=== PATIENT | female | born 2000 | race Caucasian/White ===

== ENCOUNTER → 2020-08-10 14:39 | Outpatient (BNVA) | payer MEDICAID, SELFPAY | PROVIDERS: Family Provider Nurse Practitioner; PCP Nurse Practitioner; Visit Provider Psychiatry & Neurology Psychiatry | DX: F32.9 Major depressive disorder, single episode, unspecified (principal) | CPT/HCPCS: 90792 ==

== ENCOUNTER → 2020-12-10 08:45 | Outpatient (BNVA) | payer MEDICAID, SELFPAY | PROVIDERS: Family Provider Nurse Practitioner; PCP Nurse Practitioner; Visit Provider Psychiatry & Neurology Psychiatry | DX: F32.9 Major depressive disorder, single episode, unspecified (principal) | CPT/HCPCS: 99214 ==

== ENCOUNTER → 2020-12-14 15:03 | Outpatient (BNVA) | payer MEDICAID, SELFPAY | PROVIDERS: Family Provider Nurse Practitioner; PCP Nurse Practitioner; Visit Provider Counselor Professional | DX: F33.2 Major depressive disorder, recurrent severe without psychotic features (principal); Z65.3 Problems related to other legal circumstances | CPT/HCPCS: 90832 ==

== ENCOUNTER → 2021-05-24 15:14 | Outpatient (BNVA) | payer MEDICAID, SELFPAY | PROVIDERS: Family Provider Nurse Practitioner; PCP Nurse Practitioner; Visit Provider Psychiatry & Neurology Psychiatry | DX: F32.9 Major depressive disorder, single episode, unspecified (principal) | CPT/HCPCS: 99214 ==

== ENCOUNTER → 2021-12-09 08:51 | Outpatient (BNVA) | payer MEDICAID, SELFPAY | PROVIDERS: Family Provider Nurse Practitioner; PCP Nurse Practitioner; Visit Provider Psychiatry & Neurology Psychiatry | DX: F32.9 Major depressive disorder, single episode, unspecified (principal) | CPT/HCPCS: 99214 ==

== ENCOUNTER → 2022-01-13 16:00 | Outpatient (BNVA) | payer MEDICAID, SELFPAY | PROVIDERS: Family Provider Nurse Practitioner; PCP Nurse Practitioner; Visit Provider Nurse Practitioner Psychiatric/Mental Health | DX: F32.9 Major depressive disorder, single episode, unspecified (principal); F41.9 Anxiety disorder, unspecified; G89.29 Other chronic pain; Z03.89 Encounter for observation for other suspected diseases and conditions ruled out | CPT/HCPCS: 99214 ==

== ENCOUNTER → 2022-02-10 15:35 | Outpatient (BNVA) | payer MEDICAID, SELFPAY | PROVIDERS: Family Provider Nurse Practitioner; PCP Nurse Practitioner; Visit Provider Nurse Practitioner Psychiatric/Mental Health | DX: F32.9 Major depressive disorder, single episode, unspecified (principal); F41.9 Anxiety disorder, unspecified; G89.29 Other chronic pain | CPT/HCPCS: 99214 ==

== ENCOUNTER 2022-02-13 17:54 | Emergency (ER) | payer MEDICAID, SELFPAY ==
[2022-02-13 18:03] VITALS: BP 124/87; PULSE 112; RESP 18; TEMP 36.5; O2SAT 98; BMI 32.8
--- NOTE | 2022-02-13 18:21 | W.ED.COVID ---
HPI - COVID General: Chief Complaint: COVID symptoms Stated Complaint: coughing, sore throat Time Seen by Provider: 02/13/22 18:21 Triage information: Has fever, cough or shortness of breath. History of Present Illness: 21-year-old female comes in today for complaints of cough, chest congestion, fever and headache. Patient denies any nausea or vomiting. Patient appears mildly unwell but not toxic. Patient appears in no pain. Patient has a history of depression and anxiety. Patient reports illness for 4 days. Prior covid testing: no COVID 19 common symptoms: positive fever(s), non-productive cough and throat pain; negative nausea, vomiting or diarrhea COVID 19 other sytmptoms: negative chest pain COVID Results: SARS-CoV-2 (PCR) Pending 02/13/22 18:40 02/13/22 Coronavirus Type 229E (PCR) Pending 02/13/22 18:40 02/13/22 Review of Systems General: Reports: 10 or more systems reviewed and unremarkable except in HPI and below Const: Reports: fever(s) and malaise Eyes: Denies: change in vision ENMT: Reports: throat pain and nasal discharge Card: Denies: chest pain Resp: Reports: non-productive cough and chest congestion GI: Denies: abdominal pain, nausea, vomiting, diarrhea or constipation : Denies: difficulty voiding Skin/Breast: Denies: rash PFSH ED PFSH: Medical History (Updated 02/13/22 @ 19:31 by DAVID Rossi) Anxiety MDD (major depressive disorder) Psychiatric care Social History (Updated 02/10/22 @ 15:55 by Theresa Melchor LPN) Smoking and tobacco status: current every day smoker cigarettes Packs smoked per day: 0.5 Years cigarettes smoked: 6 Second hand smoke exposure: Yes Current gender identity: Female Physical Exam Const: COMMON NORMALS: alert HENMT: COMMON NORMALS: normocephalic HEAD & SCALP: normocephalic NOSE: Nasal discharge present MOUTH: Normal oral and palatal mucosa present THROAT: posterior oropharynx normal Eye: COMMON NORMALS: EOMs intact bilaterally Neck/C-Spine: COMMON NORMALS: full ROM Resp: COMMON NORMALS: normal respiratory effort and clear to auscultation bilaterally AUSCULTATION: clear to auscultation bilaterally Cardio: COMMON NORMALS: regular rate and regular rhythm RATE: regular rate RHYTHM: regular rhythm GI: COMMON NORMALS: Soft to palpation and non-tender PALPATION: Yes Soft to palpation Extremity: COMMON NORMALS: normal to inspection Neuro: SENSORIUM/ORIENTATION: Yes alert Psych: COMMON NORMALS: cooperative Skin: COMMON NORMALS: no rashes or lesions noted GENERAL SKIN EXAM: no rashes or lesions noted Course Vital Signs: Vital signs: Vital Signs Temperature 97.7 F 02/13/22 18:03 Pulse Rate 70 02/13/22 18:46 Respiratory Rate 18 02/13/22 18:46 Blood Pressure 113/79 02/13/22 18:46 Pulse Oximetry 96 02/13/22 18:46 [facility] - COVID Medical Decision Making Patient comes in today with complaints of sore throat, cough, and chest congestion. Patient reports illness for 4 days. On exam posterior pharynx is pink and moist, skin is warm and dry. Patient does have some anterior cervical lymphadenopathy, lungs are clear to auscultation. Differential diagnosis includes upper respiratory infection influenza, strep pharyngitis, COVID-19. Chest x-ray was normal. Flu test was negative. Strep a was positive. Believe the patient probably has upper respiratory infection with a secondary strep infection. We will go ahead and treat strep with Augmentin 1 tablet twice a day for 7 days. Patient was also given 1 dose of dexamethasone to help with sore throat. Patient reported understanding of care plan need for follow-up or return to the ER. Lab Data Laboratory Results Influenza Type A Ag Negative (Negative) 02/13/22 18:40 Influenza Type B Ag Negative (Negative) 02/13/22 18:40 Group A Strep Rapid Positive (Negative) H 02/13/22 18:40 SARS-CoV-2 (PCR) Pending 02/13/22 18:40 02/13/22 Coronavirus Type 229E (PCR) Pending 02/13/22 18:40 02/13/22 Discharge Plan Discharge Patient Disposition: Home Clinical Impression: Strep pharyngitis URI (upper respiratory infection) Qualifiers: URI type: unspecified URI Qualified Code(s): J06.9 - Acute upper respiratory infection, unspecified Condition: Stable Prescriptions: New amoxicillin-pot clavulanate 875-125 mg tablet 1 tab PO BID Qty: 14 0RF No Action acetaminophen [Tylenol Extra Strength] 500 mg tablet 500 mg PO QID PRN0RF ibuprofen [Advil] 200 mg tablet 200 mg PO Q6H PRN0RF quetiapine 150 mg tablet extended release 24 hr 150 mg PO .q hs Qty: 30 1RF Rx Instructions: Take one table daily at bedtime venlafaxine 150 mg capsule,extended release 24hr 150 mg PO QAM Qty: 30 1RF Rx Instructions: Take one capsule by mouth every morning Discharge Orders: Discharge ED (Routine); Ordered 02/13/22 Ordered By: Bry Barrett Discharge Diet: Usual diet Discharge Activity: Increase activity as tolerated Patient Instructions: Strep Throat (ED) Activity Restrictions/Additional Instructions: Drink plenty of fluids. Use acetaminophen and ibuprofen for pain. Take antibiotic 1 tablet twice a day for the next 7 days. Follow-up with primary care for further instruction. Return to ER for new concerns. Coding Level of Care Code ED Marketing Sales Supervisor for [facility] Exam Comprehensive
--- NOTE | 2022-02-13 18:22 | XRR_ITS ---
PROCEDURE INFORMATION: Exam: XR Chest Exam date and time: 02/13/2022 6:37 PM Age: 21 years old Clinical indication: Cough TECHNIQUE: Imaging protocol: XR of the chest. Views: 1 view. COMPARISON: No relevant prior studies available. FINDINGS: Lungs: Unremarkable. No consolidation. Pleural spaces: Unremarkable. No pleural effusion. No pneumothorax. Heart/Mediastinum: Unremarkable. No cardiomegaly. Bones/joints: Unremarkable. XR/XR chest 1V portable [id number] IMPRESSION: No acute findings.
[2022-02-13 18:42] VITALS: O2SAT 98
[2022-02-13 18:46] VITALS: BP 113/79; PULSE 70; RESP 18; O2SAT 96
[2022-02-13 19:02] LABS: Rapid Strep A Test Positive (Negative)
[2022-02-13 19:12] LABS: Influenza A by IFA Negative (Negative); Influenza B by IFA Negative (Negative)
[2022-02-13] MEDS: dexamethasone 4 mg Tablet 10 MG PO (19:40)
[2022-02-13] MEDS: amoxicillin-clav 875-125 mg Tablet 1 TAB PO (19:40)
[2022-02-13 19:41] VITALS: BP 155/94; PULSE 107; RESP 20; O2SAT 99
[2022-02-13 20:42] LABS: Adenovirus Not Detected (NOT DETECT); Chlamydia Pneumoniae Not Detected (NOT DETECT); Coronavirus 229E,HKU1,NL63,OC4 Not Detected (NOT DETECT); Human Metapneumovirus Not Detected (NOT DETECT); Human Rhinovirus/Enterovirus Not Detected (NOT DETECT); Influenza A Not Detected (NOT DETECT); Influenza A H1 Not Detected (NOT DETECT); Influenza A H1-2009 Not Detected (NOT DETECT); Influenza A H3 Not Detected (NOT DETECT); Influenza B Not Detected (NOT DETECT); Mycoplasma Pneumoniae Not Detected (NOT DETECT); Parainfluenza Virus Type 1 Not Detected (NOT DETECT); Parainfluenza Virus Type 2 Not Detected (NOT DETECT); Parainfluenza Virus Type 3 Not Detected (NOT DETECT); Parainfluenza Virus Type 4 Not Detected (NOT DETECT); Respiratory Syncytial Virus A Not Detected (NOT DETECT); Respiratory Syncytial Virus B Not Detected (NOT DETECT); SARS-COV-2 Not Detected (NOT DETECT)
== END 2022-02-13 19:43 | disposition home or self-care (01) ==
PROVIDERS: Emergency Provider Nurse Practitioner Family
DX: J02.0 Streptococcal pharyngitis (principal); F17.210 Nicotine dependence, cigarettes, uncomplicated; Z20.822 Contact with and (suspected) exposure to COVID-19
CPT/HCPCS: 71045; 87635; 87804; 87880; 99283; J8540

== ENCOUNTER 2022-03-03 00:23 | Emergency (ER) | payer MEDICAID, SELFPAY ==
[2022-03-03 00:29] VITALS: BMI 31.8
--- NOTE | 2022-03-03 00:35 | W.ED.ALLEREA ---
HPI - Allergic Reaction General: Stated complaint: ALLERGIC REACTION Time Seen by Provider: 03/03/22 00:32 History of Present Illness: HPI narrative: 21-year-old female comes in today with complaints of itchy rash. Patient has [place] staying with her boyfriend [place] a camps[place] and was walking back to the campground and started having the itching rash with hives. Patient called EMS and was given Benadryl in route to the ER. Patient appears well. Patient appears no acute distress. Papular rashes noted generalized. Patient appears to have recently did a whole body shave. Review of Systems Const: Denies: fever(s) Card: Denies: chest pain Resp: Denies: dyspnea Skin/Breast: Reports: rash and pruritus PFS ED PFSH: Medical History (Updated 03/03/22 @ 00:34 by DAVID Rossi) Anxiety MDD (major depressive disorder) Psychiatric care Social History (Updated 02/10/22 @ 15:55 by Theresa Melchor LPN) Smoking and tobacco status: current every day smoker cigarettes Packs smoked per day: 0.5 Years cigarettes smoked: 6 Second hand smoke exposure: Yes Current gender identity: Female Physical Exam Const: COMMON NORMALS: alert HENMT: HEAD & SCALP: normal to inspection MOUTH: Normal oral and palatal mucosa present THROAT: posterior oropharynx normal Eye: COMMON NORMALS: Equal, round and reactive pupils present and EOMs intact bilaterally PUPIL: Yes Equal, round and reactive pupils present Resp: COMMON NORMALS: normal respiratory effort and clear to auscultation bilaterally AUSCULTATION: clear to auscultation bilaterally Cardio: COMMON NORMALS: regular rate and regular rhythm RATE: regular rate RHYTHM: regular rhythm Extremity: COMMON NORMALS: normal to inspection Neuro: SENSORIUM/ORIENTATION: Yes alert Skin: RASHES: rashes noted (Generalized papular rash) MDM - Allergic Reaction Medical Decision Making 21-year-old female comes in with a generalized itchy rash. On exam patient has a generalized papular rash. Patient also appears to have recently did a whole body shave. Patient reports she was [place] the campground when she was walking through the grass and started having itching, scratching, and hives. Vital signs are normal. Differential diagnosis includes contact dermatitis, allergic reaction, pseudobarbae folliculitis. Patient was given 50 mg in route to the ER with Benadryl with improvement in the redness and rash. Patient was given 10 mg of dexamethasone IV and 15 mg of ketorolac for the rash and complaints of a headache. We will continue patient on prednisone 20 mg twice a day for the next 7 days. Patient was also written for some hydroxyzine for the itching. Encourage plenty of fluids and follow-up with primary care. Discharge Plan Discharge Patient Disposition: Home Clinical Impression: Contact dermatitis and eczema due to plant Condition: Stable Prescriptions: New prednisone 20 mg tablet 20 mg PO BID 7 Days Qty: 14 0RF hydroxyzine HCl 25 mg tablet 25 mg PO Q6H PRN (Reason: itching) Qty: 20 0RF No Action acetaminophen [Tylenol Extra Strength] 500 mg tablet 500 mg PO QID PRN0RF ibuprofen [Advil] 200 mg tablet 200 mg PO Q6H PRN0RF quetiapine 150 mg tablet extended release 24 hr 150 mg PO .q hs Qty: 30 1RF Rx Instructions: Take one table daily at bedtime venlafaxine 150 mg capsule,extended release 24hr 150 mg PO QAM Qty: 30 1RF Rx Instructions: Take one capsule by mouth every morning amoxicillin-pot clavulanate 875-125 mg tablet 1 tab PO BID Qty: 14 0RF Discharge Orders: Discharge ED (Routine); Ordered 03/03/22 Ordered By: Bry Barrett Discharge Diet: Usual diet Discharge Activity: Increase activity as tolerated Patient Instructions: Contact Dermatitis (ED) Activity Restrictions/Additional Instructions: Take medications as directed. Drink plenty of water with medication. Follow-up with primary care in 1 week for recheck. Use calamine lotion to rash for discomfort. Return to ER for new concerns. Coding Level of Care Code ED Artistic Associate for Holly Del [facility]
[2022-03-03] MEDS: ketorolac 30 mg/mL INJ 15 MG IVP (00:58)
[2022-03-03] MEDS: dexamethasone 10 mg/mL INJ IVP (00:58)
[2022-03-03 01:14] VITALS: BP 133/94; PULSE 87; RESP 18; O2SAT 97
== END 2022-03-03 01:20 | disposition home or self-care (01) ==
PROVIDERS: Emergency Provider Nurse Practitioner Family
DX: L24.7 Irritant contact dermatitis due to plants, except food (principal); F17.210 Nicotine dependence, cigarettes, uncomplicated
CPT/HCPCS: 96374; 96375; 99283; J1100; J1885

== ENCOUNTER → 2022-03-22 13:16 | Outpatient (BNVA) | payer MEDICAID, SELFPAY | PROVIDERS: Visit Provider Nurse Practitioner Psychiatric/Mental Health | DX: F32.9 Major depressive disorder, single episode, unspecified (principal); F41.9 Anxiety disorder, unspecified; G89.29 Other chronic pain | CPT/HCPCS: 99213 ==

== ENCOUNTER 2022-03-24 16:44 | Emergency (ER) | payer MEDICAID, SELFPAY ==
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
[2022-03-24 16:56] VITALS: BP 142/73; PULSE 121; RESP 26; TEMP 37.1; O2SAT 96; BMI 33.6
[2022-03-24] MEDS: lactated ringers 1,000 ML 999 ML IV (17:43)
--- NOTE | 2022-03-24 17:47 | CTR_ITS ---
PROCEDURE INFORMATION: Exam: CT Head Without Contrast Exam date and time: 03/24/2022 6:09 PM Age: 21 years old Clinical indication: Syncope and collapse; Prior surgery; Surgery date: 6+ months; Surgery type: None to head; Additional info: Sz today with collapse TECHNIQUE: Imaging protocol: Computed tomography of the head without contrast. Axial and coronal reformatted images were created and reviewed. Radiation optimization: All CT scans at this facility use at least one of these dose optimization techniques: automated exposure control; mA and/or kV adjustment per patient size (includes targeted exams where dose is matched to clinical indication); or iterative reconstruction. COMPARISON: No relevant prior studies available. RADIATION DOSE METRICS: Total DLP (mGy-cm): 894.45 FINDINGS: Brain: No CT evidence of acute intracranial hemorrhage or acute territorial infarction. No significant mass effect or midline shift. Basal cisterns patent. Cerebral ventricles: Normal in size and configuration. Paranasal sinuses: Unremarkable. No fluid levels. Mastoid air cells: Grossly unremarkable. Bones/joints: No acute osseous abnormality. Soft tissues: Grossly unremarkable. CT/CT head wo con* [id number] IMPRESSION: 1. No CT evidence of acute intracranial pathology. 2. Additional findings, as above.
[2022-03-24 19:03] VITALS: BP 142/88; PULSE 109; RESP 20; O2SAT 99
[2022-03-24 19:34] LABS: Bilirubin Urine Neg (Negative); Blood Urine 3+ (Negative); Glucose Urine UA Norm (Normal); HCG Qualitative Urine. Negative (Negative); Ketones Urine 1+ (Negative); Nitrate Urine Negative (Negative); Protein Urine 1+ (Negative); Urine Appearance Hazy (CLEAR); Urine Color Red (Yellow); pH Urine 6.5 (5-7)
[2022-03-24 19:35] LABS: Add Urine Microscopic? YES; Leukocyte Esterase Urine Trace (Negative); Urobilinogen Urine 1 mg/dL (Negative)
[2022-03-24 19:44] LABS: Bacteria Urine 2+ /hpf; RBC Urine 50-80 /hpf (0-2); Squamous Epithelial Cell Urine 0-4 /hpf (0-5); WBC Urine 40-55 /hpf (0-5)
[2022-03-24 19:45] LABS: Add Urine Culture? Yes
[2022-03-24 19:46] LABS: Amphetamines Screen Urine Negative (Negative); Barbiturates Screen Urine Negative (Negative); Benzodiazepines Screen Urine Negative (Negative); Cocaine Screen Urine Negative (Negative); Opiate Screen Urine Negative (Negative); PCP Screen Urine Negative (Negative); THC Screen Urine Positive (Negative)
[2022-03-24 19:47] LABS: Basophils % 0.4 %; Eosinophils # 0.2 10^3/uL (0.0-0.8); Hematocrit 34.7 % (37.0-47.0); Hemoglobin 10.3 g/dL (11.5-15.3); Lymphocytes # 3.2 10^3/uL (0.8-4.8); Lymphocytes % 39.5 %; Mean Corpuscular HGB Conc 29.7 g/dL (30.0-36.0); Mean Corpuscular Hemoglobin 24.6 pg (28.0-34.0); Mean Platelet Volume 9.8 fL (7.4-10.4); Monocytes # 0.5 10^3/uL (0.2-0.9); Monocytes % 6.1 %; Neutrophils # 4.22 10^3/uL (1.8-7.7); Neutrophils % 51.8 %; Nucleated Red Blood Cells % 0 %; Platelet Count 380 10^3/cmm (130-400); Red Blood Count 4.18 10^6/uL (4.1-5.3); Red Cell Distribution Width 16.1 % (12.1-15.1); White Blood Count 8.2 10^3/uL (4.0-10.0)
[2022-03-24 20:00] VITALS: BP 131/87; PULSE 95; RESP 25; O2SAT 98
[2022-03-24] MEDS: metoclopramide 5 mg/mL SDV 2 mL 10 MG IVP (20:11)
[2022-03-24] MEDS: diphenhydrAMINE 50 mg/mL SDV 1mL IVP (20:11)
[2022-03-24 20:22] LABS: Alanine Aminotransferase 25 U/L (0-33); Albumin Level 3.5 g/dL (3.5-5.2); Alkaline Phosphatase 109 IU/L (35-105); Aspartate Amino Transferase 24 U/L (0-32); Blood Urea Nitrogen 6 mg/dL (6-20); Calcium 8.4 mg/dL (8.5-10.5); Carbon Dioxide 20 mmol/L (22-29); Chloride 107 mmol/L (98-107); Creatine Phosphokinase 60 U/L (26-192); Creatinine Clr Calc Pharmacy 151.7377; Globulin 3.6 g/dL (1.3-4.6); Glomerular Filtration Rate 123.9 mL/min (90-130); Glucose 62 mg/dL (65-115); Osmolality Calculated 286 mOsm/kg (285-295); Prolactin 11.48 ng/mL (4.8-23.3); Sodium 140 mmol/L (136-145); Thyroid Stimulating Hormone 1.58 uIU/mL (0.27-4.20); Total Bilirubin 0.2 mg/dL (0.15-1.2); Total Protein 7.1 g/dL (6.6-8.7)
[2022-03-24 20:26] LABS: Anion Gap 16.3 (5-19); Potassium 3.3 mmol/L (3.5-5.1)
[2022-03-24 20:38] VITALS: BP 131/87; PULSE 88; RESP 18; O2SAT 98
== END 2022-03-24 20:41 | disposition home or self-care (01) ==
PROVIDERS: Emergency Medicine; Emergency Provider Emergency Medicine
DX: R56.9 Unspecified convulsions (principal); R00.0 Tachycardia, unspecified; R41.0 Disorientation, unspecified
CPT/HCPCS: 70450; 80053; 80306; 81001; 81025; 82550; 84146; 84443; 85025; 87086; 96361; 96374; 96375; 99284; J1200; J2765

== ENCOUNTER 2022-03-29 15:35 | Emergency (ER) | payer MEDICAID, SELFPAY ==
[2022-03-29 16:14] VITALS: BP 127/87; PULSE 85; RESP 18; TEMP 37.2; O2SAT 99; BMI 33.6
--- NOTE | 2022-03-29 17:08 | W.ED.GENADLT ---
HPI - General Adult General: Chief complaint: General Medical Stated complaint: BOIL ON BUTTOCKS Time Seen by Provider: 03/29/22 17:07 History of Present Illness: 21-year-old female comes in today for complaints of pain to the bottom. Patient has difficulty sitting due to the discomfort. Patient reports pain is at the cleft of the buttocks. Patient denies any previous episodes. Patient reports symptoms for the last 3 to 4 days. Patient has a history of major depressive disorder, seizures, and anxiety. Associated symptoms: Deny chest pain, dyspnea, nausea or vomiting Review of Systems General: Reports: 10 or more systems reviewed and unremarkable except in HPI and below Const: Denies: fever(s) Card: Denies: chest pain Resp: Denies: dyspnea GI: Denies: nausea or vomiting Skin/Breast: Reports: erythema and skin tenderness PFSH ED PFSH: Medical History Anxiety MDD (major depressive disorder) Psychiatric care Social History Smoking and tobacco status: current every day smoker cigarettes Packs smoked per day: 0.5 Years cigarettes smoked: 6 Second hand smoke exposure: Yes Current gender identity: Female Female Reproductive History: Date of last menstrual period: 02/24/22 Physical Exam Const: COMMON NORMALS: alert HENMT: HEAD & SCALP: normal to inspection Neck/C-Spine: COMMON NORMALS: full ROM Resp: COMMON NORMALS: normal respiratory effort and clear to auscultation bilaterally AUSCULTATION: clear to auscultation bilaterally Cardio: COMMON NORMALS: regular rate RATE: regular rate Back/Pelvis: SACRUM: erythema and tenderness Extremity: COMMON NORMALS: normal to inspection Neuro: SENSORIUM/ORIENTATION: Yes alert Course Vital Signs: Vital signs: Vital Signs Temperature 98.9 F 03/29/22 16:14 Pulse Rate 84 03/29/22 17:11 Respiratory Rate 14 03/29/22 17:11 Blood Pressure 122/89 03/29/22 17:11 Pulse Oximetry 100 03/29/22 17:11 [facility] - General Adult Medical Decision Making 21-year-old female comes in today with complaints of tenderness to the cleft of the buttocks. On exam there is area of induration and redness at the gluteal cleft. Vital signs are normal without significant fever. Patient denies any nausea or vomiting. Differential diagnosis includes pilonidal cyst, skin abscess, cellulitis, intertrigo. No fluctuance was noted on palpation suspect at this time cellulitis with possible developing abscess. We will go ahead and start patient on clindamycin 300 mg 4 times a day for the next 7 days. Patient was given hydrocodone to assist with pain. Patient was recommended to do good hygiene with frequent warm soaks. Encourage fluids rest and Tylenol and ibuprofen for further comfort. Patient reported understanding. Discharge Plan Discharge Patient Disposition: Home Clinical Impression: Cellulitis of buttock Condition: Stable Prescriptions: New clindamycin HCl 300 mg capsule 300 mg PO QID 7 Days Qty: 28 0RF hydrocodone-acetaminophen 5-325 mg tablet 1 tab PO TID PRN (Reason: pain) Qty: 6 0RF No Action hydroxyzine HCl 25 mg tablet 25 mg PO BID PRN (Reason: anxiety) Qty: 60 2RF Rx Instructions: Take one tablet twice a day, if needed for anxiety venlafaxine 150 mg capsule,extended release 24hr 150 mg PO QAM Qty: 30 2RF Rx Instructions: Take one capsule by mouth every morning quetiapine 150 mg tablet extended release 24 hr 150 mg PO BEDTIME 0RF Rx Instructions: Take one table daily at bedtime Discharge Orders: Discharge ED (Routine); Ordered 03/29/22 Ordered By: Bry Barrett Discharge Diet: Usual diet Discharge Activity: Increase activity as tolerated Patient Instructions: Cellulitis (ED), Opioid Safety Activity Restrictions/Additional Instructions: Warm water soaks. Soaks are for comfort and to help bring blood flow into the area for the infection. Drink plenty of water with medication. Use acetaminophen and ibuprofen for pain. Use hydrocodone for severe pain. Follow-up with primary care in 3 days for recheck. Return to ER for new concerns. Coding Level of Care Code ED Environmental Services Tech for Holly Fwd Exam Detailed
[2022-03-29 17:11] VITALS: BP 122/89; PULSE 84; RESP 14; O2SAT 100
--- NOTE | 2022-03-29 17:12 | PC.NURSE ---
Patient states that for about a week she has a boil on her upper buttocks. Patient states it is hard, it looks red.
== END 2022-03-29 17:55 | disposition home or self-care (01) ==
PROVIDERS: Emergency Provider Nurse Practitioner Family
DX: L03.317 Cellulitis of buttock (principal)
CPT/HCPCS: 99283

== ENCOUNTER → 2022-04-28 10:22 | Outpatient (BNVA) | payer MEDICAID, SELFPAY | PROVIDERS: Visit Provider Nurse Practitioner Psychiatric/Mental Health | DX: F41.9 Anxiety disorder, unspecified (principal); F32.9 Major depressive disorder, single episode, unspecified | CPT/HCPCS: 99214 ==

== ENCOUNTER → 2022-10-03 14:53 | Outpatient (BNVA) | payer MEDICAID, SELFPAY | PROVIDERS: PCP Family Medicine; Visit Provider Family Medicine | DX: M25.562 Pain in left knee (principal) | CPT/HCPCS: 73562 ==

== ENCOUNTER → 2022-10-17 17:36 | Outpatient (BNVA) | payer MEDICAID, SELFPAY | PROVIDERS: PCP Family Medicine; Visit Provider Family Medicine | DX: Z01.419 Encounter for gynecological examination (general) (routine) without abnormal findings (principal) | CPT/HCPCS: 88175 ==

== ENCOUNTER 2022-10-18 20:13 | Emergency (ER) | payer MEDICAID, SELFPAY ==
[2022-10-18 20:45] VITALS: BP 111/58; PULSE 76; RESP 17; O2SAT 100; BMI 35.4
[2022-10-18 21:08] LABS: Basophils # 0.1 10^3/uL (0.0-0.1); Basophils % 0.5 %; Eosinophils # 0.3 10^3/uL (0.0-0.8); Eosinophils % 3.1 %; Hematocrit 41.7 % (37.0-47.0); Hemoglobin 13.2 g/dL (11.5-15.3); Lymphocytes # 4.5 10^3/uL (0.8-4.8); Lymphocytes % 40.5 %; Mean Corpuscular HGB Conc 31.7 g/dL (30.0-36.0); Mean Corpuscular Hemoglobin 26.2 pg (28.0-34.0); Mean Corpuscular Volume 82.9 fl (81-99); Mean Platelet Volume 9.4 fL (7.4-10.4); Monocytes # 0.7 10^3/uL (0.2-0.9); Monocytes % 5.9 %; Neutrophils # 5.51 10^3/uL (1.8-7.7); Neutrophils % 49.8 %; Nucleated Red Blood Cells % 0 %; Platelet Count 444 10^3/cmm (130-400); Red Blood Count 5.03 10^6/uL (4.1-5.3)
[2022-10-18 21:37] LABS: Alanine Aminotransferase 30 U/L (0-33); Albumin Level 4.5 g/dL (3.5-5.2); Alkaline Phosphatase 133 U/L (35-105); Anion Gap 18.9 (5-19); Aspartate Amino Transferase 23 U/L (0-32); Blood Urea Nitrogen 10 mg/dL (6-20); Calcium 10.1 mg/dL (8.5-10.5); Carbon Dioxide 23 mmol/L (22-29); Chloride 99 mmol/L (98-107); Globulin 4.7 g/dL (1.3-4.6); Glomerular Filtration Rate 88.1 mL/min (90-130); Glucose 84 mg/dL (65-115); Lipase 32 U/L (13-60); Osmolality Calculated 282 mOsm/kg (285-295); Potassium 3.9 mmol/L (3.5-5.1); Sodium 137 mmol/L (136-145); Total Bilirubin 0.3 mg/dL (0.15-1.2); Total Protein 9.2 g/dL (6.6-8.7)
[2022-10-18 22:38] LABS: HCG, Serum Qual Negative (Negative)
== END 2022-10-18 23:40 | disposition left against medical advice (07) ==
PROVIDERS: Emergency Medicine; Emergency Provider Family Medicine; PCP Family Medicine
DX: Z53.21 Procedure and treatment not carried out due to patient leaving prior to being seen by health care provider (principal)
CPT/HCPCS: 80053; 83690; 84703; 85025

== ENCOUNTER 2023-03-29 21:07 | Emergency (ER) | payer MEDICAID, SELFPAY ==
[2023-03-29 21:11] VITALS: BP 126/82; PULSE 77; RESP 17; TEMP 36.6; O2SAT 99; BMI 31.8
[2023-03-29 21:46] LABS: Basophils % 0.3 %; Eosinophils # 0.1 10^3/uL (0.0-0.8); Hematocrit 37.9 % (37.0-47.0); Lymphocytes # 3.3 10^3/uL (0.8-4.8); Lymphocytes % 36.7 %; Mean Corpuscular HGB Conc 31.7 g/dL (30.0-36.0); Mean Corpuscular Volume 88.3 fl (81-99); Mean Platelet Volume 9.6 fL (7.4-10.4); Monocytes # 0.6 10^3/uL (0.2-0.9); Monocytes % 6.3 %; Neutrophils # 4.92 10^3/uL (1.8-7.7); Neutrophils % 55.5 %; Nucleated Red Blood Cells % 0 %; Platelet Count 381 10^3/cmm (130-400); Red Blood Count 4.29 10^6/uL (4.1-5.3); Red Cell Distribution Width 15.2 % (12.1-15.1); White Blood Count 8.9 10^3/uL (4.0-10.0)
[2023-03-29 22:05] LABS: HCG, Serum Qual Negative (Negative)
[2023-03-29 22:17] LABS: Alanine Aminotransferase 19 U/L (0-33); Albumin Level 3.9 g/dL (3.5-5.2); Alkaline Phosphatase 104 U/L (35-105); Anion Gap 15.1 (5-19); Aspartate Amino Transferase 19 U/L (0-32); Blood Urea Nitrogen 8 mg/dL (6-20); Calcium 9.1 mg/dL (8.5-10.5); Carbon Dioxide 23 mmol/L (22-29); Chloride 102 mmol/L (98-107); Globulin 3.7 g/dL (1.3-4.6); Glomerular Filtration Rate 102.8 mL/min (90-130); Glucose 80 mg/dL (65-115); Osmolality Calculated 279 mOsm/kg (285-295); Potassium 4.1 mmol/L (3.5-5.1); Sodium 136 mmol/L (136-145); Total Bilirubin 0.2 mg/dL (0.15-1.2); Total Protein 7.6 g/dL (6.6-8.7)
--- NOTE | 2023-03-29 22:51 | ED_ITS ---
HPI - Abdominal Pain General: Chief Complaint: Abdominal Pain Stated Complaint: Upper ABD Pain Time Seen by Provider: 03/29/23 22:49 History of Present Illness: 22-year-old female comes in today for complaints of abdominal pain radiating to the right lower quadrant. Patient appears nontoxic. Patient reports no episodes of emesis today. Patient reports some loose stools. Patient reports chills but no fever. Patient has had 1 and her gallbladder out. Patient takes medications for mental health disorder. Patient denies any falls or injuries. Associated Symptoms: Reports chills and nausea; Denies constipation, diarrhea, fever(s) and vomiting Review of Systems Const: Reports: chills; Denies: fever(s) Card: Denies: chest pain Resp: Denies: dyspnea GI: Reports: abdominal pain and nausea; Denies: vomiting, diarrhea or constipation : Denies: difficulty voiding, vaginal bleeding or vaginal discharge Musc: Denies: neck pain or back pain Skin/Breast: Denies: rash Neuro: Denies: headache(s) PFSH ED PFSH: Medical History Anxiety MDD (major depressive disorder) Psychiatric care Family History Mother Cancer Reportedly Ovarian cancer in her late 20's resulting in a hysterectomy Unknown Cancer unknown family member, breast cancer Social History Smoking and tobacco status: current every day smoker cigarettes Packs smoked per day: 0.5 Years cigarettes smoked: 6 Second hand smoke exposure: Yes Current gender identity: Female Female Reproductive History: Para: 1 Spontaneous abortions: Yes Physical Exam Const: COMMON NORMALS: alert HENMT: COMMON NORMALS: normocephalic HEAD & SCALP: normocephalic Neck/C-Spine: COMMON NORMALS: full ROM Resp: COMMON NORMALS: normal respiratory effort and clear to auscultation bilaterally AUSCULTATION: clear to auscultation bilaterally Cardio: COMMON NORMALS: regular rate and regular rhythm RATE: regular rate RHYTHM: regular rhythm GI: COMMON NORMALS: Soft to palpation AUSCULTATION: Yes normoactive bowel sounds PALPATION: Yes Soft to palpation and Yes Tenderness to palpation present (GI) Extremity: COMMON NORMALS: normal to inspection Neuro: SENSORIUM/ORIENTATION: Yes alert Skin: COMMON NORMALS: turgor normal GENERAL SKIN EXAM: turgor normal Course Vital Signs: Vital signs: Vital Signs Temperature 97.8 F 03/29/23 21:11 Pulse Rate 77 03/29/23 21:11 Respiratory Rate 17 03/29/23 21:11 Blood Pressure 126/82 03/29/23 21:11 Pulse Oximetry 99 03/29/23 21:11 Oxygen Delivery Me thod Room Air 03/29/23 21:11 MDM - Abdominal Pain Medical Decision Making 22-year-old female comes in today for complaints of lower abdominal pain start ing yesterday. Patient reports worsening pain today. Patient reports nausea with only vomiting yesterday. Patient states it reminds her when she had ovarian cyst. Patient denies any abnormal bleeding or vaginal discharge. Vital signs are normal. Abdomen is soft with tenderness in the right lower quadrant. Differential diagnosis includes appendicitis, ovarian cyst, muscle strain, gastroenteritis, renal colic. Laboratory values were unremarkable. Urinalysis was clean. CT of the abdomen pelvis noted prominent fluid in the small bowel suggesting enteritis. Reviewed exam with patient suspect gastroenteritis. Will treat with Zofran for nausea and hydrocodone for pain and discomfort. Recommend follow-up with primary care. Return to ED for worsening symptoms or new concerns. Patient reported understanding agreed to plan. Lab Data 03/29/23 21:22 03/29/23 21:22 Labs/Radiology: Radiology Impressions Abdomen/Pelvis CT 03/29/23 22:57 IMPRESSION: 1. Prominent fluid in the small bowel without dilation suggestive of an enteritis. 2. Hepatic steatosis. 3. Cholecystectomy. Laboratory Results WBC 8.9 10^3/uL (4.0-10.0) 03/29/23 21: RBC 4.29 10^6/uL (4.1-5.3) 03/29/23: Hgb 12.0 g/dL (11.5-15.3) 03/29/23: Hct 37.9 % (37.0-47.0) 03/29/23 21: MCV 88.3 fl (81-99) 03/29/23 21: MCH 28.0 pg (28.0-34.0) 03/29/23: MCHC 31.7 g/dL (30.0-36.0) 03/29/23 21: RDW 15.2 % (12.1-15.1) H 03/29/23 21: Plt Count 381 10^3/cmm (130-400) 03/29/23 21: MPV 9.6 fL (7.4-10.4) 03/29/23 21: Neut % (Auto) 55.5 % 03/29/23 21: Lymph % (Auto) 36.7 % 03/29/23 21:22 [place] % (Auto) 6.3 % 03/29/23 21:22 Eos % (Auto) 1.0 % 03/29/23 21: Baso % (Auto) 0.3 % 03/29/23 21: Neut # (Auto) 4.92 10^3/uL (1.8-7.7) 03/29/23 21: Lymph # (Auto) 3.3 10^3/uL (0.8-4.8) 03/29/23 21: [place] # (Auto) 0.6 10^3/uL (0.2-0.9) 03/29/23 21:22 Eos # (Auto) 0.1 10^3/uL (0.0-0.8) 03/29/23 21: Baso # (Auto) 0.0 10^3/uL (0.0-0.1) 03/29/23 21: Nucleated RBC % (auto) 0 % 03/29/23 21: Nucleated RBCs # 0.0 /100WBC 03/29/23 21: Sodium 136 mmol/L (136-145) 03/29/23 21: Potassium 4.1 mmol/L (3.5-5.1) 03/29/23 21: Chloride 102 mmol/L (98-107) 03/29/23 21: Carbon Dioxide 23 mmol/L (22-29) 03/29/23 21:22 Anion Gap 15.1 (5-19) 03/29/23 21:22 BUN 8 mg/dL (6-20) 03/29/23 21: Creatinine 0.7 mg/dL (0.5-0.9) 03/29/23 21: GFR Calculation 102.8 mL/min (90-130) 03/29/23 21:22 Glucose 80 mg/dL (65-115) 03/29/23 21:22 Calculated Osmolality 279 mOsm/kg (285-295) L 03/29/23 21:22 Calcium 9.1 mg/dL (8.5-10.5) 03/29/23 21:22 Total Bilirubin 0.2 mg/dL (0.15-1.2) 03/29/23 21:22 AST 19 U/L (0-32) 03/29/23 21: ALT 19 U/L (0-33) 03/29/23 21:22 Alkaline Phosphatase 104 U/L (35-105) 03/29/23 21:22 Total Protein 7.6 g/dL (6.6-8.7) 03/29/23 21: Albumin 3.9 g/dL (3.5-5.2) 03/29/23 21: Globulin 3.7 g/dL (1.3-4.6) 03/29/23 21: Lipase 30 U/L (13-60) 03/29/23 21:22 HCG, Qual Negative (Negative) 03/29/23 21:22 Urine Color Yellow (Yellow) 03/29/23 23:50 Urine Appearance Clear (CLEAR) 03/29/23 23:50 Urine pH 5 (5-7) 03/29/23 23:50 Ur Specific [place] 1.015 (1.005-1.030) 03/29/23 23:50 Urine Protein Neg (Negative) 03/29/23 23:50 Urine Glucose (UA) Norm (Normal) 03/29/23 23:50 Urine Ketones Negative (Negative) 03/29/23 23:50 Urine Blood Neg (Negative) 03/29/23 23:50 Urine Nitrate Negative (Negative) 03/29/23 23:50 Urine Bilirubin Neg (Negative) 03/29/23 23:50 Urine Urobilinogen Norm mg/dL (Negative) 03/29/23 23:50 Ur Leukocyte Esterase Negative (Negative) 03/29/23 23:50 Discharge Plan Discharge Patient Disposition: Home Clinical Impression: Gastroenteritis Condition: Stable Prescriptions: New ondansetron HCl 4 mg tablet 4 mg PO Q8H PRN (Reason: nausea and vomiting) Qty: 7 0RF hydrocodone-acetaminophen 5-325 mg tablet 1 tab PO Q8H PRN (Reason: pain (scale score 7-10)) Qty: 6 0RF No Action bupropion HCl 75 mg tablet 75 mg PO BID Qty: 60 1RF Rx Instructions: After stopping venlfaxine:Take 1 tablet twice a day, at 8 AM and 2 PM hydroxyzine HCl 25 mg tablet 25 mg PO BID PRN (Reason: anxiety) Qty: 60 2RF Rx Instructions: Take one tablet twice a day, if needed for anxiety quetiapine 150 mg tablet extended release 24 hr 150 mg PO BEDTIME Qty: 30 2RF Rx Instructions: Take one table daily at bedtime Discharge Orders: Discharge ED (Routine); Ordered 03/30/23 Ordered By: Bry Barrett Referrals: Jailene Bradshaw MD [Primary Care Provider] - Discharge Diet: Usual diet Discharge Activity: Increase activity as tolerated Patient Instructions: Gastroenteritis (ED) Activity Restrictions/Additional Instructions: Drink plenty of water and fluids. Use ondansetron 4 mg every 8 hours as needed for nausea or vomiting. Use hydrocodone for severe abdominal pain. Activity as tolerated. Follow-up with primary care for further instructions. Return to ED for new concerns. Coding Level of Care Code ED Traditional Chinese Herbalist for Holly Del Cid
--- NOTE | 2023-03-29 22:57 | CTR_ITS ---
PROCEDURE INFORMATION: Exam: CT Abdomen And Pelvis With Contrast Exam date and time: 03/29/2023 11:19 PM Age: 22 years old Clinical indication: Abdominal pain; Prior surgery; Surgery date: 6+ months; Surgery type: Gb; Patient HX: C/O periumbilical pain; Additional info: Diffuse abd pain TECHNIQUE: Imaging protocol: Computed tomography of the abdomen and pelvis with contrast. Radiation optimization: All CT scans at this facility use at least one of these dose optimization techniques: automated exposure control; mA and/or kV adjustment per patient size (includes targeted exams where dose is matched to clinical indication); or iterative reconstruction. Contrast material: OMNI 350; Contrast volume: 100 ml; Contrast route: INTRAVENOUS (IV); REPORTING DATA: Count of CT and Cardiac NM exams in prior 12 months: This patient has received 0 known CTs and 0 known cardiac nuclear medicine studies in the 12 months prior to the current study. COMPARISON: CR XR chest 1V portable [id number] 02/13/2022 6:37 PM RADIATION DOSE METRICS: Total DLP (mGy-cm): 828.53 FINDINGS: Liver: Hepatic steatosis. Gallbladder and bile ducts: Cholecystectomy. Pancreas: Normal. No ductal dilation. Spleen: Normal. No splenomegaly. Adrenal glands: Normal. No mass. Kidneys and ureters: Normal. No hydronephrosis. Stomach and bowel: Prominent fluid in the small bowel without dilation suggestive of an enteritis. Appendix: No evidence of appendicitis. Intraperitoneal space: Unremarkable. No free air. No significant fluid collection. Vasculature: Unremarkable. No abdominal aortic aneurysm. Lymph nodes: Unremarkable. No enlarged lymph nodes. Urinary bladder: Unremarkable as visualized. Reproductive: Unremarkable as visualized. Bones/joints: Unremarkable. No acute fracture. Soft tissues: Unremarkable. CT/CT abdomen pelvis w con* [id number] IMPRESSION: 1. Prominent fluid in the small bowel without dilation suggestive of an enteritis. 2. Hepatic steatosis. 3. Cholecystectomy.
[2023-03-29] MEDS: iohexol 350 mg/mL 500 mL Btl (per mL) IV (23:22)
[2023-03-29] MEDS: sodium chloride 0.9% 1,000 ML 999 ML IV (23:31)
[2023-03-29] MEDS: diphenhydrAMINE 50 mg/mL SDV 1mL 12.5 MG IVP (23:32)
[2023-03-29] MEDS: ketorolac 30 mg/mL INJ 15 MG IVP (23:33)
[2023-03-29] MEDS: metoclopramide 5 mg/mL SDV 2 mL 10 MG IVP (23:34)
[2023-03-29 23:58] LABS: Add Urine Microscopic? NO; Bilirubin Urine Neg (Negative); Blood Urine Neg (Negative); Charge for UA Resulting for Rev; Glucose Urine UA Norm (Normal); Ketones Urine Negative (Negative); Leukocyte Esterase Urine Negative (Negative); Nitrate Urine Negative (Negative); Protein Urine Neg (Negative); Specific Gravity, Urine 1.015 (1.005-1.030); Urine Appearance Clear (CLEAR); Urine Color Yellow (Yellow); Urobilinogen Urine Norm (Negative); pH Urine 5 (5-7)
[2023-03-30 00:16] LABS: Lipase 30 U/L (13-60)
[2023-03-30] MEDS: HYDROcodone-acetaminophen 5-325 mg Tablet 1 TAB PO (00:32)
[2023-03-30] MEDS: ondansetron 4 MG Tablet PO (00:33)
[2023-03-30 00:53] VITALS: BP 151/82; PULSE 82; O2SAT 100
== END 2023-03-30 00:55 | disposition home or self-care (01) ==
PROVIDERS: Emergency Medicine; Emergency Provider Nurse Practitioner Family; PCP Family Medicine
DX: K52.9 Noninfective gastroenteritis and colitis, unspecified (principal); F17.210 Nicotine dependence, cigarettes, uncomplicated
CPT/HCPCS: 36415; 74177; 80053; 81003; 83690; 84703; 85025; 96361; 96374; 96375; 99284; J1200; J1885; J2765; J7030; Q0162; Q9967

== ENCOUNTER → 2023-05-15 13:00 | Outpatient (BNVA) | payer MEDICAID, SELFPAY | PROVIDERS: PCP Family Medicine; Visit Provider Obstetrics & Gynecology | DX: Z01.818 Encounter for other preprocedural examination (principal); R87.611 Atypical squamous cells cannot exclude high grade squamous intraepithelial lesion on cytologic smear of cervix (ASC-H) | CPT/HCPCS: 81025; 88305 ==

== ENCOUNTER 2023-09-27 15:15 | Emergency (ER) | payer MEDICAID, SELFPAY ==
[2023-09-27 15:16] VITALS: BP 135/84; PULSE 61; RESP 18; TEMP 36.8; O2SAT 100; BMI 28.3
[2023-09-27 15:20] VITALS: BP 135/84; O2SAT 100
--- NOTE | 2023-09-27 15:34 | ED_ITS ---
HPI - Abdominal Pain General: Chief Complaint: Abdominal Pain Stated Complaint: abd pain Time Seen by Provider: 09/27/23 15:23 History of Present Illness: 23-year-old female comes in today with complaints of of upper abdominal pain for 5 days. Patient appears nontoxic. Patient appears anxious. Patient appears in mild to no pain. Patient has a history of gastritis, gallbladder disease with cholecystectomy, asthma, anxiety disorder, depression disorder, bipolar disorder, and seizure. Patient has been using ibuprofen and Aleve for pain with minimal to no relief. Patient does admit that she has been without her routine medications for the last 2 months. Patient states that she has had cholecystectomy and a in the past. Associated Symptoms: Reports chills, nausea and vomiting; Denies constipation and diarrhea Review of Systems General: Reports: 10 or more systems reviewed and unremarkable except in HPI and below Const: Reports: chills ENMT: Denies: throat pain Card: Denies: chest pain Resp: Reports: dyspnea GI: Reports: nausea and vomiting; Denies: diarrhea or constipation : Reports: vaginal discharge; Denies: flank pain, difficulty voiding or vaginal bleeding Musc: Denies: back pain Skin/Breast: Denies: rash Neuro: Denies: headache(s) Psych: Reports: anxiety PFSH ED PFSH: Medical History Anxiety MDD (major depressive disorder) Psychiatric care Family History Mother Cancer Reportedly Ovarian cancer in her late 20's resulting in a hysterectomy Unknown Cancer unknown family member, breast cancer Social History Smoking and tobacco/nicotine status: current every day tobacco/nicotine user cigarettes Packs smoked per day: 0.5 Years cigarettes smoked: 6 Second hand smoke exposure: Yes Current gender identity: Female Female Reproductive History: Para: 1 Spontaneous abortions: Yes Physical Exam Const: COMMON NORMALS: alert HENMT: COMMON NORMALS: normocephalic HEAD & SCALP: normocephalic MOUTH: Normal oral and palatal mucosa present Eye: GENERAL EYE: appearance normal, both eyes and all related structures Neck/C-Spine: COMMON NORMALS: full ROM Resp: COMMON NORMALS: normal respiratory effort and clear to auscultation bilaterally AUSCULTATION: clear to auscultation bilaterally Cardio: COMMON NORMALS: regular rate and regular rhythm RATE: regular rate RHYTHM: regular rhythm GI: COMMON NORMALS: Soft to palpation INSPECTION: Yes normal to inspection AUSCULTATION: Yes normoactive bowel sounds PALPATION: Yes Soft to p alpation, Yes Tenderness to palpation present (GI) (Generalized), No Guarding due to palpation present (GI) and No Rebound tenderness present : BLADDER/KIDNEY EXAM: Yes CVA tenderness (Mild) on the right Back/Pelvis: GENERAL BACK: Yes CVA tenderness (Mild) Extremity: COMMON NORMALS: normal to inspection and no pedal edema Neuro: SENSORIUM/ORIENTATION: Yes alert Skin: COMMON NORMALS: turgor normal GENERAL SKIN EXAM: turgor normal Course Vital Signs: Vital signs: Vital Signs Temperature 98.2 F 09/27/23 15:16 Pulse Rate 61 09/27/23 16:29 Respiratory Rate 18 09/27/23 16:29 Blood Pressure 135/84 09/27/23 15:16 Pulse Oximetry 100 09/27/23 16:29 Oxygen Delivery Me thod Room Air 09/27/23 16:29 MDM - Abdominal Pain Medical Decision Making 23-year-old female comes in today for complaints of epigastric abdominal pain for 5 days with no relief from Tylenol or ibuprofen. Patient appears nontoxic. Abdomen soft without guarding or rebound tenderness. Bowel sounds are present. Patient moves all extremities well. Patient endorses right CVA tenderness with percussion. Vital signs are normal. Differential diagnosis includes but not limited to gastritis, pancreatitis, bowel obstruction, peptic ulcer disease, renal calculi, urinary tract infection, constipation, malingering, anxiety disorder, choledocholithiasis, gastroenteritis. Acute abdomen series was unremarkable. CBC CMP were normal. Urinalysis was normal. Patient was treated with albuterol 2 puffs and lorazepam and famotidine. Patient significant reduction in pain and shortness of breath. We will continue patient on medication for gastritis, anxiety, and asthma. Patient needs to follow-up with primary care for further evaluation and refills of other medications that she has been without. Patient was stable and improved and discharged home. Lab Data 09/27/23 15:33 09/27/23 15:33 Labs/Radiology: Laboratory Results WBC 8.58 10^3/uL (3.29-11.43) 09/27/23 15: RBC 4.27 10^6/uL (3.85-5.65) 09/27/23 15: Hgb 11.40 g/dL (11.27-16.99) 09/27/23 15: Hct 36.4 % (36-47) 09/27/23 15: MCV 85.2 fl (85-98) 09/27/23 15: MCH 26.7 pg (27-33) L 09/27/23 15: MCHC 31.3 g/dL (30-55) 09/27/23 15: RDW 16.4 % (12.1-15.1) H 09/27/23 15: Plt Count 299 10^3/cmm (157-399) 09/27/23 15: MPV 9.8 fL (7.4-10.4) 09/27/23 15: Neut % (Auto) 58.8 % 09/27/23: Lymph % (Auto) 34.8 % 09/27/23 15: [place] % (Auto) 5.1 % 09/27/23 15: Eos % (Auto) 0.9 % 09/27/23: Baso % (Auto) 0.3 % 09/27/23: Neut # (Auto) 5.03 10^3/uL (1.8-7.7) 09/27/23: Lymph # (Auto) 3.0 10^3/uL (0.8-4.8) 09/27/23: [place] # (Auto) 0.4 10^3/uL (0.2-0.9) 09/27/23 15: Eos # (Auto) 0.1 10^3/uL (0.0-0.8) 09/27/23: Baso # (Auto) 0.0 10^3/uL (0.0-0.1) 09/27/23 15: Nucleated RBC % (auto) 0 % 09/27/23 15: Nucleated RBCs # 0.0 /100WBC 09/27/23 15: Sodium 137 mmol/L (136-145) 09/27/23 15: Potassium 3.4 mmol/L (3.5-5.1) L 09/27/23 15:33 Chloride 104 mmol/L (98-107) 09/27/23 15:33 Carbon Dioxide 19 mmol/L (22-29) L 09/27/23 15:33 Anion Gap 17.4 (5-19) 09/27/23 15:33 BUN 6 mg/dL (6-20) 09/27/23 15:33 Creatinine 0.7 mg/dL (0.5-0.9) 09/27/23 15:33 GFR Calculation 102.0 mL/min (90-130) 09/27/23 15:33 Glucose 86 mg/dL (65-115) 09/27/23 15:33 Calculated Osmolality 281 mOsm/kg (285-295) L 09/27/23 15:33 Calcium 9.5 mg/dL (8.5-10.5) 09/27/23 15:33 Total Bilirubin 0.2 mg/dL (0.15-1.2) 09/27/23 15:33 AST 15 U/L (0-32) 09/27/23 15:33 ALT 19 U/L (0-33) 09/27/23 15:33 Alkaline Phosphatase 97 U/L (35-105) 09/27/23 15:33 Total Protein 7.4 g/dL (6.6-8.7) 09/27/23 15:33 Albumin 3.8 g/dL (3.5-5.2) 09/27/23 15:33 Globulin 3.6 g/dL (1.3-4.6) 09/27/23 15: Lipase 48 U/L (13-60) 09/27/23 15:33 HCG, Qual Negative (Negative) 09/27/23 15:33 Urine Color Yellow (Yellow) 09/27/23 16:17 Urine Appearance Clear (CLEAR) 09/27/23 16:17 Urine pH 7 (5-7) 09/27/23 16:17 Ur Specific Surveyor 1.010 (1.005-1.030) 09/27/23 16:17 Urine Protein Neg (Negative) 09/27/23 16:17 Urine Glucose (UA) Norm (Normal) 09/27/23 16:17 Urine Ketones Negative (Negative) 09/27/23 16:17 Urine Blood Neg (Negative) 09/27/23 16:17 Urine Nitrate Negative (Negative) 09/27/23 16:17 Urine Bilirubin Neg (Negative) 09/27/23 16:17 Urine Urobilinogen Norm mg/dL (Negative) 09/27/23 16:17 Ur Leukocyte Esterase Negative (Negative) 09/27/23 16:17 XR interpretation done by ED provider, pending radiology final review Discharge Plan Discharge Patient Disposition: Home Clinical Impression: Anxiety Gastritis Qualifiers: Gastritis type: unspecified gastritis Chronicity: unspecified Gastritis bleeding: without bleeding Qualified Code(s): K29.70 - Gastritis, unspecified, without bleeding Abdominal pain Qualifiers: Abdominal location: right upper quadrant Qualified Code(s): R10.11 - Right upper quadrant pain Condition: Stable Prescriptions: New pantoprazole 20 mg tablet,delayed release (DR/EC) 20 mg PO DAILY Qty: 30 0RF dicyclomine 10 mg capsule 10 mg PO QID PRN (Reason: abdominal pain) Qty: 20 0RF hydroxyzine HCl 50 mg tablet 50 mg PO TID PRN (Reason: anxiety) Qty: 15 0RF Discharge Orders: Discharge ED (Routine); Ordered 09/27/23 Ordered By: Bry Barrett Referrals: Jailene Bradshaw MD [Primary Care Provider] - Discharge Diet: Usual diet Discharge Activity: Increase activity as tolerated Patient Instructions: Abdominal Pain (ED) Activity Restrictions/Additional Instructions: Home and rest. Drink plenty water and fluids. Take medications as directed. Case management will contact you regarding follow-up appointment with primary care. Return to ED for new concerns or worsening symptoms. Worsening symptoms include but not limited to high fever greater than 100.4, blood in vomit or stool, or severe pain. Coding Level of Care Code ED Transmission Operator for Holly Del Cid
--- NOTE | 2023-09-27 15:36 | XRR_ITS ---
PROCEDURE INFORMATION: Exam: XR Abdomen Exam date and time: 09/27/2023 4:08 PM Age: 23 years old Clinical indication: Abdominal pain; Epigastric; Additional info: Epigastric discomfort TECHNIQUE: Imaging protocol: Radiologic exam of the abdomen. Views: 2 Views. Upright and supine views. COMPARISON: CT abdomen pelvis w con* [id number] 03/29/2023 11:19 PM FINDINGS: Lungs are clear. Nonobstructive bowel gas pattern. No free air. No calcifications in the expected region of the kidneys. XR/XR acute abdomen series [id number] IMPRESSION: No acute findings.
[2023-09-27 15:40] LABS: Basophils % 0.3 %; Eosinophils # 0.1 10^3/uL (0.0-0.8); Eosinophils % 0.9 %; Hematocrit 36.4 % (36-47); Lymphocytes % 34.8 %; Mean Corpuscular HGB Conc 31.3 g/dL (30-55); Mean Corpuscular Hemoglobin 26.7 pg (27-33); Mean Corpuscular Volume 85.2 fl (85-98); Mean Platelet Volume 9.8 fL (7.4-10.4); Monocytes # 0.4 10^3/uL (0.2-0.9); Monocytes % 5.1 %; Neutrophils # 5.03 10^3/uL (1.8-7.7); Neutrophils % 58.8 %; Nucleated Red Blood Cells % 0 %; Platelet Count 299 10^3/cmm (157-399); Red Blood Count 4.27 10^6/uL (3.85-5.65); Red Cell Distribution Width 16.4 % (12.1-15.1); White Blood Count 8.58 10^3/uL (3.29-11.43)
[2023-09-27 15:50] LABS: HCG, Serum Qual Negative (Negative)
[2023-09-27 15:57] LABS: Alanine Aminotransferase 19 U/L (0-33); Albumin Level 3.8 g/dL (3.5-5.2); Alkaline Phosphatase 97 U/L (35-105); Anion Gap 17.4 (5-19); Aspartate Amino Transferase 15 U/L (0-32); Blood Urea Nitrogen 6 mg/dL (6-20); Calcium 9.5 mg/dL (8.5-10.5); Carbon Dioxide 19 mmol/L (22-29); Chloride 104 mmol/L (98-107); Globulin 3.6 g/dL (1.3-4.6); Glucose 86 mg/dL (65-115); Lipase 48 U/L (13-60); Osmolality Calculated 281 mOsm/kg (285-295); Potassium 3.4 mmol/L (3.5-5.1); Sodium 137 mmol/L (136-145); Total Bilirubin 0.2 mg/dL (0.15-1.2); Total Protein 7.4 g/dL (6.6-8.7)
[2023-09-27] MEDS: sodium chloride 0.9% 1,000 ML 999 ML IV (16:19)
[2023-09-27 16:21] LABS: Add Urine Microscopic? NO; Charge for UA Resulting for Rev
[2023-09-27] MEDS: albuterol 8 gm MDI 2 PUFF INHALATION (16:22)
[2023-09-27] MEDS: ondansetron 2 mg/ML SDV 2 mL 4 MG IVP (16:22)
[2023-09-27] MEDS: famotidine 20 mg/2 mL INJ 40 MG IVP (16:24)
[2023-09-27] MEDS: LORazepam 2 mg/mL INJ 1 mL IVP (16:26)
[2023-09-27 16:29] VITALS: PULSE 61; RESP 18; O2SAT 100
[2023-09-27 16:36] LABS: Bilirubin Urine Neg (Negative); Blood Urine Neg (Negative); Glucose Urine UA Norm (Normal); Ketones Urine Negative (Negative); Leukocyte Esterase Urine Negative (Negative); Nitrate Urine Negative (Negative); Protein Urine Neg (Negative); Urine Appearance Clear (CLEAR); Urine Color Yellow (Yellow); Urobilinogen Urine Norm (Negative); pH Urine 7 (5-7)
[2023-09-27 18:06] VITALS: BP 139/86; O2SAT 100
[2023-09-28 20:49] LABS: Chlamydia Trachomatis RNA TMA NOT DETECTED (NOT DETECTED); Neisseria Gonorrhoeae RNA, TMA NOT DETECTED (NOT DETECTED); Trichomonas Vaginalis RNA NOT DETECTED (NOT DETECTED)
--- NOTE | 2023-10-02 09:22 | DCPLANNER ---
Sent message to PCP for follow up 1 week out-
== END 2023-09-27 17:58 | disposition home or self-care (01) ==
PROVIDERS: Emergency Provider Nurse Practitioner Family; PCP Family Medicine
DX: K29.70 Gastritis, unspecified, without bleeding (principal); R10.11 Right upper quadrant pain; F41.9 Anxiety disorder, unspecified; F17.210 Nicotine dependence, cigarettes, uncomplicated
CPT/HCPCS: 36415; 74022; 80053; 81003; 83690; 84703; 85025; 87491; 87591; 94640; 96374; 96375; 99284; J2060; J2405; J3490; J3535; J7030

== ENCOUNTER → 2023-10-09 14:30 | Outpatient (BNVA) | payer OTHER, SELFPAY | PROVIDERS: PCP Family Medicine; Visit Provider Nurse Practitioner Psychiatric/Mental Health | DX: Z79.899 Other long term (current) drug therapy (principal) | CPT/HCPCS: 80053; 80061; 83036 ==

== ENCOUNTER → 2024-03-20 11:25 | Outpatient (BNVA) | payer SELFPAY | PROVIDERS: PCP Nurse Practitioner Family; Visit Provider Nurse Practitioner Family | DX: Z72.51 High risk heterosexual behavior (principal); B02.9 Zoster without complications; L81.8 Other specified disorders of pigmentation | CPT/HCPCS: 80074; 86592; 87491; 87591; 87806 ==

== ENCOUNTER 2024-04-23 01:38 | Emergency (ER) | payer MEDICAID, SELFPAY ==
[2024-04-18 11:58] VITALS: BP 122/80; BMI 34.6
[2024-04-23 01:38] VITALS: BP 122/96; PULSE 78; RESP 19; TEMP 36.7; O2SAT 96; BMI 31.8
--- NOTE | 2024-04-23 01:41 | XRR_ITS ---
PROCEDURE INFORMATION: Exam: XR Chest Exam date and time: 04/23/2024 1:54 AM Age: 23 years old Clinical indication: Other: Seizure TECHNIQUE: Imaging protocol: Radiologic exam of the chest. Views: 1 view. COMPARISON: CR XR chest 1V portable [id number] 02/13/2022 6:37 PM FINDINGS: Lungs: Unremarkable. No consolidation. Pleural spaces: Unremarkable. No pleural effusion. No pneumothorax. Heart/Mediastinum: Unremarkable. No cardiomegaly. Bones/joints: Unremarkable. XR/XR chest 1V portable [id number] IMPRESSION: No acute findings.
--- NOTE | 2024-04-23 01:41 | ECG_ITS ---
[facility] Test Date: 2024-04-23 Pat Name: Penelope Henson Department: Room: Gender: Female Curtain Mender: : 2000 Requested By: Bishop Pelayo Order Number: [id number] Lee MD: Bennie Stephens M.D. Measurements Intervals [place] Rate: 81 P: 60 CA: 136 QRS: 63 QRSD: 90 T: 62 QT: 374 QTc: 435 Interpretive Statements SINUS RHYTHM No previous ECG available for comparison Electronically Signed On 04-23-2024 17:21:09 CDT by Bennie Stephens M.D. [id number]
[2024-04-23 01:52] LABS: Basophils # 0.1 10^3/uL (0.0-0.1); Basophils % 0.5 %; Eosinophils # 0.2 10^3/uL (0.0-0.8); Eosinophils % 2.2 %; Hematocrit 37.4 % (36-47); Lymphocytes # 4.1 10^3/uL (0.8-4.8); Lymphocytes % 39.7 %; Mean Corpuscular HGB Conc 32.9 g/dL (30-55); Mean Platelet Volume 9.3 fL (7.4-10.4); Monocytes # 0.7 10^3/uL (0.2-0.9); Monocytes % 6.9 %; Neutrophils # 5.23 10^3/uL (1.8-7.7); Neutrophils % 50.5 %; Nucleated Red Blood Cells % 0 %; Platelet Count 292 10^3/cmm (157-399); Red Blood Count 4.56 10^6/uL (3.85-5.65); Red Cell Distribution Width 17.6 % (12.1-15.1); White Blood Count 10.37 10^3/uL (3.29-11.43)
[2024-04-23] MEDS: sodium chloride 0.9% 1,000 ML 999 ML IV (01:53)
[2024-04-23 01:58] LABS: Add Urine Microscopic? NO; Charge for UA Resulting for Rev
[2024-04-23 02:01] LABS: Bilirubin Urine Neg (Negative); Blood Urine Neg (Negative); Glucose Urine UA Norm (Normal); Ketones Urine Negative (Negative); Leukocyte Esterase Urine Negative (Negative); Nitrate Urine Negative (Negative); Protein Urine Neg (Negative); Urine Appearance Clear (CLEAR); Urine Color Yellow (Yellow); Urobilinogen Urine Neg (Negative); pH Urine 6 (5-7)
[2024-04-23 02:09] LABS: Amphetamines Screen Urine Negative (Negative); Barbiturates Screen Urine Negative (Negative); Benzodiazepines Screen Urine Negative (Negative); Cocaine Screen Urine Negative (Negative); Opiate Screen Urine Negative (Negative); PCP Screen Urine Negative (Negative); THC Screen Urine Positive (Negative)
--- NOTE | 2024-04-23 02:09 | ED_ITS ---
HPI - Seizure 2 General: Chief Complaint: Seizure Stated Complaint: SEIZURE Time Seen by Provider: 04/23/24 01:41 History of Present Illness: HPI Narrative: Patient is brought in by EMS with reports of a seizure. 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 Patient says she takes all of her medicine. Per medicines list she is on Lexapro, hydroxyzine, Seroquel. Patient does admit to drinking alcohol tonight and using marijuana. Patient is alert oriented and coherent at this time patient does not appear to be postictal. Patient said this was her normal stress-induced seizure and has no complaints at this time. Seizure History: Yes Place: Home Review of Systems 2 General: Reports: 10 or more systems reviewed and unremarkable except in HPI and below PFSH ED 2 PFSH: Medical History Normal pelvic exam Nicotine dependence, cigarettes, uncomplicated Cellulitis Marijuana use, episodic Generalized anxiety disorder Chronic post-traumatic stress disorder Cyclothymic disorder with anxious distress Psychiatric care Surgical History History of cholecystectomy Previous section Family History Mother Cancer Reportedly Ovarian cancer in her late 20's resulting in a hysterectomy Unknown Cancer unknown family member, breast cancer Social History Smoking and tobacco/nicotine status: current every day tobacco/nicotine user cigarettes Packs smoked per day: 0.5 Years cigarettes smoked: 8 Quit status (tobacco/nicotine): not considering quitting Second hand smoke exposure: Yes Alcohol intake: current Alcohol intake frequency: holidays/special occasions only Alcohol type: beer Substance/Drug Use: current Substance/Drug use frequency: daily Adopted: No Caregiver/support person: No Lives independently: Yes Household members: other Details: Grandparents Housing: House Marital status: Life Partner Number of children: 1 Number of grandchildren: 0 Highest education level completed: High School Graduate service: No Current occupational status: unemployed Pets and animals: Yes Pets & animals: cat(s), dog(s) and farm animals Farm Animals: chicken/turkey/other poultry Leisure activites: art, music, hunting, fishing and reading Sexually active: Yes How many partners: 1 Do you think of yourself as: pansexual Current gender identity: Female Shirley/Church: None Special shirley needs: No Agree to transfusion: Yes Female Reproductive History: Para: 1 Spontaneous abortions: Yes Physical Exam 2 Const: COMMON NORMALS: no acute distress, average body habitus, patient oriented x3, no limitations, healthy appearing, alert and well nourished HENMT: COMMON NORMALS: normocephalic, atraumatic, hearing grossly normal bilaterally, external ears normal, Normal external nose present and moist oral mucous membranes HEAD & SCALP: normocephalic and atraumatic NOSE: Normal external nose present EXTERNAL EAR: Yes external ears normal Eye: COMMON NORMALS: Equal, round and reactive pupils present, EOMs intact bilaterally, conjunctivae normal and no scleral icterus CONJUNCTIVA: Yes conjunctivae normal PUPIL: Yes Equal, round and reactive pupils present Neck/C-Spine: COMMON NORMALS: no JVD Chest: COMMONS NORMALS: normal inspection of the chest and normal palpation of entire chest wall Resp: COMMON NORMALS: normal respiratory effort, No retractions, No use of accessory muscles and clear to auscultation bilaterally AUSCULTATION: clear to auscultation bilaterally Cardio: COMMON NORMALS: no JVD, regular rate, regular rhythm, S1 normal heart sound present, S2 normal heart sound present, No gallops present (Cardio), No clicks present (Cardio), No murmurs present (Cardio) and No rub (Cardio) R ATE: regular rate RHYTHM: regular rhythm HEART SOUNDS: S1 normal heart sound present and S2 normal heart sound present GI: COMMON NORMALS: Normal to inspection, nondistended, normoactive bowel sounds present, Soft to palpation, non-tender, No hepatosplenomegaly present and no masses PALPATION: Yes Soft to palpation and Yes No hepatosplenomegaly present Neuro: COMMON NORMALS: patient oriented x3 SENSORIUM/ORIENTATION: Yes alert Course 2 Vital Signs: Vital signs: Vital Signs Temperature 98.1 F 04/23/24 01:38 Pulse Rate 86 04/23/24 02:41 Respiratory Rate 18 04/23/24 02:41 Blood Pressure 147/86 04/23/24 02:41 Pulse Oximetry 99 04/23/24 02:41 Oxygen Delivery Me thod Room Air 04/23/24 02:41 MDM - Seizure MDM Narrative Medical decision making narrative: Patient had lab work that included CBC CMP prolactin CPK urine urine drug screen, all of which was essentially benign, prolactin was very slightly elevated 23.41, urine drug screen showed positive for marijuana. Chest x-ray was preliminary read by myself is negative. Patient will be discharged home. Patient is to follow-up with her PCP and/or neurologist within the next 7 days for further evaluation and treatment. Differential Diagnosis Seizure Differential Diagnosis: Likely generalized seizure; Unlikely intractable seizure disorder, febrile convulsion, focal seizure, new onset seizure, epileptic seizure or status epilepticus Medical Records Attestation: I reviewed the patient's medical records. Lab Data Attestation: I reviewed the patient's lab results. 04/23/24 01:45 04/23/24 01:45 Labs: Laboratory Results WBC 10.37 10^3/uL (3.29-11.43) 04/23/24 01:45 RBC 4.56 10^6/uL (3.85-5.65) 04/23/24 01:45 Hgb 12.30 g/dL (11.27-16.99) 04/23/24 01:45 Hct 37.4 % (36-47) 04/23/24 01:45 MCV 82.0 fl (85-98) L 04/23/24 01:45 MCH 27.0 pg (27-33) 04/23/24 01:45 MCHC 32.9 g/dL (30-55) 04/23/24 01:45 RDW 17.6 % (12.1-15.1) H 04/23/24 01:45 Plt Count 292 10^3/cmm (157-399) 04/23/24 01:45 MPV 9.3 fL (7.4-10.4) 04/23/24 01:45 Neut % (Auto) 50.5 % 04/23/24 01:45 Lymph % (Auto) 39.7 % 04/23/24 01:45 [place] % (Auto) 6.9 % 04/23/24 01:45 Eos % (Auto) 2.2 % 04/23/24 01:45 Baso % (Auto) 0.5 % 04/23/24 01:45 Neut # (Auto) 5.23 10^3/uL (1.8-7.7) 04/23/24 01:45 Lymph # (Auto) 4.1 10^3/uL (0.8-4.8) 04/23/24 01:45 [place] # (Auto) 0.7 10^3/uL (0.2-0.9) 04/23/24 01:45 Eos # (Auto) 0.2 10^3/uL (0.0-0.8) 04/23/24 01:45 Baso # (Auto) 0.1 10^3/uL (0.0-0.1) 04/23/24 01:45 Nucleated RBC % (auto) 0 % 04/23/24 01:45 Nucleated RBCs # 0.0 /100WBC 04/23/24 01:45 Sodium 142 mmol/L (136-145) 04/23/24 01:45 Potassium 3.6 mmol/L (3.5-5.1) 04/23/24 01:45 Chloride 105 mmol/L (98-107) 04/23/24 01:45 Carbon Dioxide 21 mmol/L (22-29) L 04/23/24 01:45 Anion Gap 19.6 (5-19) H 04/23/24 01:45 BUN 10 mg/dL (6-20) 04/23/24 01:45 Creatinine 0.8 mg/dL (0.5-0.9) 04/23/24 01:45 GFR Calculation 87.4 mL/min (90-130) L 04/23/24 01:45 Glucose 92 mg/dL (65-115) 04/23/24 01:45 Calculated Osmolality 293 mOsm/kg (285-295) 04/23/24 01:45 Calcium 9.2 mg/dL (8.5-10.5) 04/23/24 01:45 Magnesium 1.9 mg/dL (1.7-2.3) 04/23/24 01:45 Total Bilirubin 0.2 mg/dL (0.15-1.2) 04/23/24 01:45 AST 22 U/L (0-32) 04/23/24 01:45 ALT 26 U/L (0-33) 04/23/24 01:45 Alkaline Phosphatase 111 U/L (35-105) H 04/23/24 01:45 Creatine Kinase 106 U/L (26-192) 04/23/24 01:45 Total Protein 7.4 g/dL (6.6-8.7) 04/23/24 01:45 Albumin 4.0 g/dL (3.5-5.2) 04/23/24 01:45 Globulin 3.4 g/dL (1.3-4.6) 04/23/24 01:45 Prolactin 23.41 ng/mL (4.8-23.3) H 04/23/24 01:45 Urine Color Yellow (Yellow) 04/23/24 01:47 Urine Appearance Clear (CLEAR) 04/23/24 01:47 Urine pH 6 (5-7) 04/23/24 01:47 Ur Specific [place] 1.020 (1.005-1.030) 04/23/24 01:47 Urine Protein Neg (Negative) 04/23/24 01:47 Urine Glucose (UA) Norm (Normal) 04/23/24 01:47 Urine Ketones Negative (Negative) 04/23/24 01:47 Urine Blood Neg (Negative) 04/23/24 01:47 Urine Nitrate Negative (Negative) 04/23/24 01:47 Urine Bilirubin Neg (Negative) 04/23/24 01:47 Urine Urobilinogen Neg mg/dL (Negative) 04/23/24 01:47 Ur Leukocyte Esterase Negative (Negative) 04/23/24 01:47 Urine Opiates Screen Negative ng/mL (Negative) 04/23/24 01:47 Ur Barbiturates Screen Negative ng/mL (Negative) 04/23/24 01:47 Ur Phencyclidine Scrn Negative ng/mL (Negative) 04/23/24 01:47 Ur Amphetamines Screen Negative ng/mL (Negative) 04/23/24 01:47 U Benzodiazepines Scrn Negative ng/mL (Negative) 04/23/24 01:47 Urine Cocaine Screen Negative ng/mL (Negative) 04/23/24 01:47 U Marijuana (THC) Screen Positive ng/mL (Negative) H 04/23/24 01:47 All radiology interpretation(s) finalized by discharge EKG Data EKG 1: Attestation: I personally reviewed and interpreted this EKG as follows: EKG interpretation date: 04/23/24 EKG interpretation time: 01:45 Interpretation: Ventricular rate 81 bpm, NV interval 136, QRS duration 90, QTc of 411, sinus rhythm, Discharge Plan Discharge Patient Disposition: Home Clinical Impression: Generalized seizure Condition: Stable Prescriptions: No Action escitalopram oxalate 10 mg tablet 10 mg PO .morning Qty: 30 6RF Rx Instructions: Take one tablet every morning hydroxyzine HCl 50 mg tablet 50 mg PO TID PRN (Reason: anxiety) Qty: 90 3RF Rx Instructions: May take one tablet three times per day as needed for anxiety quetiapine 50 mg tablet 50 mg PO .qhs 30 Days Qty: 30 6RF Rx Instructions: Take one tablet at bedtime albuterol sulfate 90 mcg/actuation HFA aerosol inhaler 2 puff inhalation Q6H PRN mupirocin 2 % ointment 1 applic topical TID 10 Days Qty: 22 1RF Discharge Orders: Discharge ED (Routine); Ordered 04/23/24 Ordered By: Bishop Pelayo Referrals: CATHY Worrell, SQL DATABASE DEVELOPER [Primary Care Provider] - 1 week Patient Instructions: Seizures Activity Restrictions/Additional Instructions: Your evaluation in the ER that included physical exam and lab work was essentially benign. You did have THC in your urine, please follow-up with your family practice physician and/or neurologist. If your symptoms worsen please return to the ER. Coding Level of Care Code ED Cemetery Warden for Holly Del Cid
[2024-04-23 02:13] LABS: Alanine Aminotransferase 26 U/L (0-33); Alkaline Phosphatase 111 U/L (35-105); Anion Gap 19.6 (5-19); Aspartate Amino Transferase 22 U/L (0-32); Blood Urea Nitrogen 10 mg/dL (6-20); Calcium 9.2 mg/dL (8.5-10.5); Carbon Dioxide 21 mmol/L (22-29); Chloride 105 mmol/L (98-107); Creatine Phosphokinase 106 U/L (26-192); Creatinine Clr Calc Pharmacy 108.7788; Globulin 3.4 g/dL (1.3-4.6); Glomerular Filtration Rate 87.4 mL/min (90-130); Glucose 92 mg/dL (65-115); Magnesium 1.9 mg/dL (1.7-2.3); Osmolality Calculated 293 mOsm/kg (285-295); Potassium 3.6 mmol/L (3.5-5.1); Sodium 142 mmol/L (136-145); Total Bilirubin 0.2 mg/dL (0.15-1.2); Total Protein 7.4 g/dL (6.6-8.7)
[2024-04-23 02:38] LABS: Prolactin 23.41 ng/mL (4.8-23.3)
[2024-04-23 02:41] VITALS: BP 147/86; PULSE 86; RESP 18; O2SAT 99
[2024-04-23 03:07] VITALS: BP 147/70; PULSE 87; RESP 18; O2SAT 99
== END 2024-04-23 03:08 | disposition home or self-care (01) ==
PROVIDERS: Emergency Provider Emergency Medicine; PCP Nurse Practitioner Family
DX: G40.409 Other generalized epilepsy and epileptic syndromes, not intractable, without status epilepticus (principal); Z79.899 Other long term (current) drug therapy; F17.210 Nicotine dependence, cigarettes, uncomplicated
CPT/HCPCS: 71045; 80053; 80306; 81003; 82550; 83735; 84146; 85025; 93005; 99285; J7030

== ENCOUNTER 2024-05-16 11:11 | Emergency (ER) | payer MEDICAID, SELFPAY ==
[2024-04-18 11:58] VITALS: BP 122/80; BMI 34.6
[2024-05-16 11:19] VITALS: BP 136/79; PULSE 102; TEMP 37; O2SAT 99; BMI 32.8
--- NOTE | 2024-05-16 11:40 | XRR_ITS ---
PROCEDURE INFORMATION: Exam: XR Right Femur Exam date and time: 05/16/2024 12:04 PM Age: 24 years old Clinical indication: Injury or trauma; Puncture; Thigh or upper leg; Right; Foreign body involvement not specified; Patient HX: RT upper posterior thigh pain after dog bite; Possible foreign body TECHNIQUE: Imaging protocol: Radiologic exam of the right femur. Views: 2 views. COMPARISON: CT abdomen pelvis w con* [id number] 03/29/2023 11:19 PM FINDINGS: Bones/joints: Bones are unremarkable. Soft tissues: No radiodense foreign body is visible in the thigh. Vasculature: There is a small venous phlebolith medial to the knee. XR/XR femur RT min 2V* [id number] IMPRESSION: No radiodense foreign body.
--- NOTE | 2024-05-16 11:41 | W.ED.ANIMALB ---
HPI - Animal Bite General: Chief Complaint: Animal Bite Stated Complaint: left leg dog bite, bleeding Time Seen by Provider: 05/16/24 11:21 History of Present Illness: Patient comes in with a dog bite. States that they were out on a job when a dog came up behind her and bit her on the back of the right thigh. States they do not know the dental hygienist mobile coordinator or the dog. States she is not current on her tetanus. Review of Systems General: Reports: 10 or more systems reviewed and unremarkable except in HPI and below PFSH ED PFSH: Medical History Normal pelvic exam Nicotine dependence, cigarettes, uncomplicated Cellulitis Marijuana use, episodic Generalized anxiety disorder Chronic post-traumatic stress disorder Cyclothymic disorder with anxious distress Psychiatric care Surgical History History of cholecystectomy Previous section Family History Mother Cancer Reportedly Ovarian cancer in her late 20's resulting in a hysterectomy Unknown Cancer unknown family member, breast cancer Social History Smoking and tobacco/nicotine status: current every day tobacco/nicotine user cigarettes Packs smoked per day: 0.5 Years cigarettes smoked: 8 Quit status (tobacco/nicotine): not considering quitting Second hand smoke exposure: Yes Alcohol intake: current Alcohol intake frequency: holidays/special occasions only Alcohol type: beer Substance/Drug Use: current Substance/Drug use frequency: daily Adopted: No Caregiver/support person: No Lives independently: Yes Household members: other Details: Grandparents Housing: House Marital status: Life Partner Number of children: 1 Number of grandchildren: 0 Highest education level completed: High School Graduate service: No Current occupational status: unemployed Pets and animals: Yes Pets & animals: cat(s), dog(s) and farm animals Farm Animals: chicken/turkey/other poultry Leisure activites: art, music, hunting, fishing and reading Sexually active: Yes How many partners: 1 Do you think of yourself as: pansexual Current gender identity: Female Shirley/Tenriism: None Special shirley needs: No Agree to transfusion: Yes Female Reproductive History: Para: 1 Spontaneous abortions: Yes Physical Exam Const: COMMON NORMALS: no acute distress, patient oriented x3, healthy appearing and alert HENMT: COMMON NORMALS: normocephalic and atraumatic HEAD & SCALP: normocephalic and atraumatic Eye: COMMON NORMALS: Equal, round and reactive pupils present PUPIL: Yes Equal, round and reactive pupils present Neck/C-Spine: COMMON NORMALS: full ROM and supple Resp: COMMON NORMALS: normal respiratory effort Extremity: COMMON NORMALS: full ROM NARRATIVE EXTREMITY EXAM: Bruising to the posterior proximal right thigh with 1 puncture wound Neuro: COMMON NORMALS: patient oriented x3 SENSORIUM/ORIENTATION: Yes alert Psych: COMMON NORMALS: mental status grossly normal and cooperative Course Vital Signs: Vital signs: Vital Signs Temperature 98.6 F 05/16/24 11:19 Pulse Rate 102 H 05/16/24 11:19 Blood Pressure 136/79 05/16/24 11:19 Pulse Oximetry 99 05/16/24 11:19 Oxygen Delivery Me thod Room Air 05/16/24 11:19 MDM - Animal Bite Medical Decision Making Differential diagnosis: Dog bite, foreign body wound, rabies exposure Patient comes in with a dog bite. States that they were out on a job when a dog came up behind her and bit her on the back of the right thigh. States they do not know the dental hygienist mobile coordinator or the dog. States she is not current on her tetanus. On physical exam she has bruising to her proximal posterior right thigh with 1 puncture wound. Will check x-ray to rule out foreign body as she states the dog is old and missing teeth. Will give her a tetanus shot, clean and dress the wound, and reassess. On reassessment talk to the patient about the x-ray results. Her x-ray shows no visible foreign body. Will start her on antibiotics. We discussed symptoms that should prompt immediate return to the emergency department. The patient states that as soon as they leave here they are going to get the address for the police who will go quarantine the dog. The patient does not want rabies shots at this time. She would like to try to get the dog first. Will discharge at this time with precautions to return for worsening or changing symptoms. Lab Data Radiology Impressions Femur X-Ray 05/16/24 11:40 IMPRESSION: No radiodense foreign body. XR interpretation done by ED provider, pending radiology final review Discharge Plan Discharge Patient Disposition: Home Clinical Impression: Dog bite Condition: Stable Prescriptions: New amoxicillin-pot clavulanate 875-125 mg tablet 1 tab PO BID Qty: 20 0RF No Action hydroxyzine HCl 50 mg tablet 50 mg PO TID PRN (Reason: anxiety) Qty: 90 3RF albuterol sulfate 90 mcg/actuation HFA aerosol inhaler 2 puff inhalation Q6H PRN (Reason: Shortness Of Breath) mupirocin 2 % ointment 1 applic topical TID PRN (Reason: Skin Irritation) escitalopram oxalate 10 mg tablet 10 mg PO QAM quetiapine 50 mg tablet 50 mg PO BEDTIME Discharge Orders: Discharge ED (Routine); Ordered 05/16/24 Ordered By: Jonny Alcaraz Referrals: ACTHY Worrell, KNITTING TESTER [Primary Care Provider] - Patient Instructions: Pain Management Coding Level of Care Code ED [employer] Police for Holly Del Cid
[2024-05-16] MEDS: ibuprofen 600 mg Tablet PO (11:57)
[2024-05-16] MEDS: tetanus-diphtheria tox (adult) 0.5 mL SDV IM (11:57)
[2024-05-16 13:19] VITALS: BP 118/80; PULSE 64; O2SAT 99
[2024-05-16 13:23] VITALS: BP 118/80; PULSE 64; O2SAT 99
== END 2024-05-16 13:23 | disposition home or self-care (01) ==
PROVIDERS: Emergency Provider Emergency Medicine; PCP Nurse Practitioner Family
DX: S81.852A Open bite, left lower leg, initial encounter (principal); W54.0XXA Bitten by dog, initial encounter; Z79.899 Other long term (current) drug therapy; F17.200 Nicotine dependence, unspecified, uncomplicated
CPT/HCPCS: 73552; 90714; 99283

== ENCOUNTER 2024-06-20 13:01 | Emergency (ER) | payer MEDICAID, SELFPAY ==
[2024-04-18 11:58] VITALS: BP 122/80; BMI 34.6
[2024-06-20 13:04] VITALS: BP 128/86; PULSE 78; RESP 16; TEMP 36.9; O2SAT 99; BMI 34.2
--- NOTE | 2024-06-20 13:34 | CT_ITS ---
WS: [id number] CT ABDOMEN AND PELVIS WITH CONTRAST HISTORY: abd pain TECHNIQUE: Imaging performed of the abdomen and pelvis with IV contrast. Single phase imaging of the abdomen. Coronal and sagittal reformats are submitted. All CT scans at [facility] use at last st one of these dose optimization techniques: automated exposure control; mA and/or kV adjustment per patient size (includes targeted exams where dose is matched to clinical indication); or iterative re construction. IV CONTRAST: Omnipaque 350; 100 mL IV. Oral contrast: No DLP: 971.08 mGy.cm COMPARISON: 03/29/2023 Lower thorax: Lung bases are clear. Heart is normal size. No hiatal hernia. Liver/biliary system: Normal size with no intrahepatic dilatation. Gallbladder: Prior cholecystectomy. Pancreas: Normal size pancreas and pancreatic duct. No adjacent inflammation. Spleen: Normal size spleen. No mass or infarct. Adrenal glands: Normal. Right kidney: Normal. Left kidney: Normal. Aorta: Normal. Lymphadenopathy: None. Free fluid: There is a small amount of free fluid in the pelvis. GI tract: Unremarkable. Abdominal wall: Unremarkable abdominal wall. No hernia. Pelvis: Small amount of free fluid in the pelvis. Uterus is anteverted. Both ovaries are identified a nd contain small follicles. Bones: Unremarkable. CT/CT abdomen pelvis w con* [id number] IMPRESSION: 1. Small amount of free fluid in the pelvis is physiologic in amount. May be f rom a ruptured ovarian cyst. 2. No acute abdominal or pelvic abnormalities are identified.
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
[2024-06-20 14:08] VITALS: RESP 15
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
[2024-06-20 14:24] LABS: Basophils % 0.4 %; Eosinophils # 0.2 10^3/uL (0.0-0.8); Eosinophils % 2.2 %; Hematocrit 36.3 % (36-47); Lymphocytes # 3.6 10^3/uL (0.8-4.8); Lymphocytes % 40.5 %; Mean Corpuscular HGB Conc 32.8 g/dL (30-55); Mean Corpuscular Hemoglobin 28.1 pg (27-33); Mean Corpuscular Volume 85.8 fl (85-98); Mean Platelet Volume 9.2 fL (7.4-10.4); Monocytes # 0.7 10^3/uL (0.2-0.9); Monocytes % 7.6 %; Neutrophils % 49.1 %; Nucleated Red Blood Cells % 0 %; Platelet Count 300 10^3/cmm (157-399); Red Blood Count 4.23 10^6/uL (3.85-5.65); Red Cell Distribution Width 15.9 % (12.1-15.1); White Blood Count 8.98 10^3/uL (3.29-11.43)
[2024-06-20] MEDS: azithromycin 250 mg Tablet 1000 MG PO (14:26)
[2024-06-20] MEDS: metroNIDAZOLE 500 MG Tablet 2000 MG PO (14:26)
[2024-06-20] MEDS: cefTRIAXone 1,000 MG in water for injection-sterile 2.1 ML 1 MG IM (14:28)
[2024-06-20 14:39] LABS: HCG, Serum Qual Negative (Negative)
[2024-06-20 14:44] LABS: Alanine Aminotransferase 25 U/L (0-33); Albumin Level 4.2 g/dL (3.5-5.2); Alkaline Phosphatase 104 U/L (35-105); Aspartate Amino Transferase 22 U/L (0-32); Blood Urea Nitrogen 8 mg/dL (6-20); Calcium 9.4 mg/dL (8.5-10.5); Carbon Dioxide 25 mmol/L (22-29); Chloride 106 mmol/L (98-107); Creatinine Clr Calc Pharmacy 111.8004; Globulin 3.5 g/dL (1.3-4.6); Glomerular Filtration Rate 86.7 mL/min (90-130); Glucose 79 mg/dL (65-115); Lipase 34 U/L (13-60); Osmolality Calculated 289 mOsm/kg (285-295); Sodium 141 mmol/L (136-145); Total Bilirubin 0.2 mg/dL (0.15-1.2); Total Protein 7.7 g/dL (6.6-8.7)
[2024-06-20 15:07] LABS: Charge for UA Resulting for Rev
[2024-06-20] MEDS: iohexol 350 mg/mL 500 mL Btl (per mL) IV (15:09)
[2024-06-20 15:14] LABS: Bilirubin Urine Negative (Negative); Blood Urine Negative (Negative); Glucose Urine UA Negative (Normal); Ketones Urine Negative (Negative); Leukocyte Esterase Urine 1+ (Negative); Nitrate Urine Negative (Negative); Protein Urine Trace (Negative); Specific Gravity, Urine 1.028 (1.005-1.030); Urine Appearance Cloudy (CLEAR); Urine Color Yellow (Yellow)
[2024-06-20 15:16] LABS: Bacteria Urine 2+ /hpf; Hyaline Casts Urine 1.65 /lpf; RBC Urine 0-2 /hpf (0-2)
[2024-06-20 15:37] LABS: Add Urine Culture? Yes
[2024-06-20 16:09] VITALS: RESP 15
== END 2024-06-20 16:10 | disposition home or self-care (01) ==
PROVIDERS: Emergency Provider Family Medicine; PCP Nurse Practitioner Family
DX: N30.90 Cystitis, unspecified without hematuria (principal); N83.209 Unspecified ovarian cyst, unspecified side; T76.21XA Adult sexual abuse, suspected, initial encounter; F17.210 Nicotine dependence, cigarettes, uncomplicated; Y07.9 Unspecified perpetrator of maltreatment and neglect
CPT/HCPCS: 36415; 74177; 80053; 81003; 81015; 83690; 84703; 85025; 87086; 96372; 99285; J0696; Q0144; Q9967

== ENCOUNTER 2024-06-30 19:25 | Emergency (ER) | payer MEDICAID, SELFPAY ==
[2024-04-18 11:58] VITALS: BP 122/80; BMI 34.6
[2024-06-30 20:01] LABS: Basophils # 0.1 10^3/uL (0.0-0.1); Basophils % 0.6 %; Eosinophils # 0.3 10^3/uL (0.0-0.8); Eosinophils % 2.9 %; Hematocrit 40.7 % (36-47); Lymphocytes # 4.2 10^3/uL (0.8-4.8); Lymphocytes % 40.4 %; Mean Corpuscular HGB Conc 32.7 g/dL (30-55); Mean Corpuscular Hemoglobin 27.5 pg (27-33); Mean Corpuscular Volume 84.1 fl (85-98); Mean Platelet Volume 9.4 fL (7.4-10.4); Monocytes # 0.8 10^3/uL (0.2-0.9); Monocytes % 7.2 %; Neutrophils # 5.06 10^3/uL (1.8-7.7); Neutrophils % 48.7 %; Nucleated Red Blood Cells % 0 %; Platelet Count 315 10^3/cmm (157-399); Red Blood Count 4.84 10^6/uL (3.85-5.65); Red Cell Distribution Width 15.9 % (12.1-15.1); White Blood Count 10.39 10^3/uL (3.29-11.43)
[2024-06-30 20:02] VITALS: BP 137/100; PULSE 93; RESP 20; TEMP 36.8; O2SAT 96; BMI 33.6
--- NOTE | 2024-06-30 20:07 | ED_ITS ---
HPI - Abdominal Pain 2 General: Chief Complaint: Abdominal Pain Stated Complaint: ABD Pain Time Seen by Provider: 06/30/24 20:03 History of Present Illness: 24-year-old female comes in today with c omplaints of epigastric pain. Patient reports pain been on and off for about 3 to 4 weeks ago. Patient recently been treated for a cystitis. Patient reported that she completed the antibiotics. Patient also been placed on some diclofenac at that time for her discomfort. Patient appears in moderate to severe pain. Patient is tearful on exam. Patient endorses use of tobacco, THC. Patient denies methamphetamines. Patient reports being alcohol free for 3 weeks. Patient takes routine medications for depression and mood disorder. Associated Symptoms: Reports nausea Related Data Home Medications Medication Instructions Recorded Confirmed albuterol sulfate 90 mcg/actuation 2 puff inhalation Q6H PRN 04/09/24 05/23/24 aerosol inhaler Shortness Of Breath escitalopram oxalate 10 mg tablet 10 mg PO QAM 05/16/24 05/23/24 mupirocin 2 % topical ointment 1 applic topical TID PRN Skin 05/16/24 05/23/24 Irritation quetiapine 50 mg tablet 50 mg PO BEDTIME 05/16/24 05/23/24 Previous Rx's Medication Instructions Recorded hydroxyzine HCl 50 mg tablet 50 mg PO TID PRN anxiety #90 tabs 02/08/24 amoxicillin 875 mg-potassium 1 tab PO BID #20 tabs 05/16/24 clavulanate 125 mg tablet diclofenac sodium 75 mg 75 mg PO Q12H PRN pain #20 tabs 06/20/24 tablet,delayed release dicyclomine 20 mg tablet 20 mg PO QID PRN abdominal pain 06/30/24 #20 tabs pantoprazole 40 mg tablet,delayed 40 mg PO DAILY 4 weeks #30 tabs 06/30/24 release Allergies Allergy/AdvReac Type Severity Reaction Status Date / Time sushi Allergy Mild ALGY-Hives Uncoded 06/30/24 20:01 poison malorie Allergy ALGY-Rash Uncoded 06/30/24 20:01 poison oak Allergy ALGY-Rash Uncoded 06/30/24 20:01 Review of Systems 2 General: Reports: 10 or more systems reviewed and unremarkable except in HPI and below GI: Reports: abdominal pain and nausea PFSH ED 2 PFSH: Medical History Normal pelvic exam Nicotine dependence, cigarettes, uncomplicated Cellulitis Marijuana use, episodic Generalized anxiety disorder Chronic post-traumatic stress disorder Cyclothymic disorder with anxious distress Psychiatric care Surgical History History of cholecystectomy Previous section Family History Mother Cancer Reportedly Ovarian cancer in her late 20's resulting in a hysterectomy Unknown Cancer unknown family member, breast cancer Social History Smoking and tobacco/nicotine status: current every day tobacco/nicotine user cigarettes Packs smoked per day: 0.5 Years cigarettes smoked: 8 Quit status (tobacco/nicotine): not considering quitting Second hand smoke exposure: Yes Alcohol intake: current Alcohol intake frequency: holidays/special occasions only Alcohol type: beer Substance/Drug Use: current Substance/Drug use frequency: daily Adopted: No Caregiver/support person: No Lives independently: Yes Household members: other Details: Grandparents Housing: House Marital status: Life Partner Number of children: 1 Number of grandchildren: 0 Highest education level completed: High School Graduate service: No Current occupational status: unemployed Pets and animals: Yes Pets & animals: cat(s), dog(s) and farm animals Farm Animals: chicken/turkey/other poultry Leisure activites: art, music, hunting, fishing and reading Sexually active: Yes How many partners: 1 Do you think of yourself as: pansexual Current gender identity: Female Shirley/Sikh: None Special shirley needs: No Agree to transfusion: Yes Female Reproductive History: Para: 1 Spontaneous abortions: Yes Physical Exam 2 Const: COMMON NORMALS: alert HENMT: COMMON NORMALS: normocephalic HEAD & SCALP: normocephalic THROAT: posterior oropharynx normal Neck/C-Spine: COMMON NORMALS: full ROM Resp: COMMON NORMALS: normal respiratory effort and clear to auscultation bilaterally AUSCULTATION: clear to auscultation bilaterally Cardio: COMMON NORMALS: regular rate and regular rhythm RATE: regular rate RHYTHM: regular rhythm GI: COMMON NORMALS: Soft to palpation PALPATION: Yes Soft to palpation and Yes Tenderness to palpation present (GI) : COMMON NORMALS: Yes no CVA tenderness BLADDER/KIDNEY EXAM: Yes no CVA tenderness Back/Pelvis: COMMON NORMALS: no CVA tenderness and thoracic and lumbar spine normal to inspection Extremity: COMMON NORMALS: normal to inspection Neuro: SENSORIUM/ORIENTATION: Yes alert Skin: COMMON NORMALS: turgor normal GENERAL SKIN EXAM: turgor normal Course 2 Vital Signs: Vital signs: Vital Signs Temperature 98.2 F 06/30/24 22:25 Pulse Rate 80 06/30/24 22:25 Respiratory Rate 18 06/30/24 22:25 Blood Pressure 137/100 06/30/24 22:25 Pulse Oximetry 99 06/30/24 22:25 Oxygen Delivery Me thod Room Air 06/30/24 21:48 MDM - Abdominal Pain Medical Decision Making 24-year-old female comes in today for complaints of abdominal pain. Patient appears nontoxic. Patient appears no acute distress. Respirations are even lungs are clear to auscultation. Skin is warm and dry. Abdomen soft with some midepigastric tenderness. Differential diagnosis includes but not limited to gastritis, GERD, pancreatitis, enterocolitis, UTI, malingering. Reviewed CT from last visit that showed no significant abnormalities. CBC and CMP were unremarkable. Urinalysis was clean. Patient was treated for pain with 1 L of IV fluids, Reglan, diphenhydramine, and fentanyl. Patient most likely has some reflux or gastritis. Recommended follow-up for further evaluation and management of the pain. Patient be started on some dicyclomine and some pantoprazole. Patient reports understanding agreed to plan. Lab Data 06/30/24 19:51 06/30/24 19:51 Labs/Radiology: Laboratory Results WBC 10.39 10^3/uL (3.29-11.43) 06/30/24 19:51 RBC 4.84 10^6/uL (3.85-5.65) 06/30/24 19:51 Hgb 13.30 g/dL (11.27-16.99) 06/30/24 19:51 Hct 40.7 % (36-47) 06/30/24 19:51 MCV 84.1 fl (85-98) L 06/30/24 19:51 MCH 27.5 pg (27-33) 06/30/24 19:51 MCHC 32.7 g/dL (30-55) 06/30/24 19:51 RDW 15.9 % (12.1-15.1) H 06/30/24 19:51 Plt Count 315 10^3/cmm (157-399) 06/30/24 19:51 MPV 9.4 fL (7.4-10.4) 06/30/24 19:51 Neut % (Auto) 48.7 % 06/30/24 19:51 Lymph % (Auto) 40.4 % 06/30/24 19:51 [place] % (Auto) 7.2 % 06/30/24 19:51 Eos % (Auto) 2.9 % 06/30/24 19:51 Baso % (Auto) 0.6 % 06/30/24 19:51 Neut # (Auto) 5.06 10^3/uL (1.8-7.7) 06/30/24 19:51 Lymph # (Auto) 4.2 10^3/uL (0.8-4.8) 06/30/24 19:51 [place] # (Auto) 0.8 10^3/uL (0.2-0.9) 06/30/24 19:51 Eos # (Auto) 0.3 10^3/uL (0.0-0.8) 06/30/24 19:51 Baso # (Auto) 0.1 10^3/uL (0.0-0.1) 06/30/24 19:51 Nucleated RBC % (auto) 0 % 06/30/24 19:51 Nucleated RBCs # 0.0 /100WBC 06/30/24 19:51 Sodium 137 mmol/L (136-145) 06/30/24 19:51 Potassium 3.7 mmol/L (3.5-5.1) 06/30/24 19:51 Chloride 105 mmol/L (98-107) 06/30/24 19:51 Carbon Dioxide 17 mmol/L (22-29) L 06/30/24 19:51 Anion Gap 18.7 (5-19) 06/30/24 19:51 BUN 10 mg/dL (6-20) 06/30/24 19:51 Creatinine 0.9 mg/dL (0.5-0.9) 06/30/24 19:51 GFR Calculation 75.7 mL/min (90-130) L 06/30/24 19:51 Glucose 74 mg/dL (65-115) 06/30/24 19:51 Calculated Osmolality 282 mOsm/kg (285-295) L 06/30/24 19:51 Calcium 9.3 mg/dL (8.5-10.5) 06/30/24 19:51 Total Bilirubin 0.2 mg/dL (0.15-1.2) 06/30/24 19:51 AST 30 U/L (0-32) 06/30/24 19:51 ALT 31 U/L (0-33) 06/30/24 19:51 Alkaline Phosphatase 100 U/L (35-105) 06/30/24 19:51 Total Protein 8.1 g/dL (6.6-8.7) 06/30/24 19:51 Albumin 4.5 g/dL (3.5-5.2) 06/30/24 19:51 Globulin 3.6 g/dL (1.3-4.6) 06/30/24 19:51 Lipase 53 U/L (13-60) 06/30/24 19:51 HCG, Qual Negative (Negative) 06/30/24 19:51 Urine Color Yellow (Yellow) 06/30/24 21:20 Urine Appearance Clear (CLEAR) 06/30/24 21:20 Urine pH 5.0 (5-7) 06/30/24 21:20 Ur Specific [place] 1.019 (1.005-1.030) 06/30/24 21:20 Urine Protein Negative (Negative) 06/30/24 21:20 Urine Glucose (UA) Negative (Normal) 06/30/24 21:20 Urine Ketones Negative (Negative) 06/30/24 21:20 Urine Blood Negative (Negative) 06/30/24 21:20 Urine Nitrate Negative (Negative) 06/30/24 21:20 Urine Bilirubin Negative (Negative) 06/30/24 21:20 Urine Urobilinogen 0.2 mg/dL (Negative) 06/30/24 21:20 Ur Leukocyte Esterase Negative (Negative) 06/30/24 21:20 Urine RBC 0-2 /hpf (0-2) 06/30/24 21:20 Urine WBC 0-5 /hpf (0-5) 06/30/24 21:20 Ur Squamous Epith Cells 0-5 /hpf (0-5) 06/30/24 21:20 Amorphous Sediment Not Reportable 06/30/24 21:20 Urine Bacteria 1+ /hpf (NONE) H 06/30/24 21:20 Hyaline Casts 0.81 /lpf 06/30/24 21:20 No radiology studies performed this visit Discharge Plan Discharge Patient Disposition: Home Clinical Impression: Abdominal pain Qualifiers: Abdominal location: epigastric Qualified Code(s): R10.13 - Epigastric pain Condition: Stable Prescriptions: New dicyclomine 20 mg tablet 20 mg PO QID PRN (Reason: abdominal pain) Qty: 20 0RF pantoprazole 40 mg tablet,delayed release (DR/EC) 40 mg PO DAILY 28 Days Qty: 30 0RF No Action hydroxyzine HCl 50 mg tablet 50 mg PO TID PRN (Reason: anxiety) Qty: 90 3RF albuterol sulfate 90 mcg/actuation HFA aerosol inhaler 2 puff inhalation Q6H PRN (Reason: Shortness Of Breath) diclofenac sodium 75 mg tablet,delayed release (DR/EC) 75 mg PO Q12H PRN (Reason: pain) Qty: 20 0RF mupirocin 2 % ointment 1 applic topical TID PRN (Reason: Skin Irritation) escitalopram oxalate 10 mg tablet 10 mg PO QAM quetiapine 50 mg tablet 50 mg PO BEDTIME amoxicillin-pot clavulanate 875-125 mg tablet 1 tab PO BID Qty: 20 0RF Discharge Orders: Discharge ED (Routine); Ordered 06/30/24 Ordered By: Bry Barrett Discharge Diet: Usual diet Discharge Activity: Increase activity as tolerated Patient Instructions: Abdominal Pain (ED) Activity Restrictions/Additional Instructions: Thank you for choosing [facility] for your healthcare needs today. Please realize this is an emergency room and that we are providing you with a medical screening exam and this may not be complete and all inclusive of all the testing and or work up that you may need to determine your ailment or severity of your illness. You have been screened and evaluated and felt safe for discharge. Health conditions do change or evolve sometimes and as such it is important that you follow up with your Primary Doctor to be re checked, 3-5 days is a general good time frame for follow up. You are always welcome to return to the ED for re assessment if your symptoms are worsening or you have new concerns Coding Level of Care Code ED Crime Prevention Worker for Holly Del Cid
[2024-06-30 20:17] VITALS: BP 137/100; PULSE 84; O2SAT 98
[2024-06-30 20:21] LABS: HCG, Serum Qual Negative (Negative)
[2024-06-30 20:22] LABS: Alanine Aminotransferase 31 U/L (0-33); Albumin Level 4.5 g/dL (3.5-5.2); Alkaline Phosphatase 100 U/L (35-105); Anion Gap 18.7 (5-19); Aspartate Amino Transferase 30 U/L (0-32); Blood Urea Nitrogen 10 mg/dL (6-20); Calcium 9.3 mg/dL (8.5-10.5); Carbon Dioxide 17 mmol/L (22-29); Chloride 105 mmol/L (98-107); Creatinine Clr Calc Pharmacy 98.5646; Globulin 3.6 g/dL (1.3-4.6); Glomerular Filtration Rate 75.7 mL/min (90-130); Glucose 74 mg/dL (65-115); Lipase 53 U/L (13-60); Osmolality Calculated 282 mOsm/kg (285-295); Potassium 3.7 mmol/L (3.5-5.1); Sodium 137 mmol/L (136-145); Total Bilirubin 0.2 mg/dL (0.15-1.2); Total Protein 8.1 g/dL (6.6-8.7)
[2024-06-30 20:23] VITALS: RESP 18
[2024-06-30] MEDS: metoclopramide 5 mg/mL SDV 2 mL 10 MG IVP (20:23)
[2024-06-30] MEDS: fentaNYL 50 mcg/mL INJ 2mL IVP (20:23)
[2024-06-30] MEDS: diphenhydrAMINE 50 mg/mL SDV 1mL 12.5 MG IVP (20:26)
[2024-06-30] MEDS: lactated ringers 1,000 ML 999 ML IV (20:26)
[2024-06-30 21:32] LABS: Charge for UA Resulting for Rev
[2024-06-30 21:35] LABS: Bilirubin Urine Negative (Negative); Blood Urine Negative (Negative); Glucose Urine UA Negative (Normal); Ketones Urine Negative (Negative); Leukocyte Esterase Urine Negative (Negative); Nitrate Urine Negative (Negative); Protein Urine Negative (Negative); Specific Gravity, Urine 1.019 (1.005-1.030); Urine Appearance Clear (CLEAR); Urine Color Yellow (Yellow); Urobilinogen Urine 0.2 mg/dL (Negative)
[2024-06-30 21:37] LABS: Bacteria Urine 1+ /hpf; Hyaline Casts Urine 0.81 /lpf; RBC Urine 0-2 /hpf (0-2); Squamous Epithelial Cell Urine 0-5 /hpf (0-5); WBC Urine 0-5 /hpf (0-5)
[2024-06-30 21:48] VITALS: BP 137/100; PULSE 80; O2SAT 93
[2024-06-30 22:20] VITALS: RESP 18; O2SAT 99
[2024-06-30] MEDS: fentaNYL 50 mcg/mL INJ 2mL 25 MCG IVP (22:20)
[2024-06-30] MEDS: pantoprazole 40 mg SDV IVP (22:20)
[2024-06-30 22:25] VITALS: BP 137/100; PULSE 80; RESP 18; TEMP 36.8; O2SAT 99
--- NOTE | 2024-07-03 08:17 | DCPLANNER ---
Message sent to General surgery for EGD - Patient seen for abdominal pain.
== END 2024-06-30 22:27 | disposition home or self-care (01) ==
PROVIDERS: Emergency Medicine; Emergency Provider Nurse Practitioner Family
DX: R10.13 Epigastric pain (principal); F17.210 Nicotine dependence, cigarettes, uncomplicated
CPT/HCPCS: 36415; 80053; 81003; 81015; 83690; 84703; 85025; 96361; 96374; 96375; 96376; 99284; J1200; J2470; J2765; J3010; J7120

== ENCOUNTER 2024-07-23 07:08 | Day surgery (SDC) | payer MEDICAID, SELFPAY ==
[2024-04-18 11:58] VITALS: BP 122/80; BMI 34.6
--- NOTE | 2024-07-22 09:43 | P.ANESASSM_ITS ---
Pre-Anesthetic Assessment Height/Weight: Height 1.6 m Operation Date: 07/23/24 09:10 Proposed Procedures p Hysteroscopy w/ Myosure 83482, 28425, 78881, R80.853(Not Applicable) - Go Dodge MD s Dilation And Curettage (D&C)(Not Applicable) - Go Dodge MD s Cervical Conization biopsy(Not Applicable) - Go Dodge MD Familial anesthetic complications: None Was Beta Pineda taken within 24 hours: N/A Was Clonidine taken within 24 hours: N/A Social Tobacco and No alcohol Exam alert, oriented x 3, clear to auscultation bilaterally and regular rate & rhythm Airway Mallampati: Class II Dentition: other (None) Comments: Comments: Marijuana Pulmonary Asthma GI Gastroesophageal Reflux Disease Neuropsych Seizure (none in 5 months, none seem to have been witnessed by health care providers, occur with emotional distress - states they haven't been able to discover an etiology for the seizures) Anesthetic Plan ASA status: 3 Anesthesia: General Risk of > 500 ml blood loss (7ml/kg in children): No Medications/Allergies Home Medications Medication Instructions Recorded Confirmed Last Taken Type hydroxyzine HCl 50 mg tablet 50 mg PO TID PRN anxiety #90 tabs 02/08/24 07/22/24 07/21/24 Rx albuterol sulfate 90 mcg/actuation 2 puff inhalation Q6H PRN 04/09/24 07/22/24 Unknown History aerosol inhaler Shortness Of Breath escitalopram oxalate 10 mg tablet 10 mg PO QAM 05/16/24 07/22/24 07/21/24 History mupirocin 2 % topical ointment 1 applic topical TID PRN Skin 05/16/24 07/22/24 Unknown History Irritation quetiapine 50 mg tablet 50 mg PO BEDTIME 05/16/24 07/22/24 07/21/24 History diclofenac sodium 75 mg 75 mg PO Q12H PRN pain #20 tabs 06/20/24 07/22/24 Unknown Rx tablet,delayed release dicyclomine 20 mg tablet 20 mg PO QID PRN abdominal pain 06/30/24 07/22/24 07/21/24 Rx #20 tabs pantoprazole 40 mg tablet,delayed 40 mg PO DAILY 4 weeks #30 tabs 06/30/24 07/22/2424 Rx release Allergies Allergy/AdvReac Type Severity Reaction Status Date / Time sushi Allergy Mild ALGY-Hives Uncoded 07/22/24 09:07 poison malorie Allergy ALGY-Rash Uncoded 07/22/24 09:07 poison oak Allergy ALGY-Rash Uncoded 07/22/24 09:07 [facility] Anesthesia Medical History Normal pelvic exam Nicotine dependence, cigarettes, uncomplicated Cellulitis Marijuana use, episodic Generalized anxiety disorder Chronic post-traumatic stress disorder Cyclothymic disorder with anxious distress Psychiatric care Surgical History History of cholecystectomy Previous section Family History Mother Cancer Reportedly Ovarian cancer in her late 20's resulting in a hysterectomy Unknown Cancer unknown family member, breast cancer Social History Smoking and tobacco/nicotine status: current every day tobacco/nicotine user cigarettes Packs smoked per day: 0.5 Years cigarettes smoked: 8 Quit status (tobacco/nicotine): not considering quitting Second hand smoke exposure: Yes Alcohol intake: current Alcohol intake frequency: holidays/special occasions only Alcohol type: beer Substance/Drug Use: current Substance/Drug use frequency: daily Adopted: No Caregiver/support person: No Lives independently: Yes Household members: other Details: Grandparents Housing: House Marital status: Life Partner Number of children: 1 Number of grandchildren: 0 Highest education level completed: High School Graduate service: No Current occupational status: unemployed Pets and animals: Yes Pets & animals: cat(s), dog(s) and farm animals Farm Animals: chicken/turkey/other poultry Leisure activites: art, music, hunting, fishing and reading Sexually active: Yes How many partners: 1 Do you think of yourself as: pansexual Current gender identity: Female Shirley/Gnosticism: None Special shirley needs: No Agree to transfusion: Yes Female Reproductive History Para: 1 Spontaneous abortions: Yes Data Anesthesia Cardiac Studies: No Data to Display
[2024-07-23] VITALS (13 sets, daily range): BP systolic 108–138; BP diastolic 69–88; PULSE 70–100; RESP 13–18; TEMP 36.1–36.3; O2SAT 90–98; BMI 32.8
[2024-07-23] MEDS: scopolamine 1.5 Patch 1 PATCH TRANSDERMA (07:51)
[2024-07-23] MEDS: sodium chloride 0.9% 1,000 ML 30 ML IV (07:52)
[2024-07-23 08:08] LABS: OR HCG Qualitative Urine Negative (Negative)
--- NOTE | 2024-07-23 08:08 | P.ANESUD_ITS ---
Pre-Anesthetic Update Pre-Anesthetic Assessment: Date of Surgery/Procedure: 07/23/24 Preop Carly gnosis: Abnormal pap: ASC-H, Abnormal uterine bleeding Proposed Procedure: Operation Date: 07/23/24 09:10 Proposed Procedures p Hysteroscopy w/ Myosure 82160, 70917, 52013, R87.611(Not Applicable) - Go Dodge MD s Dilation And Curettage (D&C)(Not Applicable) - Go Dodge MD s Cervical Conization biopsy(Not Applicable) - Go Dodge MD Any changes to Pre-Anesthetic Assessment?: No Last Intake: Intake Last Liquid Date 07/22/24 Last Liquid Time 23:00 Last Solid Date 07/22/24 Last Solid Time 22:00 Vitals: Temperature 97.2 F L 07/23/24 07:39 Temperature Source Temporal Artery S can 07/23/24 07:39 Pulse Rate 73 07/23/24 07:39 Respiratory Rate 16 07/23/24 07:39 Blood Pressure 126/74 07/23/24 07:51 Blood Pressure Mercedes n 91 07/23/24 07:39 Pulse Oximetry 98 07/23/24 07:39 Oxygen Delivery Me thod Room Air 07/23/24 07:39 Exam: Pre-Anes Outpt Exam: alert, oriented x 3, clear to auscultation bilaterally and regular rate & rhythm Cardiac Studies: No Data to Display
[2024-07-23 08:16] LABS: Bilirubin Urine Negative (Negative); Blood Urine Negative (Negative); Glucose Urine UA Negative (Normal); Ketones Urine Negative (Negative); Leukocyte Esterase Urine Negative (Negative); Nitrate Urine Negative (Negative); Protein Urine Negative (Negative); Specific Gravity, Urine 1.009 (1.005-1.030); Urine Appearance Cloudy (CLEAR); Urine Color Yellow (Yellow); pH Urine 6.5 (5-7)
[2024-07-23 08:21] LABS: Bacteria Urine None Seen /hpf; Hyaline Casts Urine 0-4 /lpf; RBC Urine 0-2 /hpf (0-2); WBC Urine 0-5 /hpf (0-5)
[2024-07-23] MEDS: ceFAZolin 2,000 mg SDV 2000 MG IVP (08:21)
[2024-07-23] MEDS: metroNIDAZOLE IV 500 MG/100 ML PREMIX 100 MG IV (08:38)
[2024-07-23 08:54] LABS: Add Urine Culture? No; Add Urine Microscopic? NO
[2024-07-23 08:55] LABS: Charge for UA Resulting for Rev
--- NOTE | 2024-07-23 09:39 | W.PM.OPSUD ---
Surgery/Procedure H&P Update DATE OF PROCEDURE: July 23, 2024 DATE H&P PERFORMED: 07/12/24 H&P UPDATE INFORMATION: I have reviewed H&P completed within last 30 days, I have examined patient prior to procedure and No changes to prior documentation PREOP DIAGNOSIS: Abnormal pap: ASC-H, Abnormal uterine bleeding PLANNED PROCEDURE: Operation Date: 07/23/24 09:10 Proposed Procedures p Hysteroscopy w/ Myosure 43578, 26782, 26369, R87.611(Not Applicable) - Go Dodge MD s Dilation And Curettage (D&C)(Not Applicable) - Go Dodge MD s Cervical Conization biopsy(Not Applicable) - Go Dodge MD
--- NOTE | 2024-07-23 11:07 | PM.OP ---
Operative Report Date of procedure: July 23, 2024 Pre-op diagnosis: Abnormal uterine bleeding Abnormal Pap: Atypical squamous cells cannot exclude high Post-op diagnosis: same Procedure done: Hysteroscopy and dilation with curettage via MyoSure [facility] cone biopsy Specimens removed/disposition: Endometrial curettings Cervical cone biopsy Surgeon: Go Dodge MD Estimated blood loss (mL): 25 IV fluids (mL): 750 Complications: None Procedure: After informed consent, the risks included but were not limited to bleeding, infection, injury to internal organs. The patient was counseled on a possible laparotomy and on the potential need for hysterectomy. The patient expressed understanding of the risks involved, all questions were answered, and the patient consented to the procedure. After informed consent, the patient was taken to the operating room where general anesthesia was administered without difficulty. She was placed in the dorsal lithotomy position and prepped and draped in sterile fashion. A time out procedure was performed. The patient was examined under anesthesia and found to have an enlarged uterus with normal adnexa. A sterile open side speculum was placed in the vagina. The uterus was then gently sounded to 9 cm, and the cervix was dilated. The 0 degrees MyoSure hysteroscope was advanced gently to the uterine fundus while visualizing the monitor. Survey of the uterine cavity showed: Proliferative endometrium, the fundus shows normal proliferative endometrium; left ostium was visualized, and lateral wall with proliferative endometrium; right ostium visualized, and lateral wall with proliferative endometrium; anterior and posterior bowden are with proliferative endometrium; endocervical canal is normal. The MyoSure device was advanced and the direct visualization the endometrium was morcellated without complication. At the end of morcellation the fluid deficit was 250 mL and was estimated at approximately 200 mL were on the floor. There was minimal bleeding noted and the tenaculum removed with goad hemostasis noted. The proceeded to performed the cone biopsy. The decending cervical branchs of the uterine arteries were ligated with 3-0 Vicryl bilaterally at the level of the internal os. Attention was then turned to the cervix where it was stain with Lugol?s solution to hightlight the lesion. The paracervical area was then circumferentially infiltrated using 2% lidocaine with epinephrine. A [place] Cone Biopsy Excisor was used to cut the cone biopsy in circular fashion and following removal of the specimen a suture was placed at the 12 o?clock location and fixed in formalin. The Sturmdorf suture with 3-O Vycril was applied. Bleeding was minimal. The patient tolerated the procedure well, sponge, lap and needle counts were correct times two She was taken to the recovery room in good stable condition.
[2024-07-23] MEDS: meperidine 50 mg/mL INJ 12.5 MG IVP (11:35)
--- NOTE | 2024-07-23 12:30 | ANE.PACU2 ---
Inpatient post-anesthesia follow up: Airway intact: Yes Vital signs: Temperature 97.4 F Pulse Rate 88 Respiratory Rate 18 Blood Pressure 138/88 Pulse Oximetry 94 Oxygen Delivery Me thod Room Air Oxygen Flow Rate 3 Fraction of Inspir ed Oxygen Hydration adequate: Yes Nausea and vomiting: No Pain level: 1 Mental status: Baseline
== END 2024-07-23 12:31 | disposition home or self-care (01) ==
PROVIDERS: Visit Provider Obstetrics & Gynecology
PROC: 0UDB8ZZ Extraction of Endometrium, Via Natural or Artificial Opening Endoscopic (ICD-10-PCS; CPT 58558; principal; 2024-07-23 09:00)
PROC: (CPT 58120; 2024-07-23 09:00)
PROC: 0UBC7ZZ Excision of Cervix, Via Natural or Artificial Opening (ICD-10-PCS; CPT 57520; 2024-07-23 09:00)
DX: N87.0 Mild cervical dysplasia (principal); N72 Inflammatory disease of cervix uteri; J45.909 Unspecified asthma, uncomplicated; K21.9 Gastro-esophageal reflux disease without esophagitis; F17.210 Nicotine dependence, cigarettes, uncomplicated
CPT/HCPCS: 58558; 36415; 81003; 81025; 86850; 86900; 88305; 88307; 88342; J0690; J1100; J1885; J2175; J2250; J2405; J2704; J3010; J3490; J7030

== ENCOUNTER 2024-08-20 14:13 | Emergency (ER) | payer MEDICAID, SELFPAY ==
[2024-04-18 11:58] VITALS: BP 122/80; BMI 34.6
[2024-08-20 14:18] VITALS: BP 142/94; PULSE 79; RESP 14; O2SAT 95
--- NOTE | 2024-08-20 14:32 | CTR_ITS ---
PROCEDURE INFORMATION: Exam: CT Head Without Contrast Exam date and time: 08/20/2024 2:42 PM Age: 24 years old Clinical indication: Stroke-like symptoms; Other: Seizure; RT upper extremity weakness; Additional info: Possible stroke TECHNIQUE: Imaging protocol: Computed tomography of the head without contrast. Radiation optimization: All CT scans at this facility use at least one of these dose optimization techniques: automated exposure control; mA and/or kV adjustment per patient size (includes targeted exams where dose is matched to clinical indication); or iterative reconstruction. Other technique: STROKE PROTOCOL was implemented. COMPARISON: CT head wo con* [id number] 03/24/2022 6:09 PM RADIATION DOSE METRICS: Total DLP (mGy-cm): 1060 FINDINGS: Brain: No evidence of intra-axial or extra-axial hemorrhage. No mass effect or midline shift. Shultz-white differentiation is maintained. Basilar cisterns are patent. Cerebral ventricles: No hydrocephalus. Paranasal sinuses: The visualized paranasal sinuses are well aerated. Mastoid air cells: The visualized mastoids and middle ears are clear. Bones: Calvarium is intact. No evidence of acute fracture. Soft tissues: No gross soft tissue abnormality. CT/CT head wo con* [id number] IMPRESSION: 1. No acute intracranial abnormality. ASSESSMENT: ASPECTS (Erna Stroke Program Early CT Score) is 10.
--- NOTE | 2024-08-20 14:45 | CTR_ITS ---
PROCEDURE INFORMATION: Exam: CTA Head With Contrast, Arteriography Exam date and time: 08/20/2024 2:53 PM Age: 24 years old Clinical indication: Stroke-like symptoms; RT upper extremity weakness; Additional info: Possible stroke TECHNIQUE: Imaging protocol: Computed tomographic angiography of the head with contrast. Exam focused on the arteries. 3D rendering (Not supervised by radiologist): MIP and/or 3D reconstructed images were created by the technologist. Radiation optimization: All CT scans at this facility use at least one of these dose optimization techniques: automated exposure control; mA and/or kV adjustment per patient size (includes targeted exams where dose is matched to clinical indication); or iterative reconstruction. Contrast material: [id number]; Contrast volume: 80 ml; Contrast route: INTRAVENOUS (IV); COMPARISON: CT head wo con* [id number] 08/20/2024 2:42 PM RADIATION DOSE METRICS: Total DLP (mGy-cm): 395 FINDINGS: ANTERIOR CIRCULATION: Right internal carotid artery: Patent. Right middle cerebral artery: Patent. Right anterior cerebral artery: Patent. Left internal carotid artery: Patent. Left middle cerebral artery: Patent. Left anterior cerebral artery: Patent. POSTERIOR CIRCULATION: Right vertebral artery: Patent. Left vertebral artery: Patent. Basilar artery: Patent. Right posterior cerebral artery: Patent. Left posterior cerebral artery: Patent. PROCEDURE INFORMATION: Exam: CTA Neck With Contrast Exam date and time: 08/20/2024 2:53 PM Age: 24 years old Clinical indication: Stroke-like symptoms; RT upper extremity weakness; Additional info: Possible stroke TECHNIQUE: Imaging protocol: Computed tomographic angiography of the neck with contrast. Exam focused on the cervical segments of the vasculature. 3D rendering (Not supervised by radiologist): MIP and/or 3D reconstructed images were created by the technologist. Radiation optimization: All CT scans at this facility use at least one of these dose optimization techniques: automated exposure control; mA and/or kV adjustment per patient size (includes targeted exams where dose is matched to clinical indication); or iterative reconstruction. Contrast material: [id number]; Contrast volume: 80 ml; Contrast route: INTRAVENOUS (IV); COMPARISON: CT head wo con* [id number] 08/20/2024 2:42 PM RADIATION DOSE METRICS: Total DLP (mGy-cm): 395 FINDINGS: Right common carotid artery: Patent. No evidence of hemodynamically significant stenosis. Right internal carotid artery: Patent. No evidence of hemodynamically significant stenosis. Right external carotid artery: Patent. Left common carotid artery: Patent. No evidence of hemodynamically significant stenosis. Left internal carotid artery: Patent. No evidence of hemodynamically significant stenosis. Left external carotid artery: Patent. Right vertebral artery: Patent. Left vertebral artery: Patent. Soft tissues: No gross soft tissue abnormality. No evidence of fluid collection or hematoma. Bones/joints: No evidence of acute fracture or subluxation of the cervical spine. CT/CT angio headneck* [id number] IMPRESSION: 1. No evidence of large vessel occlusion or acute thrombosis in the head. IMPRESSION: 1. No evidence of acute thrombosis or hemodynamically significant stenosis in the neck. REFERENCES: NASCET CRITERIA. The degree of stenosis in the cervical segment of the internal carotid artery is based on NASCET criteria. Normal is no stenosis. Mild is less than 50% stenosis. Moderate is 50-69% stenosis. Severe is 70% to 99% stenosis. Total occlusion is no detectable patent lumen.
[2024-08-20] MEDS: iohexol 350 mg/mL 500 mL Btl (per mL) IV (14:58)
--- NOTE | 2024-08-20 15:03 | ECG_ITS ---
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
[2024-08-20 15:41] LABS: ABG PH Result 7.55 (7.35-7.45); Arterial Blood Gas Hematocrit 47.2 % (37-47); Base Excess ABG -2.6 mmol/L (-2.0-2.0); Blood Gas Operator Identificat glc; Blood Gas Sample Site Brachial, left; Blood Gas Sample Type Arterial; Carboxyhemoglobin 3.9 %THgb (0.4-20.1); HCO3 ABG 16.9 mmol/L (22-26); HGB O2 Sat 95.9 % (95-100); Ionized Calcium Level - ABG 1.2 mmol/L (1.1-1.4); Methemoglobin 0.1 % (0.4-1.5); Oxygen Device ROOM AIR; Oxygen Saturation ABG > 99.1; PO2 FiO2 Ratio Arterial Blood 547; Potassium Level - ABG 3.5 mmol/L (3.5-5.0); Total Hemoglobin 15.4 g/dL (12-16)
[2024-08-20 15:43] LABS: Basophils # 0.1 10^3/uL (0.0-0.1); Basophils % 0.6 %; Eosinophils # 0.2 10^3/uL (0.0-0.8); Eosinophils % 1.7 %; Lymphocytes # 3.1 10^3/uL (0.8-4.8); Lymphocytes % 34.8 %; Mean Corpuscular HGB Conc 32.3 g/dL (30-55); Mean Corpuscular Hemoglobin 26.4 pg (27-33); Mean Corpuscular Volume 81.8 fl (85-98); Mean Platelet Volume 9.3 fL (7.4-10.4); Monocytes # 0.5 10^3/uL (0.2-0.9); Monocytes % 5.3 %; Neutrophils # 5.11 10^3/uL (1.8-7.7); Neutrophils % 57.4 %; Nucleated Red Blood Cells % 0 %; Platelet Count 333 10^3/cmm (157-399); Red Blood Count 4.89 10^6/uL (3.85-5.65); Red Cell Distribution Width 15.9 % (12.1-15.1)
[2024-08-20 15:47] LABS: ABG PCO2 19.2 mmHg (35-45)
[2024-08-20] MEDS: LORazepam 2 mg/mL INJ 1 mL 1 MG IVP ×2 (15:51→17:27)
[2024-08-20 16:02] LABS: HCG, Serum Qual Negative (Negative)
[2024-08-20 16:15] LABS: Alanine Aminotransferase 21 U/L (0-33); Alkaline Phosphatase 117 U/L (35-105); Anion Gap 18.6 (5-19); Aspartate Amino Transferase 22 U/L (0-32); Blood Urea Nitrogen 5 mg/dL (6-20); Calcium 9.1 mg/dL (8.5-10.5); Carbon Dioxide 18 mmol/L (22-29); Chloride 104 mmol/L (98-107); Globulin 3.6 g/dL (1.3-4.6); Glomerular Filtration Rate 101.1 mL/min (90-130); Glucose 69 mg/dL (65-115); Magnesium 2.1 mg/dL (1.7-2.3); Osmolality Calculated 280 mOsm/kg (285-295); Potassium 3.6 mmol/L (3.5-5.1); Sodium 137 mmol/L (136-145); Thyroid Stimulating Hormone 2.16 uIU/mL (0.27-4.20); Total Bilirubin 0.4 mg/dL (0.15-1.2); Total Protein 7.6 g/dL (6.6-8.7)
[2024-08-20 16:26] LABS: Bilirubin Urine Negative (Negative); Blood Urine Negative (Negative); Glucose Urine UA Negative (Normal); Ketones Urine Trace (Negative); Leukocyte Esterase Urine Negative (Negative); Nitrate Urine Negative (Negative); Protein Urine Negative (Negative); Urine Appearance Clear (CLEAR); Urine Color Yellow (Yellow); pH Urine 7.5 (5-7)
[2024-08-20 16:29] LABS: Bacteria Urine 1+ /hpf; Hyaline Casts Urine 0-4 /lpf; RBC Urine 0-2 /hpf (0-2); Squamous Epithelial Cell Urine 0-5 /hpf (0-5)
[2024-08-20 16:35] LABS: Amphetamines Screen Urine Negative (Negative); Barbiturates Screen Urine Negative (Negative); Benzodiazepines Screen Urine Negative (Negative); Cocaine Screen Urine Negative (Negative); Opiate Screen Urine Negative (Negative); PCP Screen Urine Negative (Negative); THC Screen Urine Positive (Negative)
[2024-08-20 16:44] LABS: Specific Gravity, Urine 1.056 (1.005-1.030)
[2024-08-20 16:45] LABS: Add Urine Culture? No
--- NOTE | 2024-08-20 16:47 | ED_ITS ---
HPI - Neuro Symptoms/Deficit 2 General: Chief Complaint: Neuro Symptoms/Deficit Stated Complaint: rt arm numbness (stroke like symptyoms) Time Seen by Provider: 08/20/24 14:32 History of Present Illness: 24-year-old female who reports a history of pseudoseizures who presents the emergency room after having multiple seizure type events and now is complaining of some right sided weakness. The person that is with her is concerned she might be having a stroke. She initially does appear slightly weaker in her right arm and her right leg. Lifting them a little bit slower than the other. No sensory deficits. No altered mental status at this point. No focal motor deficits. No fevers. No chest pain. Apparently she had a very stressful event this morning and that had gone to work. Stress has triggered her pseudoseizures in the past. She is never had any weakness associated with this though. Related Data Home Medications Medication Instructions Recorded Confirmed albuterol sulfate 90 mcg/actuation 2 puff inhalation Q6H PRN 04/09/24 08/06/24 aerosol inhaler Shortness Of Breath escitalopram oxalate 10 mg tablet 10 mg PO QAM 05/16/24 08/06/24 quetiapine 50 mg tablet 50 mg PO BEDTIME 05/16/24 08/06/24 guaifenesin 600 mg tablet, 600 mg PO BID 08/06/24 08/06/24 extended release 12 hr (Mucinex) loratadine 10 mg tablet (Allergy 10 mg PO DAILY 08/06/24 08/06/24 Relief (loratadine)) Previous Rx's Medication Instructions Recorded hydroxyzine HCl 50 mg tablet 50 mg PO TID PRN anxiety #90 tabs 02/08/24 diclofenac sodium 75 mg 75 mg PO Q12H PRN pain #20 tabs 06/20/24 tablet,delayed release dicyclomine 20 mg tablet 20 mg PO QID PRN abdominal pain 06/30/24 #20 tabs acetaminophen 325 mg capsule 325 mg PO Q4H PRN fever or pain 07/23/24 #60 caps ibuprofen 800 mg tablet 800 mg PO TID PRN pain #60 tabs 07/23/24 metronidazole 500 mg tablet 500 mg PO BID 7 days #14 tabs 08/08/24 cephalexin 500 mg capsule 500 mg PO BID 5 days #10 caps 08/20/24 lorazepam 0.5 mg tablet (Ativan) 0.5 mg PO DAILY PRN anxiety #14 08/20/24 tabs Allergies Allergy/AdvReac Type Severity Reaction Status Date / Time sushi Allergy Mild ALGY-Hives Uncoded 08/06/24 11:19 poison malorie Allergy ALGY-Rash Uncoded 08/06/24 11:19 poison oak Allergy ALGY-Rash Uncoded 08/06/24 11:19 Review of Systems 2 Narrative: Constitutional symptoms: Negative except as documented in HPI. Skin symptoms: Negative except as documented in HPI. Eye symptoms: Negative except as documented in HPI. ENMT symptoms: Negative except as documented in HPI. Respiratory symptoms: Negative except as documented in HPI. Cardiovascular symptoms: Negative except as documented in HPI. Gastrointestinal symptoms: Negative except as documented in HPI. Genitourinary symptoms: Negative except as documented in HPI. Musculoskeletal symptoms: Negative except as documented in HPI. Neurologic symptoms: Negative except as documented in HPI. Psychiatric symptoms: Negative except as documented in HPI. Endocrine symptoms: Negative except as documented in HPI. PFSH ED 2 PFSH: Medical History (Updated 08/20/24 @ 16:58 by Maru Weaver MD) Normal pelvic exam Nicotine dependence, cigarettes, uncomplicated Cellulitis Marijuana use, episodic Generalized anxiety disorder Chronic post-traumatic stress disorder Cyclothymic disorder with anxious distress Psychiatric care Surgical History (Updated 08/06/24 @ 11:41 by Tangela Quach APN, WHSINGH) History of hysteroscopy (~07/23/24) Hysteroscopy with D&C History of cone biopsy of cervix (~07/23/24) performed by Dar at [facility] for ASCUS(H)-- pathology demonstrated GIANNI 1 w/o clear margins; low grade dysplasia present at the margins. ECC was negative but suggestive of a fibroid. History of cholecystectomy Previous section Family History Mother Cancer Reportedly Ovarian cancer in her late 20's resulting in a hysterectomy Unknown Cancer unknown family member, breast cancer Female Reproductive History: Para: 1 Spontaneous abortions: Yes Physical Exam 2 Narrative: EXAM NARRATIVE: General: Alert, no acute distress. Skin: Warm, dry. Head: Normocephalic, atraumatic. Neck: Supple, trachea midline. Eye: Extraocular movements are intact. Ears, nose, mouth and throat: mucosa moist. Cardiovascular: Regular, Normal peripheral perfusion. Respiratory: Lungs are clear to auscultation, respirations are non-labored, breath sounds are equal, Symmetrical chest wall expansion. Gastrointestinal: Soft, Nontender, Non distended Musculoskeletal: Normal ROM, no deformity. Neurological: Alert and oriented, No focal neurological deficit observed. Possibly some mild weakness in her right leg and arm. Psychiatric: Patient appears anxious. She is also moving very slowly. Course 2 Vital Signs: Vital signs: Vital Signs Pulse Rate 79 08/20/24 14:18 Respiratory Rate 14 08/20/24 14:18 Blood Pressure 142/94 08/20/24 14:18 Pulse Oximetry 95 08/20/24 14:18 Oxygen Delivery Me thod Room Air 08/20/24 14:18 MDM - Neuro Symptoms/Deficit Medical Decision Making Medical decision making: Differential diagnosis for patient with focal neurologic deficit(s) includes but not limited to and based on the above HPI, review of systems and physical exam: ischemic stroke, hemorrhagic stroke and embolic stroke secondary to atrial fibrillation), TIA, Nelson's palsey, metabolic encephalopathy with previous stroke. Orders placed to evaluate differential diagnosis based on the above differential, HPI and physical exam EKG: Time 1503. Rate 69. Normal sinus rhythm, No ST-T changes, no ectopy, normal MN & QRS intervals, This was reviewed and interpreted by myself the ER physician at 1507 CT head: No acute intracranial process. no intracranial hemorrhage, no evidence of infarct. no evidence of acute fracture.This was reviewed and interpreted by myself the ER physician. CTA of the head and neck: No obvious occlusions are identified. No mass. This was reviewed and interpreted by myself the emergency room physician. I also reviewed the radiology report. Lab Review: Laboratory results were reviewed and interpreted by myself the emergency room physician. Lab work is unremarkable. No leukocytosis. No anemia. No renal failure. Liver enzymes are normal. Drug screen is positive for marijuana. Urinalysis is 6-10 whites and 1+ bacteria. Consultation: I spoke with Dr. Diego who is on-call for neurology. He evaluated the patient in the emergency room. At the time of his evaluation she had mostly resolved. He had recommended a CTA and a CT. These are done. Lab work at his discretion as well. He believes this is likely an anxiety reaction. She has had issues with stress and pseudoseizures etc. in the past. She found out today that her mom had recurrent cancer. I reviewed the patient's medical record. Reexamination: Patient remained stable. No increased work of breathing. No altered mental status. No focal motor deficits. Symptoms have resolved. Patient does have a bit of a headache. Assessment and plan: Pseudoseizure Anxiety reaction Panic attack Headache Urinary tract infection ?IV Ativan and IV Toradol here in the emergency room. I called her and some Keflex and some as needed Ativan. - Discharged home - Discussed plan with patient. Answered any questions. - Evaluation and treatment of this problem were appropriate in the emergency setting. Lab Data 08/20/24 15:35 08/20/24 15:[address] 08/20/24 14:32 IMPRESSION: 1. No acute intracranial abnormality. ASSESSMENT: ASPECTS (Erna Stroke Program Early CT Score) is 10. Head/Neck CTA 08/20/24 14:45 IMPRESSION: 1. No evidence of large vessel occlusion or acute thrombosis in the head. IMPRESSION: 1. No evidence of acute thrombosis or hemodynamically significant stenosis in the neck. REFERENCES: NASCET CRITERIA. The degree of stenosis in the cervical segment of the internal carotid artery is based on NASCET criteria. Normal is no stenosis. Mild is less than 50% stenosis. Moderate is 50-69% stenosis. Severe is 70% to 99% stenosis. Total occlusion is no detectable patent lumen. Laboratory Results WBC 8.90 10^3/uL (3.29-11.43) 08/20/24 15:35 RBC 4.89 10^6/uL (3.85-5.65) 08/20/24 15:35 Hgb 12.90 g/dL (11.27-16.99) 08/20/24 15:35 Hct 40.0 % (36-47) 08/20/24 15:35 MCV 81.8 fl (85-98) L 08/20/24 15:35 MCH 26.4 pg (27-33) L 08/20/24 15:35 MCHC 32.3 g/dL (30-55) 08/20/24 15:35 RDW 15.9 % (12.1-15.1) H 08/20/24 15:35 Plt Count 333 10^3/cmm (157-399) 08/20/24 15:35 MPV 9.3 fL (7.4-10.4) 08/20/24 15:35 Neut % (Auto) 57.4 % 08/20/24 15:35 Lymph % (Auto) 34.8 % 08/20/24 15:35 Weakley % (Auto) 5.3 % 08/20/24 15:35 Eos % (Auto) 1.7 % 08/20/24 15:35 Baso % (Auto) 0.6 % 08/20/24 15:35 Neut # (Auto) 5.11 10^3/uL (1.8-7.7) 08/20/24 15:35 Lymph # (Auto) 3.1 10^3/uL (0.8-4.8) 08/20/24 15:35 Weakley # (Auto) 0.5 10^3/uL (0.2-0.9) 08/20/24 15:35 Eos # (Auto) 0.2 10^3/uL (0.0-0.8) 08/20/24 15:35 Baso # (Auto) 0.1 10^3/uL (0.0-0.1) 08/20/24 15:35 Nucleated RBC % (auto) 0 % 08/20/24 15:35 Nucleated RBCs # 0.0 /100WBC 08/20/24 15:35 Specimen Type Arterial 08/20/24 15:10 Sample Site Brachial, left 08/20/24 15:10 ABG pH 7.55 (7.35-7.45) H 08/20/24 15:10 ABG pCO2 19.2 mmHg (35-45) L* 08/20/24 15:10 ABG pO2 115.0 mmHg (80.0-100.0) H 08/20/24 15:10 ABG PO2/FiO2 Ratio 547 08/20/24 15:10 ABG HCO3 16.9 mmol/L (22-26) L 08/20/24 15:10 ABG O2 Saturation > 99.1 08/20/24 15:10 ABG Base Excess -2.6 mmol/L (-2.0-2.0) L 08/20/24 15:10 Rene Test N/a 08/20/24 15:10 A-a O2 Gradient 1.0 mmHg (5-10) L 08/20/24 15:10 Hematocrit 47.2 % (37-47) H 08/20/24 15:10 Hgb O2 Saturation 95.9 % (95-100) 08/20/24 15:10 Carboxyhemoglobin 3.9 %THgb (0.4-20.1) 08/20/24 15:10 Methemoglobin 0.1 % (0.4-1.5) L 08/20/24 15:10 Total Hemoglobin 15.4 g/dL (12-16) 08/20/24 15:10 Sodium 140.0 mmol/L (131-143) 08/20/24 15:10 Potassium 3.5 mmol/L (3.5-5.0) 08/20/24 15:10 Glucose 62.0 mg/dL (70-115) L 08/20/24 15:10 Ionized Calcium 1.2 mmol/L (1.1-1.4) 08/20/24 15:10 O2 Delivery Device Room air 08/20/24 15:10 FiO2 21.0 % 08/20/24 15:10 Equipment Scheduler ID glc 08/20/24 15:10 Sodium 137 mmol/L (136-145) 08/20/24 15:35 Potassium 3.6 mmol/L (3.5-5.1) 08/20/24 15:35 Chloride 104 mmol/L (98-107) 08/20/24 15:35 Carbon Dioxide 18 mmol/L (22-29) L 08/20/24 15:35 Anion Gap 18.6 (5-19) 08/20/24 15:35 BUN 5 mg/dL (6-20) L 08/20/24 15:35 Creatinine 0.7 mg/dL (0.5-0.9) 08/20/24 15:35 GFR Calculation 101.1 mL/min (90-130) 08/20/24 15:35 Glucose 69 mg/dL (65-115) 08/20/24 15:35 Calculated Osmolality 280 mOsm/kg (285-295) L 08/20/24 15:35 Lactic Acid 3.0 mmol/L (0.5-2.2) H 08/20/24 15:35 Calcium 9.1 mg/dL (8.5-10.5) 08/20/24 15:35 Magnesium 2.1 mg/dL (1.7-2.3) 08/20/24 15:35 Total Bilirubin 0.4 mg/dL (0.15-1.2) 08/20/24 15:35 AST 22 U/L (0-32) 08/20/24 15:35 ALT 21 U/L (0-33) 08/20/24 15:35 Alkaline Phosphatase 117 U/L (35-105) H 08/20/24 15:35 Total Protein 7.6 g/dL (6.6-8.7) 08/20/24 15:35 Albumin 4.0 g/dL (3.5-5.2) 08/20/24 15:35 Globulin 3.6 g/dL (1.3-4.6) 08/20/24 15:35 TSH 2.16 uIU/mL (0.27-4.20) 08/20/24 15:35 HCG, Qual Negative (Negative) 08/20/24 15:35 Urine Color Yellow (Yellow) 08/20/24 16:03 Urine Appearance Clear (CLEAR) 08/20/24 16:03 Urine pH 7.5 (5-7) 08/20/24 16:03 Ur Specific Slaughters 1.056 (1.005-1.030) H 08/20/24 16:03 Urine Protein Negative (Negative) 08/20/24 16:03 Urine Glucose (UA) Negative (Normal) 08/20/24 16:03 Urine Ketones Trace (Negative) 08/20/24 16:03 Urine Blood Negative (Negative) 08/20/24 16:03 Urine Nitrate Negative (Negative) 08/20/24 16:03 Urine Bilirubin Negative (Negative) 08/20/24 16:03 Urine Urobilinogen 1.0 mg/dL (Negative) 08/20/24 16:03 Ur Leukocyte Esterase Negative (Negative) 08/20/24 16:03 Urine RBC 0-2 /hpf (0-2) 08/20/24 16:03 Urine WBC 6-10 /hpf (0-5) 08/20/24 16:03 Ur Squamous Epith Cells 0-5 /hpf (0-5) 08/20/24 16:03 Amorphous Sediment Not Reportable 08/20/24 16:03 Urine Bacteria 1+ /hpf (NONE) H 08/20/24 16:03 Hyaline Casts 0-4 /lpf H 08/20/24 16:03 Urine Opiates Screen Negative ng/mL (Negative) 08/20/24 16:03 Ur Barbiturates Screen Negative ng/mL (Negative) 08/20/24 16:03 Ur Phencyclidine Scrn Negative ng/mL (Negative) 08/20/24 16:03 Ur Amphetamines Screen Negative ng/mL (Negative) 08/20/24 16:03 U Benzodiazepines Scrn Negative ng/mL (Negative) 08/20/24 16:03 Urine Cocaine Screen Negative ng/mL (Negative) 08/20/24 16:03 U Marijuana (THC) Screen Positive ng/mL (Negative) H 08/20/24 16:03 All radiology interpretation(s) finalized by discharge Discharge Plan Discharge Patient Disposition: Home Clinical Impression: Panic attack, Anxiety, Stress reaction, Seizure-like activity, UTI (urinary tract infection) Condition: Stable Prescriptions: New lorazepam [Ativan] 0.5 mg tablet 0.5 mg PO DAILY PRN (Reason: anxiety) Qty: 14 0RF cephalexin 500 mg capsule 500 mg PO BID 5 Days Qty: 10 0RF No Action hydroxyzine HCl 50 mg tablet 50 mg PO TID PRN (Reason: anxiety) Qty: 90 3RF albuterol sulfate 90 mcg/actuation HFA aerosol inhaler 2 puff inhalation Q6H PRN (Reason: Shortness Of Breath) loratadine [Allergy Relief (loratadine)] 10 mg tablet 10 mg PO DAILY guaifenesin [Mucinex] 600 mg tablet extended release 12hr 600 mg PO BID metronidazole 500 mg tablet 500 mg PO BID 7 Days Qty: 14 0RF diclofenac sodium 75 mg tablet,delayed release (DR/EC) 75 mg PO Q12H PRN (Reason: pain) Qty: 20 0RF escitalopram oxalate 10 mg tablet 10 mg PO QAM quetiapine 50 mg tablet 50 mg PO BEDTIME dicyclomine 20 mg tablet 20 mg PO QID PRN (Reason: abdominal pain) Qty: 20 0RF ibuprofen 800 mg tablet 800 mg PO TID PRN (Reason: pain) Qty: 60 0RF acetaminophen 325 mg capsule 325 mg PO Q4H PRN (Reason: fever or pain) Qty: 60 0RF Discharge Orders: Discharge ED (Routine); Ordered 08/20/24 Ordered By: Maru Weaver Discharge Diet: Usual diet Discharge Activity: Increase activity as tolerated Patient Instructions: Nonepileptic Seizures (ED), Anxiety (ED), Panic Attack (ED) Activity Restrictions/Additional Instructions: Thank you for choosing [facility] for your healthcare needs today. Please realize this is an emergency room and that we are providing you with a medical screening exam and this may not be complete and all inclusive of all the testing and or work up that you may need to determine your ailment or severity of your illness. You have been screened and evaluated and felt safe for discharge. Health conditions do change or evolve sometimes and as such it is important that you follow up with your Primary Doctor to be re checked, 3-5 days is a general good time frame for follow up. You are always welcome to return to the ED for re assessment if your symptoms are worsening or you have new concerns Coding Level of Care Code ED [employer] for [employer]
[2024-08-20 17:26] LABS: Reflex Lactate Order REFLEX LACTIC ORDERD
[2024-08-20] MEDS: ketorolac 30 mg/mL INJ IVP (17:26)
[2024-08-20 17:29] VITALS: BP 136/87; PULSE 77; O2SAT 98
[2024-08-20 17:55] VITALS: BP 136/87; PULSE 71; O2SAT 100
== END 2024-08-20 18:03 | disposition home or self-care (01) ==
PROVIDERS: Emergency Provider Emergency Medicine
DX: F41.0 Panic disorder [episodic paroxysmal anxiety] (principal); F41.9 Anxiety disorder, unspecified; F43.9 Reaction to severe stress, unspecified; R56.9 Unspecified convulsions; N39.0 Urinary tract infection, site not specified
CPT/HCPCS: 36415; 36600; 70450; 70496; 70498; 80051; 80053; 80306; 81001; 82330; 82805; 83605; 83735; 84443; 84703; 85025; 93005; 96374; 96375; 96376; 99285; J1885; J2060

== ENCOUNTER 2024-09-25 15:55 | Emergency (ER) | payer MEDICAID, SELFPAY ==
[2024-04-18 11:58] VITALS: BP 122/80; BMI 34.6
[2024-09-25] VITALS (13 sets, daily range): BP systolic 106–153; BP diastolic 69–121; PULSE 68–96; RESP 11–19; TEMP 36.3; O2SAT 93–100; BMI 40.7
--- NOTE | 2024-09-25 15:59 | XRR_ITS ---
PROCEDURE INFORMATION: Exam: XR Chest Exam date and time: 09/25/2024 4:20 PM Age: 24 years old Clinical indication: Other: Mental health eval; Additional info: AMS TECHNIQUE: Imaging protocol: Radiologic exam of the chest. Views: 1 view. COMPARISON: CR XR chest 1V portable [id number] 04/23/2024 1:54 AM FINDINGS: Lungs: Hypoinflated lungs. No focal consolidation or other acute appearing pulmonary opacity. Pleural spaces: No pleural effusion or pneumothorax noted. Heart/Mediastinum: There is cardiomegaly. Bones/joints: No acute osseous abnormality. XR/XR chest 1V portable [id number] IMPRESSION: No acute cardiopulmonary disease.
--- NOTE | 2024-09-25 15:59 | CTR_ITS ---
PROCEDURE INFORMATION: Exam: CT Head Without Contrast Exam date and time: 09/25/2024 5:26 PM Age: 24 years old Clinical indication: Altered mental status/memory loss; Confusion or disorientation; Additional info: AMS TECHNIQUE: Imaging protocol: Computed tomography of the head without contrast. Radiation optimization: All CT scans at this facility use at least one of these dose optimization techniques: automated exposure control; mA and/or kV adjustment per patient size (includes targeted exams where dose is matched to clinical indication); or iterative reconstruction. COMPARISON: CT angio headneck* [id number] 08/20/2024 2:53 PM RADIATION DOSE METRICS: Total DLP (mGy-cm): 1400.52 FINDINGS: Brain: No hemorrhage, no periventricular white matter disease. No mass effect. Basal cisterns are patent. Cerebral ventricles: No ventriculomegaly. Paranasal sinuses: No significant air-fluid levels noted in the visualized sinuses. Mastoid air cells: Mastoid air cells are aerated with no effusions. Bones: No acute osseous abnormality. Soft tissues: Unremarkable. CT/CT head wo con* [id number] IMPRESSION: No acute intracranial abnormality.
--- NOTE | 2024-09-25 16:02 | ED_ITS ---
HPI - General Adult 2 General: Chief complaint: Altered Mental Status Stated complaint: unresponsive Time Seen by Provider: 09/25/24 15:56 Source: EMS Mode of arrival: EMS Limitations: altered mental status History of Present Illness: 24-year-old female who is here with EMS after being found unresponsive at home. EMS states that her boyfriend found her naked on the floor unsure how long she has been there. Patient here will open her eyes but will not respond to any commands will not verbalize anything. Related Data Home Medications Medication Instructions Recorded Confirmed albuterol sulfate 90 mcg/actuation 2 puff inhalation Q6H PRN 04/09/24 08/06/24 aerosol inhaler Shortness Of Breath escitalopram oxalate 10 mg tablet 10 mg PO QAM 05/16/24 08/06/24 quetiapine 50 mg tablet 50 mg PO BEDTIME 05/16/24 08/06/24 guaifenesin 600 mg tablet, 600 mg PO BID 08/06/24 08/06/24 extended release 12 hr (Mucinex) loratadine 10 mg tablet (Allergy 10 mg PO DAILY 08/06/24 08/06/24 Relief (loratadine)) Previous Rx's Medication Instructions Recorded hydroxyzine HCl 50 mg tablet 50 mg PO TID PRN anxiety #90 tabs 02/08/24 diclofenac sodium 75 mg 75 mg PO Q12H PRN pain #20 tabs 06/20/24 tablet,delayed release dicyclomine 20 mg tablet 20 mg PO QID PRN abdominal pain 06/30/24 #20 tabs acetaminophen 325 mg capsule 325 mg PO Q4H PRN fever or pain 07/23/24 #60 caps ibuprofen 800 mg tablet 800 mg PO TID PRN pain #60 tabs 07/23/24 metronidazole 500 mg tablet 500 mg PO BID 7 days #14 tabs 08/08/24 lorazepam 0.5 mg tablet (Ativan) 0.5 mg PO DAILY PRN anxiety #14 08/20/24 tabs Allergies Allergy/AdvReac Type Severity Reaction Status Date / Time poison malorie extract Allergy ALGY-Rash Verified 09/09/24 14:14 poison oak extract Allergy ALGY-Rash Verified 09/09/24 14:14 sushi Allergy Mild ALGY-Hives Uncoded 08/06/24 11:19 Review of Systems 2 General: Reports: ROS unobtainable due to mental status PFS ED 2 PFSH: Medical History (Updated 08/28/24 @ 00:01 by ISMAEL Lopez) Normal pelvic exam Nicotine dependence, cigarettes, uncomplicated Cellulitis Marijuana use, episodic Generalized anxiety disorder Chronic post-traumatic stress disorder Cyclothymic disorder with anxious distress Psychiatric care Surgical History (Updated 08/06/24 @ 11:41 by Tangela Quach, MAIL EXAMINER, BULL) History of hysteroscopy (~07/23/24) Hysteroscopy with D&C History of cone biopsy of cervix (~07/23/24) performed by Dar at [facility] for ASCUS(H)-- pathology demonstrated GIANNI 1 w/o clear margins; low grade dysplasia present at the margins. ECC was negative but suggestive of a fibroid. History of cholecystectomy Previous section Family History Mother Cancer Reportedly Ovarian cancer in her late 20's resulting in a hysterectomy Unknown Cancer unknown family member, breast cancer Female Reproductive History: Para: 1 Spontaneous abortions: Yes Physical Exam 2 Const: COMMON NORMALS: negative for patient oriented x3 EXAM LIMITATIONS: a ltered mental status HENMT: COMMON NORMALS: normocephalic and atraumatic HEAD & SCALP: n ormocephalic and atraumatic Eye: COMMON NORMALS: Equal, round and reactive pupils present and EOMs intact bilaterally PUPIL: Yes Equal, round and reactive pupils present Neck/C-Spine: COMMON NORMALS: full ROM and supple Chest: COMMONS NORMALS: normal inspection of the chest and normal palpation of entire chest wall Resp: COMMON NORMALS: normal respiratory effort, No retractions, No use of accessory muscles and clear to auscultation bilaterally AUSCULTATION: clear to auscultation bilaterally Cardio: COMMON NORMALS: regular rate, regular rhythm and No murmurs present (Cardio) RATE: regular rate RHYTHM: regular rhythm GI: COMMON NORMALS: Normal to inspection, nondistended, normoactive bowel sounds present, Soft to palpation, non-tender and no masses PALPATION: Yes Soft to palpation Extremity: COMMON NORMALS: normal to inspection and full ROM Neuro: COMMON NORMALS: negative for patient oriented x3 Psych: COMMON NORMALS: negative for mental status grossly normal Skin: COMMON NORMALS: no rashes or lesions noted and no wounds GENERAL SKIN EXAM: no rashes or lesions noted Course 2 Vital Signs: Vital signs: Vital Signs Temperature 97.3 F L 09/25/24 15:57 Pulse Rate 88 09/25/24 18:14 Respiratory Rate 16 09/25/24 18:14 Blood Pressure 115/75 09/25/24 18:14 Pulse Oximetry 97 09/25/24 18:14 Oxygen Delivery Me thod Room Air 09/25/24 16:38 MDM - General Adult Medical Decision Making Patient presents here Alterman status her alcohol level here is elevated her AMS is likely due to being intoxicated she is now awake and alert ambulatory she stable for discharge no signs of overdose Medical Records I reviewed the patient's medical records. Lab Data I reviewed the patient's lab results. 09/25/24 16:57 09/25/24 16:57 Radiology Impressions Chest X-Ray 09/25/24 15:59 IMPRESSION: No acute cardiopulmonary disease. Head CT 09/25/24 15:59 IMPRESSION: No acute intracranial abnormality. Laboratory Results WBC 8.38 10^3/uL (3.29-11.43) 09/25/24 16:57 RBC 4.95 10^6/uL (3.85-5.65) 09/25/24 16:57 Hgb 12.90 g/dL (11.27-16.99) 09/25/24 16:57 Hct 40.5 % (36-47) 09/25/24 16:57 MCV 81.8 fl (85-98) L 09/25/24 16:57 MCH 26.1 pg (27-33) L 09/25/24 16:57 MCHC 31.9 g/dL (30-55) 09/25/24 16:57 RDW 17.7 % (12.1-15.1) H 09/25/24 16:57 Plt Count 298 10^3/cmm (157-399) 09/25/24 16:57 MPV 9.2 fL (7.4-10.4) 09/25/24 16:57 Neut % (Auto) 61.3 % 09/25/24 16:57 Lymph % (Auto) 30.7 % 09/25/24 16:57 [place] % (Auto) 5.7 % 09/25/24 16:57 Eos % (Auto) 1.7 % 09/25/24 16:57 Baso % (Auto) 0.4 % 09/25/24 16:57 Neut # (Auto) 5.14 10^3/uL (1.8-7.7) 09/25/24 16:57 Lymph # (Auto) 2.6 10^3/uL (0.8-4.8) 09/25/24 16:57 [place] # (Auto) 0.5 10^3/uL (0.2-0.9) 09/25/24 16:57 Eos # (Auto) 0.1 10^3/uL (0.0-0.8) 09/25/24 16:57 Baso # (Auto) 0.0 10^3/uL (0.0-0.1) 09/25/24 16:57 Nucleated RBC % (auto) 0 % 09/25/24 16:57 Nucleated RBCs # 0.0 /100WBC 09/25/24 16:57 PT 13.10 SECONDS (12.1-14.9) 09/25/24 16:57 INR 0.96 (0.8-1.2) 09/25/24 16:57 Sodium 143 mmol/L (136-145) 09/25/24 16:57 Potassium 3.2 mmol/L (3.5-5.1) L 09/25/24 16:57 Chloride 107 mmol/L (98-107) 09/25/24 16:57 Carbon Dioxide 22 mmol/L (22-29) 09/25/24 16:57 Anion Gap 17.2 (5-19) 09/25/24 16:57 BUN 6 mg/dL (6-20) 09/25/24 16:57 Creatinine 0.9 mg/dL (0.5-0.9) 09/25/24 16:57 GFR Calculation 75.7 mL/min (90-130) L 09/25/24 16:57 Glucose 85 mg/dL (65-115) 09/25/24 16:57 Calculated Osmolality 293 mOsm/kg (285-295) 09/25/24 16:57 Calcium 8.9 mg/dL (8.5-10.5) 09/25/24 16:57 Total Bilirubin 0.2 mg/dL (0.15-1.2) 09/25/24 16:57 AST 21 U/L (0-32) 09/25/24 16:57 ALT 20 U/L (0-33) 09/25/24 16:57 Alkaline Phosphatase 103 U/L (35-105) 09/25/24 16:57 Ammonia 17 umol/L (11-51) 09/25/24 16:57 Total Protein 7.1 g/dL (6.6-8.7) 09/25/24 16:57 Albumin 4.1 g/dL (3.5-5.2) 09/25/24 16:57 Globulin 3.0 g/dL (1.3-4.6) 09/25/24 16:57 TSH 1.20 uIU/mL (0.27-4.20) 09/25/24 16:57 HCG, Qual Negative (Negative) 09/25/24 16:57 Urine Color Yellow (Yellow) 09/25/24 16:25 Urine Appearance Clear (CLEAR) 09/25/24 16:25 Urine pH 6.0 (5-7) 09/25/24 16:25 Ur Specific [place] 1.002 (1.005-1.030) L 09/25/24 16:25 Urine Protein Negative (Negative) 09/25/24 16:25 Urine Glucose (UA) Negative (Normal) 09/25/24 16:25 Urine Ketones Negative (Negative) 09/25/24 16:25 Urine Blood Negative (Negative) 09/25/24 16:25 Urine Nitrate Negative (Negative) 09/25/24 16:25 Urine Bilirubin Negative (Negative) 09/25/24 16:25 Urine Urobilinogen 0.2 mg/dL (Negative) 09/25/24 16:25 Ur Leukocyte Esterase Negative (Negative) 09/25/24 16:25 Urine RBC 0-2 /hpf (0-2) 09/25/24 16:25 Urine WBC 0-5 /hpf (0-5) 09/25/24 16:25 Ur Squamous Epith Cells 0-5 /hpf (0-5) 09/25/24 16:25 Amorphous Sediment Not Reportable 09/25/24 16:25 Urine Bacteria None seen /hpf (NONE) 09/25/24 16:25 Hyaline Casts 0-4 /lpf H 09/25/24 16:25 Salicylates < 0.3 mg/dL (3-10) L 09/25/24 16:57 Urine Opiates Screen Negative ng/mL (Negative) 09/25/24 16:25 Acetaminophen < 5.0 ug/mL (10-30) L 09/25/24 16:57 Ur Barbiturates Screen Negative ng/mL (Negative) 09/25/24 16:25 Ur Phencyclidine Scrn Negative ng/mL (Negative) 09/25/24 16:25 Ur Amphetamines Screen Negative ng/mL (Negative) 09/25/24 16:25 U Benzodiazepines Scrn Negative ng/mL (Negative) 09/25/24 16:25 Urine Cocaine Screen Negative ng/mL (Negative) 09/25/24 16:25 U Marijuana (THC) Screen Positive ng/mL (Negative) H 09/25/24 16:25 Ethyl Alcohol 268 mg/dL (0-10) H 09/25/24 16:57 All radiology interpretation(s) finalized by discharge Discharge Plan Discharge Patient Disposition: Home Clinical Impression: Alcoholic intoxication Condition: Stable Prescriptions: No Action hydroxyzine HCl 50 mg tablet 50 mg PO TID PRN (Reason: anxiety) Qty: 90 3RF albuterol sulfate 90 mcg/actuation HFA aerosol inhaler 2 puff inhalation Q6H PRN (Reason: Shortness Of Breath) loratadine [Allergy Relief (loratadine)] 10 mg tablet 10 mg PO DAILY guaifenesin [Mucinex] 600 mg tablet extended release 12hr 600 mg PO BID metronidazole 500 mg tablet 500 mg PO BID 7 Days Qty: 14 0RF diclofenac sodium 75 mg tablet,delayed release (DR/EC) 75 mg PO Q12H PRN (Reason: pain) Qty: 20 0RF lorazepam [Ativan] 0.5 mg tablet 0.5 mg PO DAILY PRN (Reason: anxiety) Qty: 14 0RF escitalopram oxalate 10 mg tablet 10 mg PO QAM quetiapine 50 mg tablet 50 mg PO BEDTIME dicyclomine 20 mg tablet 20 mg PO QID PRN (Reason: abdominal pain) Qty: 20 0RF ibuprofen 800 mg tablet 800 mg PO TID PRN (Reason: pain) Qty: 60 0RF acetaminophen 325 mg capsule 325 mg PO Q4H PRN (Reason: fever or pain) Qty: 60 0RF Discharge Orders: Discharge ED (Routine); Ordered 09/25/24 Ordered By: Kenny Brown Discharge Diet: Advance as tolerated Discharge Activity: Resume usual activity Patient Instructions: Alcohol Intoxication (ED) Coding Level of Care Code ED Product Safety Tester for Holly Del Cid
[2024-09-25] MEDS: naloxone 0.4 mg/ml SDV IVP (16:08)
--- NOTE | 2024-09-25 16:09 | PC.NURSE ---
pt awake, stating she wants to go home, stating hx of seizures; pt denies any drug use
--- NOTE | 2024-09-25 16:16 | ECG_ITS ---
[facility] Test Date: 2024-09-25 Pat Name: Penelope Henson Department: Room: Gender: Female Bead Preparer: : 2000 Requested By: Kenny Brown Order Number: [id number] Jesus MD: Elayne Brown M.D. Measurements Intervals [place] Rate: 77 P: 49 NE: 169 QRS: 70 QRSD: 104 T: 44 QT: 398 QTc: 452 Interpretive Statements SINUS RHYTHM Compared to ECG 08/20/2024 15:03:52 Sinus arrhythmia no longer present Electronically Signed On 09-26-2024 21:26:03 TINSMITH APPRENTICE by Elayne Brown M.D. [id number]
[2024-09-25 16:39] LABS: Bilirubin Urine Negative (Negative); Blood Urine Negative (Negative); Glucose Urine UA Negative (Normal); Ketones Urine Negative (Negative); Leukocyte Esterase Urine Negative (Negative); Nitrate Urine Negative (Negative); Protein Urine Negative (Negative); Specific Gravity, Urine 1.002 (1.005-1.030); Urine Appearance Clear (CLEAR); Urine Color Yellow (Yellow); Urobilinogen Urine 0.2 mg/dL (Negative)
[2024-09-25 16:41] LABS: Add Urine Microscopic? YES; Bacteria Urine None Seen /hpf; Hyaline Casts Urine 0-4 /lpf; RBC Urine 0-2 /hpf (0-2); Squamous Epithelial Cell Urine 0-5 /hpf (0-5); WBC Urine 0-5 /hpf (0-5)
[2024-09-25 16:45] LABS: Amphetamines Screen Urine Negative (Negative); Barbiturates Screen Urine Negative (Negative); Benzodiazepines Screen Urine Negative (Negative); Cocaine Screen Urine Negative (Negative); Opiate Screen Urine Negative (Negative); PCP Screen Urine Negative (Negative); THC Screen Urine Positive (Negative)
[2024-09-25 17:04] LABS: Basophils % 0.4 %; Eosinophils # 0.1 10^3/uL (0.0-0.8); Eosinophils % 1.7 %; Hematocrit 40.5 % (36-47); Lymphocytes # 2.6 10^3/uL (0.8-4.8); Lymphocytes % 30.7 %; Mean Corpuscular HGB Conc 31.9 g/dL (30-55); Mean Corpuscular Hemoglobin 26.1 pg (27-33); Mean Corpuscular Volume 81.8 fl (85-98); Mean Platelet Volume 9.2 fL (7.4-10.4); Monocytes # 0.5 10^3/uL (0.2-0.9); Monocytes % 5.7 %; Neutrophils # 5.14 10^3/uL (1.8-7.7); Neutrophils % 61.3 %; Nucleated Red Blood Cells % 0 %; Platelet Count 298 10^3/cmm (157-399); Red Blood Count 4.95 10^6/uL (3.85-5.65); Red Cell Distribution Width 17.7 % (12.1-15.1); White Blood Count 8.38 10^3/uL (3.29-11.43)
[2024-09-25 17:21] LABS: INR 0.96 (0.8-1.2)
[2024-09-25 17:23] LABS: HCG, Serum Qual Negative (Negative)
[2024-09-25 17:26] LABS: Ammonia 17 umol/L (11-51)
[2024-09-25 17:50] LABS: Alanine Aminotransferase 20 U/L (0-33); Albumin Level 4.1 g/dL (3.5-5.2); Alcohol Level 268 mg/dL (0-10); Alkaline Phosphatase 103 U/L (35-105); Anion Gap 17.2 (5-19); Aspartate Amino Transferase 21 U/L (0-32); Blood Urea Nitrogen 6 mg/dL (6-20); Calcium 8.9 mg/dL (8.5-10.5); Carbon Dioxide 22 mmol/L (22-29); Chloride 107 mmol/L (98-107); Creatinine Clr Calc Pharmacy 109.4168; Glomerular Filtration Rate 75.7 mL/min (90-130); Glucose 85 mg/dL (65-115); Osmolality Calculated 293 mOsm/kg (285-295); Potassium 3.2 mmol/L (3.5-5.1); Sodium 143 mmol/L (136-145); Total Bilirubin 0.2 mg/dL (0.15-1.2); Total Protein 7.1 g/dL (6.6-8.7)
[2024-09-25 17:51] LABS: Acetaminophen < 5.0 ug/mL (10-30); Salicylate < 0.3 mg/dL (3-10)
== END 2024-09-25 20:39 | disposition home or self-care (01) ==
PROVIDERS: Emergency Provider Emergency Medicine
DX: F10.129 Alcohol abuse with intoxication, unspecified (principal); Y90.8 Blood alcohol level of 240 mg/100 ml or more
CPT/HCPCS: 70450; 71045; 80053; 80306; 80307; 81001; 82140; 84443; 84703; 85025; 85610; 93005; 96374; 96375; 99284; J2310; J3411

== ENCOUNTER → 2024-12-25 14:12 | Outpatient (BNVA) | payer MEDICAID, SELFPAY ==
[2024-11-14 07:44] VITALS: BP 122/80; BMI 34.6
== END ==
PROVIDERS: PCP Family Medicine; Visit Provider Nurse Practitioner Women's Health
DX: N91.2 Amenorrhea, unspecified (principal); N92.6 Irregular menstruation, unspecified
CPT/HCPCS: 81025; 83036; 84439; 84443; 84702

== ENCOUNTER → 2025-01-16 14:52 | Outpatient (BNVA) | payer OTHER, SELFPAY ==
[2024-11-14 07:44] VITALS: BP 122/80; BMI 34.6
== END ==
PROVIDERS: PCP Family Medicine; Visit Provider Nurse Practitioner Psychiatric/Mental Health
DX: F41.1 Generalized anxiety disorder (principal); F43.12 Post-traumatic stress disorder, chronic
CPT/HCPCS: 80061

== ENCOUNTER → 2025-01-21 14:01 | Outpatient (BNVA) | payer OTHER, SELFPAY ==
[2025-01-17 10:06] VITALS: BP 140/85; BMI 34.8
== END ==
PROVIDERS: PCP Family Medicine; Visit Provider Nurse Practitioner Women's Health
DX: Z36.9 Encounter for antenatal screening, unspecified (principal)
CPT/HCPCS: 76801

== ENCOUNTER → 2025-02-03 12:39 | Outpatient (BNVA) | payer MEDICAID, SELFPAY ==
[2025-01-17 10:06] VITALS: BP 140/85; BMI 34.8
== END ==
PROVIDERS: PCP Family Medicine; Visit Provider Nurse Practitioner Women's Health
DX: Z34.80 Encounter for supervision of other normal pregnancy, unspecified trimester (principal); Z34.90 Encounter for supervision of normal pregnancy, unspecified, unspecified trimester
CPT/HCPCS: 80307; 84315; 85025; 86592; 86762; 86803; 86850; 86900; 87086; 87340; 87491; 87591; 87624; 87661; 87806

== ENCOUNTER 2025-02-11 16:13 | Emergency (ER) | payer MEDICAID, SELFPAY ==
[2025-01-17 10:06] VITALS: BP 140/85; BMI 34.8
[2025-02-11 16:24] VITALS: BP 121/81; PULSE 85; RESP 15; TEMP 36.6; O2SAT 99; BMI 34.3
[2025-02-11 17:20] LABS: Basophils % 0.2 %; Eosinophils # 0.1 10^3/uL (0.0-0.8); Eosinophils % 0.6 %; Hematocrit 38.9 % (36-47); Lymphocytes # 2.3 10^3/uL (0.8-4.8); Lymphocytes % 25.2 %; Mean Corpuscular HGB Conc 33.4 g/dL (30-55); Mean Corpuscular Volume 86.8 fl (85-98); Monocytes # 0.6 10^3/uL (0.2-0.9); Monocytes % 6.4 %; Neutrophils # 6.04 10^3/uL (1.8-7.7); Neutrophils % 67.3 %; Nucleated Red Blood Cells % 0 %; Platelet Count 293 10^3/cmm (157-399); Red Blood Count 4.48 10^6/uL (3.85-5.65); Red Cell Distribution Width 15.3 % (12.1-15.1); White Blood Count 8.97 10^3/uL (3.29-11.43)
[2025-02-11 17:33] LABS: Alanine Aminotransferase 33 U/L (0-33); Albumin Level 3.7 g/dL (3.5-5.2); Alkaline Phosphatase 153 U/L (35-105); Anion Gap 16.6 (5-19); Aspartate Amino Transferase 24 U/L (0-32); Blood Urea Nitrogen 5 mg/dL (6-20); Calcium 9.4 mg/dL (8.5-10.5); Carbon Dioxide 22 mmol/L (22-29); Chloride 103 mmol/L (98-107); Creatinine Clr Calc Pharmacy 179.3694; Globulin 3.7 g/dL (1.3-4.6); Glomerular Filtration Rate 149.1 mL/min (90-130); Glucose 76 mg/dL (65-115); Osmolality Calculated 282 mOsm/kg (285-295); Potassium 3.6 mmol/L (3.5-5.1); Sodium 138 mmol/L (136-145); Total Bilirubin 0.2 mg/dL (0.15-1.2); Total Protein 7.4 g/dL (6.6-8.7)
--- NOTE | 2025-02-11 18:20 | ED_ITS ---
HPI - 2 General: Chief complaint: Vaginal Bleeding Stated complaint: spotting, 15 weeks preg, abd pain Time Seen by Provider: 02/11/25 17:41 Source: patient Mode of arrival: ambulatory Limitations: no limitations History of Present Illness: 24-year-old female who is currently 15 w eeks she states she had some slight spotting earlier today is since resolved had some abdominal cramping as well. She denies any heavy bleeding denies any vaginal discharge denies any pain currently. No previous problems with this . Associated symptoms: Reports abdominal pain; Deny headache(s), nausea or vomiting Related Data Home Medications ?Medication ?Instructions ?Recorded ?Confirmed albuterol sulfate 90 mcg/actuation 2 puff inhalation Q 6H PRN 04/09/24 02/03/25 aerosol inhaler Shortness Of Breath docosahexaenoic acid 200 mg mg PO DAILY 12/25/2402/03 capsule ( DHA) Previous Rx's ?Medication ?Instructions ?Recorded acetaminophen 325 mg capsule 325 mg PO Q4H PRN fever o r pain 07/23/24 #60 caps sertraline 50 mg tablet (Zoloft) 50 mg PO .morning #30 tabs 01/20/25 metronidazole 500 mg tablet 500 mg PO BID 7 days #14 t abs 02/03/25 cephalexin 500 mg capsule 500 mg PO TID 7 days #21 cap s 02/11/25 Allergies Allergy/AdvReac Type Severity Reaction Status Date / Time poison malorie extract Allergy ALGY-Rash Verified 02/03/25 12:47 poison oak extract Allergy ALGY-Rash Verified 02/03/25 12:47 paper tape Allergy Mild rash Uncoded 02/03/25 12:47 sushi Allergy Mild ALGY-Hives Uncoded 02/03/25 12:47 Review of Systems 2 Const: Denies: fever(s), chills, body aches or change in appetite ENMT: Denies: throat pain or dental pain Card: Denies: chest pain Resp: Denies: dyspnea GI: Reports: abdominal pain; Denies: nausea, vomiting or diarrhea : Reports: vaginal bleeding Musc: Denies: neck pain or back pain Skin/Breast: Denies: rash Neuro: Denies: headache(s) PFSH ED 2 PFSH: Medical History No pertinent past medical history neghx: dm, thyroid, dvt/pe PCP: none Abnormal uterine bleeding (AUB) Nicotine dependence, cigarettes, uncomplicated Cellulitis Marijuana use, episodic Generalized anxiety disorder Chronic post-traumatic stress disorder Cyclothymic disorder with anxious distress Psychiatric care Surgical History History of hysteroscopy (~07/23/24) Hysteroscopy with D&C History of cone biopsy of cervix (~07/23/24) performed by Dar at [facility] for ASCUS(H)-- pathology demonstrated GIANNI 1 w/o clear margins; low grade dysplasia present at the margins. ECC was negative but suggestive of a fibroid. History of cholecystectomy Previous section Family History Mother Cancer Reportedly Ovarian cancer in her late 20's resulting in a hysterectomy Unknown Cancer unknown family member, breast cancer Social History Smoking and tobacco/nicotine status: current every day tobacco/nicotine user Female Reproductive History: Para: 1 Spontaneous abortions: Yes Physical Exam 2 Const: COMMON NORMALS: no acute distress, patient oriented x3 and healthy appearing HENMT: COMMON NORMALS: normocephalic and atraumatic HEAD & SCALP: n ormocephalic and atraumatic Eye: COMMON NORMALS: conjunctivae normal CONJUNCTIVA: Yes conjunctivae normal Neck/C-Spine: COMMON NORMALS: full ROM and supple Chest: COMMONS NORMALS: normal inspection of the chest Resp: COMMON NORMALS: normal respiratory effort Cardio: COMMON NORMALS: regular rate, regular rhythm and No murmurs present (Cardio) RATE: regular rate RHYTHM: regular rhythm GI: COMMON NORMALS: Normal to inspection, nondistended, normoactive bowel sounds present, Soft to palpation, non-tender and no masses PALPATION: Yes Soft to palpation Extremity: COMMON NORMALS: normal to inspection and full ROM Neuro: COMMON NORMALS: patient oriented x3, moves all extremities and no focal motor deficits Psych: COMMON NORMALS: mental status grossly normal, Normal thought process present and cooperative THOUGHT PROCESS: Normal thought process present Skin: COMMON NORMALS: no rashes or lesions noted and no wounds GENERAL SKIN EXAM: no rashes or lesions noted Course 2 Vital Signs: Vital signs: Vital Signs Temperature 97.8 F 02/11/25 16:24 Pulse Rate 85 02/11/25 16:24 Respiratory Rate 15 02/11/25 16:24 Blood Pressure 121/81 02/11/25 16:24 Pulse Oximetry 99 02/11/25 16:24 Oxygen Delivery Me thod Room Air 02/11/25 16:24 MDM - OB/Uterine Contractions Medical Decision Making Patient presents here with slight vaginal bleeding is since resolved her bedside ultrasound here showed IUP consistent with dates heart rate in the 140s she does have a UTI abdominal exam is benign we will place her antibiotics she is to follow-up with OB return if worsening she understands agrees to plan. Medical Records I reviewed the patient's medical records. Lab Data I reviewed the patient's lab results. 02/11/25 17:06 02/11/25 17:06 Laboratory Results WBC 8.97 10^3/uL (3.29-11.43) 02/11/25 17:06 RBC 4.48 10^6/uL (3.85-5.65) 02/11/25 17:06 Hgb 13.00 g/dL (11.27-16.99) 02/11/25 17:06 Hct 38.9 % (36-47) 02/11/25 17:06 MCV 86.8 fl (85-98) 02/11/25 17:06 MCH 29.0 pg (27-33) 02/11/25 17:06 MCHC 33.4 g/dL (30-55) 02/11/25 17:06 RDW 15.3 % (12.1-15.1) H 02/11/25 17:06 Plt Count 293 10^3/cmm (157-399) 02/11/25 17:06 MPV 10.0 fL (7.4-10.4) 02/11/25 17:06 Neut % (Auto) 67.3 % 02/11/25 17:06 Lymph % (Auto) 25.2 % 02/11/25 17:06 [place] % (Auto) 6.4 % 02/11/25 17:06 Eos % (Auto) 0.6 % 02/11/25 17:06 Baso % (Auto) 0.2 % 02/11/25 17:06 Neut # (Auto) 6.04 10^3/uL (1.8-7.7) 02/11/25 17:06 Lymph # (Auto) 2.3 10^3/uL (0.8-4.8) 02/11/25 17:06 [place] # (Auto) 0.6 10^3/uL (0.2-0.9) 02/11/25 17:06 Eos # (Auto) 0.1 10^3/uL (0.0-0.8) 02/11/25 17:06 Baso # (Auto) 0.0 10^3/uL (0.0-0.1) 02/11/25 17:06 Nucleated RBC % (auto) 0 % 02/11/25 17:06 Nucleated RBCs # 0.0 /100WBC 02/11/25 17:06 Sodium 138 mmol/L (136-145) 02/11/25 17:06 Potassium 3.6 mmol/L (3.5-5.1) 02/11/25 17:06 Chloride 103 mmol/L (98-107) 02/11/25 17:06 Carbon Dioxide 22 mmol/L (22-29) 02/11/25 17:06 Anion Gap 16.6 (5-19) 02/11/25 17:06 BUN 5 mg/dL (6-20) L 02/11/25 17:06 Creatinine 0.5 mg/dL (0.5-0.9) 02/11/25 17:06 GFR Calculation 149.1 mL/min (90-130) H 02/11/25 17:06 Glucose 76 mg/dL (65-115) 02/11/25 17:06 Calculated Osmolality 282 mOsm/kg (285-295) L 02/11/25 17:06 Calcium 9.4 mg/dL (8.5-10.5) 02/11/25 17:06 Total Bilirubin 0.2 mg/dL (0.15-1.2) 02/11/25 17:06 AST 24 U/L (0-32) 02/11/25 17:06 ALT 33 U/L (0-33) 02/11/25 17:06 Alkaline Phosphatase 153 U/L (35-105) H 02/11/25 17:06 Total Protein 7.4 g/dL (6.6-8.7) 02/11/25 17:06 Albumin 3.7 g/dL (3.5-5.2) 02/11/25 17:06 Globulin 3.7 g/dL (1.3-4.6) 02/11/25 17:06 Urine Color Yellow (Yellow) 02/11/25 18:06 Urine Appearance Slightly cloudy (CLEAR) 02/11/25 18:06 Urine pH 5 (5-7) 02/11/25 18:06 Ur Specific [place] 1.020 (1.005-1.030) 02/11/25 18:06 Urine Protein 1+ (Negative) A 02/11/25 18:06 Urine Glucose (UA) Norm (Normal) 02/11/25 18:06 Urine Ketones 1+ (Negative) H 02/11/25 18:06 Urine Blood Neg (Negative) 02/11/25 18:06 Urine Nitrate Positive (Negative) A 02/11/25 18:06 Urine Bilirubin 1+ (Negative) H 02/11/25 18:06 Urine Urobilinogen 1 mg/dL (Negative) H 02/11/25 18:06 Ur Leukocyte Esterase 1+ (Negative) A 02/11/25 18:06 Urine RBC 3-5 /hpf (0-2) 02/11/25 18:06 Urine WBC 11-20 /hpf (0-5) H 02/11/25 18:06 Ur Squamous Epith Cells 51-100 /hpf (0-5) 02/11/25 18:06 Amorphous Sediment Not Reportable 02/11/25 18:06 Urine Bacteria 3+ /hpf (NONE) H 02/11/25 18:06 Hyaline Casts 10.32 /lpf 02/11/25 18:06 Urine Mucus Trace /hpf 02/11/25 18:06 No radiology studies performed this visit Discharge Plan Discharge Patient Disposition: Home Clinical Impression: Acute cystitis, Threatened miscarriage Condition: Stable Prescriptions: New cephalexin 500 mg capsule 500 mg PO TID 7 Days Qty: 21 0RF No Action albuterol sulfate 90 mcg/actuation HFA aerosol inhaler 2 puff inhalation Q6H PRN (Reason: Shortness Of Breath) DHA 200 mg capsule PO DAILY sertraline [Zoloft] 50 mg tablet 50 mg PO .morning Qty: 30 3RF Rx Instructions: Take one tablet every morning metronidazole 500 mg tablet 500 mg PO BID 7 Days Qty: 14 0RF acetaminophen 325 mg capsule 325 mg PO Q4H PRN (Reason: fever or pain) Qty: 60 0RF Discharge Orders: Discharge ED (Routine); Ordered 02/11/25 Ordered By: Kenny Brown Referrals: Yumiko John DO [Primary Care Provider] - Discharge Diet: Advance as tolerated Discharge Activity: Resume usual activity Patient Instructions: Threatened Miscarriage (ED), Urinary Tract Infection in Women (ED) Print Language: Sammarinese Coding Level of Care Code ED Civil Process Server for Holly Del Cid
[2025-02-11 18:33] LABS: Bacteria Urine 3+ /hpf; Hyaline Casts Urine 10.32 /lpf; Squamous Epithelial Cell Urine 51-100 /hpf (0-5)
[2025-02-11 19:06] LABS: Add Urine Microscopic? YES; Bilirubin Urine 1+ (Negative); Blood Urine Neg (Negative); Glucose Urine UA Norm (Normal); Ketones Urine 1+ (Negative); Leukocyte Esterase Urine 1+ (Negative); Nitrate Urine Positive (Negative); Protein Urine 1+ (Negative); UA Slide Review UA Slide Review Perf; Urine Appearance Slightly Cloudy (CLEAR); Urine Color Yellow (Yellow); Urobilinogen Urine 1 mg/dL (Negative); pH Urine 5 (5-7)
[2025-02-11 19:07] LABS: Mucus Urine TRACE /hpf
== END 2025-02-11 19:23 | disposition home or self-care (01) ==
PROVIDERS: Emergency Provider Emergency Medicine; PCP Family Medicine
DX: N30.00 Acute cystitis without hematuria (principal); O20.0 Threatened abortion; Z3A.15 15 weeks gestation of pregnancy
CPT/HCPCS: 36415; 80053; 81001; 85025; 99283

== ENCOUNTER → 2025-02-18 13:00 | Outpatient (BNVA) | payer MEDICAID, SELFPAY ==
[2025-01-17 10:06] VITALS: BP 140/85; BMI 34.8
== END ==
PROVIDERS: PCP Family Medicine; Visit Provider Nurse Practitioner Women's Health
DX: O09.892 Supervision of other high risk pregnancies, second trimester (principal); Z3A.16 16 weeks gestation of pregnancy; R87.810 Cervical high risk human papillomavirus (HPV) DNA test positive
CPT/HCPCS: 76817; 81000; 82105

== ENCOUNTER → 2025-03-04 11:12 | Outpatient (BNVA) | payer MEDICAID, SELFPAY ==
[2025-01-17 10:06] VITALS: BP 140/85; BMI 34.8
== END ==
PROVIDERS: PCP Family Medicine; Visit Provider Nurse Practitioner Women's Health
DX: Z36.9 Encounter for antenatal screening, unspecified (principal)
CPT/HCPCS: 76817

== ENCOUNTER → 2025-03-17 09:10 | Outpatient (BNVA) | payer MEDICAID, SELFPAY ==
[2025-01-17 10:06] VITALS: BP 140/85; BMI 34.8
== END ==
PROVIDERS: PCP Family Medicine; Visit Provider Nurse Practitioner Women's Health
DX: Z34.92 Encounter for supervision of normal pregnancy, unspecified, second trimester (principal)
CPT/HCPCS: 76805; 76817

== ENCOUNTER → 2025-03-27 14:45 | Outpatient (BNVA) | payer MEDICAID, SELFPAY ==
[2025-01-17 10:06] VITALS: BP 140/85; BMI 34.8
== END ==
PROVIDERS: PCP Family Medicine; Visit Provider Obstetrics & Gynecology
DX: R87.810 Cervical high risk human papillomavirus (HPV) DNA test positive (principal); O09.899 Supervision of other high risk pregnancies, unspecified trimester
CPT/HCPCS: 84315

== ENCOUNTER → 2025-04-08 12:32 | Outpatient (BNVA) | payer MEDICAID, SELFPAY ==
[2025-01-17 10:06] VITALS: BP 140/85; BMI 34.8
== END ==
PROVIDERS: PCP Family Medicine; Visit Provider Nurse Practitioner Women's Health
DX: Z36.9 Encounter for antenatal screening, unspecified (principal)
CPT/HCPCS: 76817

== ENCOUNTER → 2025-04-15 08:45 | Outpatient (BNVA) | payer MEDICAID, SELFPAY ==
[2025-01-17 10:06] VITALS: BP 140/85; BMI 34.8
== END ==
PROVIDERS: PCP Family Medicine; Visit Provider Nurse Practitioner Women's Health
DX: Z36.9 Encounter for antenatal screening, unspecified (principal)
CPT/HCPCS: 76817; 82950; 84315

== ENCOUNTER → 2025-04-29 12:24 | Outpatient (BNVA) | payer MEDICAID, SELFPAY ==
[2025-01-17 10:06] VITALS: BP 140/85; BMI 34.8
== END ==
PROVIDERS: PCP Family Medicine; Visit Provider Nurse Practitioner Women's Health
DX: O09.899 Supervision of other high risk pregnancies, unspecified trimester (principal); Z3A.26 26 weeks gestation of pregnancy
CPT/HCPCS: 76817

== ENCOUNTER 2025-05-03 16:06 | Outpatient (CLI) | payer MEDICAID, SELFPAY ==
[2025-01-17 10:06] VITALS: BP 140/85; BMI 34.8
[2025-05-03 16:06] VITALS: BMI 34.5
[2025-05-03 16:42] LABS: Nitrazine Paper, PH Inconclusive
[2025-05-03 16:47] LABS: Bilirubin Urine Negative (Negative); Blood Urine Negative (Negative); Glucose Urine UA Negative (Normal); Ketones Urine 1+ (Negative); Leukocyte Esterase Urine Trace (Negative); Nitrate Urine Negative (Negative); Protein Urine 1+ (Negative); Specific Gravity, Urine 1.028 (1.005-1.030); Urine Appearance Cloudy (CLEAR); Urine Color Dark Yellow (Yellow)
[2025-05-03 16:48] LABS: Actim Prom Negative
[2025-05-03 16:53] LABS: Bacteria Urine 3+ /hpf; Hyaline Casts Urine 0.81 /lpf; Squamous Epithelial Cell Urine 21-50 /hpf (0-5); WBC Urine 0-5 /hpf (0-5)
[2025-05-03 17:01] LABS: UA Slide Review UA Slide Review Perf
[2025-05-03 17:02] LABS: Amphetamines Screen Urine Negative (Negative); Barbiturates Screen Urine Negative (Negative); Benzodiazepines Screen Urine Negative (Negative); Cocaine Screen Urine Negative (Negative); Opiate Screen Urine Negative (Negative); PCP Screen Urine Negative (Negative); THC Screen Urine Positive (Negative)
[2025-05-03 17:09] VITALS: BP 134/83; PULSE 85
--- NOTE | 2025-05-03 17:21 | PC.NURSE ---
This RN attempted to call patient at this time in regards to chosen pharmacy being closed. No answer and no voicemail box set up. This RN will attempt to call again 05/03/25.
== END 2025-05-03 17:19 | disposition home or self-care (01) ==
LOC: OPOB 16:14 → OBGYN 16:15
PROVIDERS: PCP Family Medicine; Visit Provider Obstetrics & Gynecology
DX: O26.899 Other specified pregnancy related conditions, unspecified trimester (principal); Z3A.00 Weeks of gestation of pregnancy not specified; N89.8 Other specified noninflammatory disorders of vagina; R25.2 Cramp and spasm
CPT/HCPCS: 80306; 81001; 83986; 84112; 99211

== ENCOUNTER → 2025-05-13 13:32 | Outpatient (BNVA) | payer MEDICAID, SELFPAY ==
[2025-01-17 10:06] VITALS: BP 140/85; BMI 34.8
== END ==
PROVIDERS: PCP Family Medicine; Visit Provider Nurse Practitioner Women's Health
DX: O09.892 Supervision of other high risk pregnancies, second trimester (principal); Z3A.20 20 weeks gestation of pregnancy
CPT/HCPCS: 76817; 84315; 85025

== ENCOUNTER → 2025-05-23 09:53 | Outpatient (BNVA) | payer MEDICAID, SELFPAY ==
[2025-01-17 10:06] VITALS: BP 140/85; BMI 34.8
== END ==
PROVIDERS: PCP Family Medicine; Visit Provider Nurse Practitioner Women's Health
DX: O09.899 Supervision of other high risk pregnancies, unspecified trimester (principal)
CPT/HCPCS: 84315

== ENCOUNTER → 2025-06-06 07:58 | Outpatient (BNVA) | payer MEDICAID, SELFPAY ==
[2025-01-17 10:06] VITALS: BP 140/85; BMI 34.8
== END ==
PROVIDERS: PCP Family Medicine; Visit Provider Obstetrics & Gynecology
DX: O09.899 Supervision of other high risk pregnancies, unspecified trimester (principal)
CPT/HCPCS: 81000

== ENCOUNTER 2025-06-27 02:46 | Outpatient (CLI) | payer MEDICAID, SELFPAY ==
[2025-01-17 10:06] VITALS: BP 140/85; BMI 34.8
[2025-06-27] VITALS (9 sets, daily range): BP systolic 121–142; BP diastolic 72–91; PULSE 51–87; RESP 16; TEMP 35.3; O2SAT 98; BMI 38.5
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
--- NOTE | 2025-06-27 05:10 | PC.NURSE ---
0510 This RN responded to call light, patient states i need a puke bag or a bucket or something . This RN offers to call Dr. Hurtado for medication to treat nausea, patient states I'm only nauseous because I havent eaten anything in a long time and I'm tired. This RN again states that Dr. Hurtado can be notified and see if he can prescribe treatment. Patient states no, I'm fine but can you call him and see how long until i am able to be discharged. this RN leaves room to call physician and notified Vince Ferguson RN of patient request. Vince Ferguson RN went to spoke to patient about contractions and the possibility of Dr. Hurtado saying he will not allow discharge at this time. Patient states well its not healthy for me to be sitting here when all i need is to eat and sleep, i just want to go home. Patient notified that Dr. Hurtado will be contacted and we will return with doctors orders. [address] Hurtado advised of patient request to go home. Notified of patient still lelo every 1-2 minutes, SVE 140/-3, headache pain 2/10, 0/10 abdominal pain, notified that unable to keep baby on monitor due to patient wanting to sit straight up in bed, patient currently dry heaving (RN offered to call for nausea medication and patient refused), and of patient conversation with nurses. Orders received for discharge at this time.
== END 2025-06-27 05:30 | disposition home or self-care (01) ==
LOC: OPOB 02:46 → OBGYN 02:47
PROVIDERS: PCP Family Medicine; Visit Provider Obstetrics & Gynecology
DX: O26.899 Other specified pregnancy related conditions, unspecified trimester (principal); Z3A.00 Weeks of gestation of pregnancy not specified; R10.11 Right upper quadrant pain
CPT/HCPCS: 59025; 99211; J9999

== ENCOUNTER → 2025-07-03 08:52 | Outpatient (BNVA) | payer MEDICAID, SELFPAY ==
[2025-01-17 10:06] VITALS: BP 140/85; BMI 34.8
== END ==
PROVIDERS: PCP Family Medicine; Visit Provider Obstetrics & Gynecology
DX: O09.899 Supervision of other high risk pregnancies, unspecified trimester (principal)
CPT/HCPCS: 84315; 87081

== ENCOUNTER 2025-07-08 09:27 | Outpatient (CLI) | payer MEDICAID, SELFPAY ==
[2025-01-17 10:06] VITALS: BP 140/85; BMI 34.8
[2025-07-08 09:36] VITALS: BMI 39.4
[2025-07-08 09:39] VITALS: BP 134/82; PULSE 54
[2025-07-08 09:48] LABS: Glucose Urine UA Negative (Normal); Nitrate Urine Negative (Negative); Specific Gravity, Urine 1.013 (1.005-1.030)
[2025-07-08 09:56] LABS: PCP Screen Urine Negative (Negative)
[2025-07-08 10:00] VITALS: BP 135/87; PULSE 60
[2025-07-08 10:19] VITALS: BP 135/95; PULSE 75
[2025-07-08 10:40] VITALS: BP 127/86; PULSE 57
== END 2025-07-08 11:20 | disposition home or self-care (01) ==
LOC: OPOB 09:28 → OBGYN 09:29
PROVIDERS: PCP Family Medicine; Visit Provider Obstetrics & Gynecology
DX: O26.899 Other specified pregnancy related conditions, unspecified trimester (principal); Z3A.00 Weeks of gestation of pregnancy not specified; R10.9 Unspecified abdominal pain
CPT/HCPCS: 59025; 80306; 81001; 99211

== ENCOUNTER → 2025-07-10 07:54 | Outpatient (BNVA) | payer MEDICAID, SELFPAY ==
[2025-01-17 10:06] VITALS: BP 140/85; BMI 34.8
== END ==
PROVIDERS: PCP Family Medicine; Visit Provider Obstetrics & Gynecology
DX: O34.219 Maternal care for unspecified type scar from previous cesarean delivery (principal)
CPT/HCPCS: 84315

== ENCOUNTER 2025-07-24 00:51 | Outpatient (CLI) | payer MEDICAID, SELFPAY ==
[2025-01-17 10:06] VITALS: BP 140/85; BMI 34.8
[2025-07-24] VITALS (14 sets, daily range): BP systolic 122–168; BP diastolic 69–88; PULSE 48–69; RESP 16–17; BMI 39.4
== END 2025-07-24 04:00 | disposition home or self-care (01) ==
LOC: OPOB 00:52 → OBGYN 00:54
PROVIDERS: PCP Family Medicine; Visit Provider Obstetrics & Gynecology
DX: O26.899 Other specified pregnancy related conditions, unspecified trimester (principal); Z3A.00 Weeks of gestation of pregnancy not specified; R10.9 Unspecified abdominal pain
CPT/HCPCS: 59025; 99211

== ENCOUNTER 2025-07-24 11:53 | Inpatient (IN) | payer MEDICAID, SELFPAY ==
[2025-01-17 10:06] VITALS: BP 140/85; BMI 34.8
[2025-07-24] VITALS (70 sets, daily range): BP systolic 113–167; BP diastolic 58–104; PULSE 49–101; RESP 16–18; TEMP 35.9–37.2; O2SAT 97–100; BMI 39.4
[2025-07-24 11:41] LABS: Hematocrit 36.0 % (36-47); Hemoglobin 11.70 g/dL (11.27-16.99); Mean Corpuscular HGB Conc 32.5 g/dL (30-55); Mean Corpuscular Hemoglobin 26.4 pg (27-33); Mean Corpuscular Volume 81.1 fl (85-98); Nucleated Red Blood Cells % 0 %; Platelet Count 218 10^3/cmm (157-399); Red Blood Count 4.44 10^6/uL (3.85-5.65); White Blood Count 12.71 10^3/uL (3.29-11.43)
--- NOTE | 2025-07-24 12:10 | PM.OBGYHP ---
Providers/Chief Complaint Admitting Physician: Manav Hurtado MD Primary STAVE SAW OPERATOR: Manav Hurtado MD Primary Care Provider: Yumiko John DO Chief Complaint: Ctx, ROM HPI STAVE SAW OPERATOR History of Present Illness Penelope Henson is a 25 year old female A3 EDC August 01, 2025 At 38 w 6 d No complications + active movements h/o x one presented to L&D c/o painful uterine contractions Present Details : 5 Para: 1 Labs Rubella: Immune RPR: Negative GBS: Negative Medications/Allergies Home Medications ?Medication ?Instructions ?Recorded ?Confirmed ?Last Taken ?Type pediatric multivitamin 1 tab PO DAILY 05/13/25 07/24/25 07/23/25 History no.226-ferrous sulfate 18 mg chewable tablet (Flintstones with Extra Iron) acetaminophen 325 mg capsule 325 mg PO QID PRN Pain 07/03/25 07/24/25 07/23/25 22:00 History escitalopram oxalate 10 mg tablet See Rx Instructions .Route 07/15/25 07/24/25 Unknown Rx .COMPLEX #30 tabs Allergies Allergy/AdvReac Type Severity Reaction Status Date / Time adhesive tape Allergy Mild ALGY-Rash Verified 07/10/25 07:36 Fish Containing Products Allergy Mild ALGY-Hives Verified 07/10/25 07:36 poison malorie extract Allergy ALGY-Rash Verified 07/10/25 07:36 poison oak extract Allergy ALGY-Rash Verified 07/10/25 07:36 PFSH STAVE SAW OPERATOR PFSH: Medical History (Updated 08/09/25 @ 02:54 by Manav Hurtado MD) History of loop electrosurgical excision procedure (LEEP) of cervix affecting in third trimester GIANNI I (cervical intraepithelial neoplasia I) (~07/23/24) on cone bx for ASCUS(H)-pathology demonstrated GIANNI 1 w/o clear margins; low grade dysplasia present at the margins. ECC was negative but suggestive of a fibroid. No pertinent past medical history neghx: dm, thyroid, dvt/pe PCP: none Abnormal uterine bleeding (AUB) Nicotine dependence, cigarettes, uncomplicated Cellulitis Marijuana use, episodic Generalized anxiety disorder Chronic post-traumatic stress disorder Cyclothymic disorder with anxious distress Psychiatric care Surgical History History of hysteroscopy (~07/23/24) Hysteroscopy with D&C History of cone biopsy of cervix (~07/23/24) performed by Dar at [facility] for ASCUS(H)-- pathology demonstrated GIANNI 1 w/o clear margins; low grade dysplasia present at the margins. ECC was negative but suggestive of a fibroid. History of cholecystectomy Previous section Family History Mother Cancer Reportedly Ovarian cancer in her late 20's resulting in a hysterectomy Unknown Cancer unknown family member, breast cancer Social History Smoking and tobacco/nicotine status: current every day tobacco/nicotine user (Vape, Tobacco, Marijuana use) Alcohol intake: former Substance/Drug Use: current Adopted: No Caregiver/support person: No Lives independently: Yes Household members: significant other Housing: Manufactured/Mobile home Marital status: Single Number of children: 7 Highest education level completed: High School Graduate service: No Current occupational status: unemployed Current occupational exposures/hazards: No Pets and animals: Yes Pets & animals: cat(s) and dog(s) Leisure activites: exercise and other Leisure activities details: going to the river Sexually active: Yes Do you think of yourself as: Straight/Heterosexual Current gender identity: Female Shirley/Methodist: None Special shirley needs: No Agree to transfusion: Yes Personal Safety: Do you feel safe at home: Yes History History History 5 Term 1 0 Miscarriages/Ectopic 3 Living Children 1 Care TATIANA Calculator Estimated Delivery Date Method Current WG Current Estimate 08/01/25 Ultrasound #1 41w 1d Specific Issues/Plans Previous --emergent primary LTCS for distress Desires sterilization--NEEDS COUNSELING AND PAPERS SIGNED AT 32 WEEKS NICOTINE USE--occasional usage MARIJUANA USE--still using; not motivated to quit DEPRESSION/ANXIETY-did not tolerate Zoloft; really not motivated to help herself; started Lexapro 10 mg at 30 weeks HX LEEP - cx length 16-28wks---normal values HPV 18 POSITIVE; colpo at 20 wks was deferred-- COTEST AT PP Vitals/I&O/Wt Last Vital Signs Temp 98.3 F 07/25/25 14:37 Pulse 62 07/25/25 14:37 Resp 17 07/25/25 14:37 BP 145/97 07/25/25 14:37 Pulse Ox 98 07/25/25 14:37 O2 Del Method Room Air 07/25/25 02:20 Physical Exam Narrative: Weight 201 lbs; 5? General awake, alert VS normal Lungs: clear Cor: RRR FH 37 cm, cephalic Cervix: 8 cm / 100 / -2 Ext: no edema Urinary Catheter Management: Coronado Latex: Cath Placed During This Visit: yes, but has since been removed by the nurse Reason for Continuing Indwelling Catheter: Decision to DC Catheter Urinary Catheter Date of Insertion: 07/24/25 Urinary Catheter Time of Insertion: 13:10 Date Urinary Catheter Removed: 07/24/25 Time Urinary Catheter Discontinued: 18:15 Data 07/25/25 06:20 Results Labs OB ([facility]): Obstetrics 03/17/25 Blood Type O Positive 02/03/25 Antibody Screen Negative 02/03/25 Hct, (36-47) 29.1 % L 07/25/25 Hgb, (11.27-16.99) 9.20 g/dL L 07/25/25 Rho(D) Type Rh positive 02/03/25 Plt Count, (157-399) 151 10^3/cmm L Δ 07/25/25 Hep Bs Antigen, (Nonreactive) Non-reactive 02/03/25 Hep B Core IgM Ab, (Nonreactive) Non-reactive 03/20/24 Hepatitis C Antibody, (Nonreactive) Non-reactive 02/03/25 Rubella IgG Antibody, (0.0-10.0) 91.3 IU/mL H 02/03/25 RPR, (Nonreactive) Nonreactive 02/03/25 HIV 1&2 Ab & HIV 1 Ag, (Non-Reactiv) Non-reactive 02/03/25 TSH, (0.27-4.20) 0.59 uIU/mL 12/25/24 Free T4, (0.82-1.77) 1.07 ng/dL 12/25/24 C.trachomatis RNA (TMA), (NOT DETECTED) Not detected 03/20/24 N.gonorrhoeae RNA (TMA), (NOT DETECTED) Not detected 03/20/24 Chlamydia/GC Comment See note 03/20/24 Glucose 1 Hr 50 gm, (85-140) 114 mg/dL 04/15/25 Hemoglobin A1c, (4.0-6.0) 4.5 % 12/25/24 Ser , Semi-Qnt 64531.00 mIU/mL 12/25/24 HCG, Qual, (Negative) Positive H 12/25/24 Urine Opiates Screen, (Negative) Negative ng/mL 07/24/25 Ur Barbiturates Screen, (Negative) Negative ng/mL 07/24/25 Ur Phencyclidine Scrn, (Negative) Negative ng/mL 07/24/25 Ur Amphetamines Screen, (Negative) Negative ng/mL 07/24/25 U Benzodiazepines Scrn, (Negative) Negative ng/mL 07/24/25 Urine Cocaine Screen, (Negative) Negative ng/mL 07/24/25 U Marijuana (THC) Screen, (Negative) Positive ng/mL H 07/24/25 Micro Urine Specimen 02/03/25 Pap Smear Interpret See note 02/03/25 Prolactin, (4.8-23.3) 23.41 ng/mL H 04/23/24 A&P Assessment and plan 1. Active labor: 38 w 6 d h/o x one active labor patient was scheduled for repeat however, now patient wants trial of labor, vaginal delivery after Risks explained to patient The risk of a uterine rupture during a TOLAC/ in someone who has had a prior incision on the lower, noncontracting part of the uterus, is estimated to be around 1-3%. Vaginal after () is associated with a higher risk of harm to the baby. In particular, she was informed that if the uterus ruptures during a TOLAC/, even if the baby can be delivered via emergency in the most expeditious manner, it may not be sufficient to prevent the of or permanent brain injury to the baby. Other risks include, but not limited to, a uterine rupture may also result in excessive bleeding which can lead to severe injury to the patient, such as hysterectomy, and other consequences. Patient understands the risks and still wants to proceed with a trial of labor. PDMP PDMP Reviewed: Not Reviewed Attestations Medical Necessity Statement*: patient at 38 w 6 d, with active labor Coding Level of Care Code Acute Code for Chg Fwd Diagnoses Active labor
[2025-07-24] MEDS: ROPivacaine premix 200 MG/100 ML PREMIX 13 MG EPIDURAL (12:48)
--- NOTE | 2025-07-24 13:01 | ANES.PREANE2 ---
Pre-Anesthetic Assessment Height/Weight: Height 1.52 m Weight 91.6 kg Pulse BP Pulse Ox O2 Del Method 51 L 131/77 99 Room Air 07/24/25 12:59 07/24/25 12:59 07/24/25 12:55 07/24/25 11:44 Preop Diagnosis: intrauterine labor epidural Familial anesthetic complications: none Was Beta Pineda taken within 24 hours: N/A Was Clonidine taken within 24 hours: N/A Social No alcohol Exam alert, oriented x 3 and clear to auscultation bilaterally Airway Mallampati: Class II Dentition: false History/ROS No significant history except as noted Pulmonary Asthma CV/HEM None reported None reported Hepatic None reported GI None reported Metabolic None reported Musc/skel None reported Neuropsych None reported Anesthetic Plan ASA status: 2 Anesthesia: Anesthesia Evaluation and Regional (specify below) (epidural ) Risk of > 500 ml blood loss (7ml/kg in children): Yes, adequate IV access and fluids planned Medications/Allergies Home Medications ?Medication ?Instructions ?Recorded ?Confirmed ?Last Taken ?Type pediatric multivitamin 1 tab PO DAILY 05/13/25 07/24/25 07/23/25 History no.226-ferrous sulfate 18 mg chewable tablet (Flintstones with Extra Iron) acetaminophen 325 mg capsule 325 mg PO QID PRN Pain 07/03/25 07/24/25 07/23/25 22:00 History escitalopram oxalate 10 mg tablet See Rx Instructions .Route 07/15/25 07/24/25 Unknown Rx .COMPLEX #30 tabs Allergies Allergy/AdvReac Type Severity Reaction Status Date / Time adhesive tape Allergy Mild ALGY-Rash Verified 07/10/25 07:36 Fish Containing Products Allergy Mild ALGY-Hives Verified 07/10/25 07:36 poison malorie extract Allergy ALGY-Rash Verified 07/10/25 07:36 poison oak extract Allergy ALGY-Rash Verified 07/10/25 07:36 Current Medications Generic Name Dose Route Start Last Admin Trade Name Freq PRN Reason Stop Dose Admin Lactated Ringer's 1,000 mls @ 999 mls/hr 07/24/25 11:41 07/24/25 12:48 Lactated Ringers IV 999 mls/hr .Q1H1M PRN Administration See label comments Ropivacaine 200 mg in 100 mls @ 10 mls/hr 07/24/25 11:45 07/24/25 12:48 Naropin Premix EPIDURAL 13 mls/hr .Q10H DANTE Administration [facility] Anesthesia Medical History (Updated 07/10/25 @ 09:03 by Issa Ellison MD) History of loop electrosurgical excision procedure (LEEP) of cervix affecting in third trimester GIANNI I (cervical intraepithelial neoplasia I) (~07/23/24) on cone bx for ASCUS(H)-pathology demonstrated GIANNI 1 w/o clear margins; low grade dysplasia present at the margins. ECC was negative but suggestive of a fibroid. No pertinent past medical history neghx: dm, thyroid, dvt/pe PCP: none Abnormal uterine bleeding (AUB) Nicotine dependence, cigarettes, uncomplicated Cellulitis Marijuana use, episodic Generalized anxiety disorder Chronic post-traumatic stress disorder Cyclothymic disorder with anxious distress Psychiatric care Surgical History History of hysteroscopy (~07/23/24) Hysteroscopy with D&C History of cone biopsy of cervix (~07/23/24) performed by Dar at [facility] for ASCUS(H)-- pathology demonstrated GIANNI 1 w/o clear margins; low grade dysplasia present at the margins. ECC was negative but suggestive of a fibroid. History of cholecystectomy Previous section Family History Mother Cancer Reportedly Ovarian cancer in her late 20's resulting in a hysterectomy Unknown Cancer unknown family member, breast cancer Social History Smoking and tobacco/nicotine status: current every day tobacco/nicotine user (Vape, Tobacco, Marijuana use) Alcohol intake: former Substance/Drug Use: current Adopted: No Caregiver/support person: No Lives independently: Yes Household members: significant other Housing: Manufactured/Mobile home Marital status: Single Number of children: 7 Highest education level completed: High School Graduate service: No Current occupational status: unemployed Current occupational exposures/hazards: No Pets and animals: Yes Pets & animals: cat(s) and dog(s) Leisure activites: exercise and other Leisure activities details: going to the river Sexually active: Yes Do you think of yourself as: Straight/Heterosexual Current gender identity: Female Shirley/Oriental Orthodox: None Special shirley needs: No Agree to transfusion: Yes Female Reproductive History : 5 Para: 1 Spontaneous abortions: Yes Data Anesthesia 07/24/25 11:35 Short CBC 07/24/25 Range/Units 11:35 WBC 12.71 H (3.29-11.43) 10^3/uL Hgb 11.70 (11.27-16.99) g/dL Hct 36.0 (36-47) % MCV 81.1 L (85-98) fl Plt Count 218 (157-399) 10^3/cmm Neut % (Auto) 88.2 % Neut # (Auto) 11.22 H (1.8-7.7) 10^3/uL Blood Bank 07/24/25 11:35 Blood Type Cancelled Rho(D) Type Cancelled Antibody Screen Cancelled Anesthesia Procedures Epidural Time Out Performed: Yes Consents Signed: Procedure Consent Consent: requested by attending/covering physician, from patient, risks and benefits reviewed and patient agrees to proceed Lumbar Level: L4-L5 Epidural position: sitting Epidural procedure: sterile prep of area, 1% lidocaine to numb the area, 18 g needle, negative for paresthesia passed, neg for paresthesia, test dose given, 1.5% xylocaine 1:200k epi, 0.2% Ropivacaine bolus ml (5), placed PCEA, no systemic response, sterile dressing applied, L.U.D. no apparent complications and 0.2% Ropiavacaine @ mls/hr (13) Additional Comments: EZIO 5cm , catheter easily threaded to 5cm in the sapce. VS montored throughout and remained stable, pt educated on CABIN FURNISHINGS INSTALLER and reporting adequate pain relief with epidural
[2025-07-24] MEDS: ondansetron 2 mg/ML SDV 2 mL 4 MG IVP (13:25)
[2025-07-24 14:03] LABS: PCP Screen Urine Negative (Negative)
[2025-07-24] MEDS: alum-mag-hydroxide-sime 30 mL UDC PO (15:30)
[2025-07-24] MEDS: oxytocin 30 UNIT/500 ML BAG IV (16:13)
--- NOTE | 2025-07-24 18:50 | PM.DELIVERY ---
Delivery Note: Date of delivery: July 24, 2025 Pre-delivery diagnoses: 38 w 6 d previous x one active labor cervix at 7 cm desires trial of labor after Post-delivery diagnoses: 38 w 6 d previous x one active labor cervix at 7 cm desires trial of labor after pitocin augmentation vaginal delivery repair of first-degree perineal laceration Procedure: pitocin augmentation vaginal delivery repair of first-degree perineal laceration Op report anesthesia: Epidural Delivering Physician: Manav Hurtado MD Estimated blood loss (mL): 300 Findings: , male cord gases obtained no episiotomy first-degree perineal laceration repaired EBL 300 cc no complications Pre-Delivery Course: normal labor course fetus reassuring throughout Delivery: vaginal Post-Delivery Status: good History History History 5 Term 1 0 Miscarriages/Ectopic 3 Living Children 1 A&P Assessment and plan 1. Vaginal delivery: PDMP PDMP Reviewed: Not Reviewed Coding Level of Care Code Acute Code for Chg Fwd Diagnoses Vaginal delivery O80
[2025-07-24 20:01] LABS: High Risk PP Hemorrhage BBK Notified
[2025-07-24] MEDS: benzocaine-menthol 78 gm Canister 1 SPRAY TOPICAL (20:17)
[2025-07-25 00:37] VITALS: BP 124/70; PULSE 65; RESP 16; O2SAT 98
[2025-07-25 02:20] VITALS: BP 121/84; PULSE 65; RESP 17; O2SAT 97
[2025-07-25 06:38] LABS: Hematocrit 29.1 % (36-47); Hemoglobin 9.20 g/dL (11.27-16.99); Mean Corpuscular HGB Conc 31.6 g/dL (30-55); Mean Corpuscular Hemoglobin 26.2 pg (27-33); Mean Corpuscular Volume 82.9 fl (85-98); Platelet Count 151 10^3/cmm (157-399); Red Blood Count 3.51 10^6/uL (3.85-5.65); White Blood Count 15.77 10^3/uL (3.29-11.43)
--- NOTE | 2025-07-25 08:00 | ANE.PACU2 ---
Inpatient post-anesthesia follow up: Airway intact: Yes Vital signs: Temperature 98.3 F Pulse Rate 62 Respiratory Rate 17 Blood Pressure 145/97 Pulse Oximetry 98 Oxygen Delivery Me thod Room Air Oxygen Flow Rate Fraction of Inspir ed Oxygen Hydration adequate: Yes Nausea and vomiting: No Pain level: 1 Mental status: Baseline Epidural Start/End: Epidural Start Date: 07/24/25 Epidural Start Time: 12:25 Epidural End Date: 07/24/25 Epidural End Time: 18:30
[2025-07-25] MEDS: PRENATAL VIT NO.130/IRON/FOLIC 1 EACH TABLET PO (10:49)
[2025-07-25 11:15] VITALS: BP 153/99; PULSE 89; RESP 16; TEMP 36.8
--- NOTE | 2025-07-25 14:15 | P.PN_ITS ---
SUPERVISOR PUMPING STATION Subjective 2 Subjective: Interval history: no c/o no bleeding, pain eating, voiding, ambulating well no dizziness, weakness, palpitations, shortness of breath caring for without any problems Labor: Station: +2 Amniotic Membrane Status: Ruptured Monitor Mode: Palpation Contraction Pattern: Irregular Status: Category I Vitals/I&O/Wt Last Vital Signs Temp 98.3 F 07/25/25 14:37 Pulse 62 07/25/25 14:37 Resp 17 07/25/25 14:37 BP 145/97 07/25/25 14:37 Pulse Ox 98 07/25/25 14:37 O2 Del Method Room Air 07/25/25 02:20 Physical Exam 2 Narrative: afebrile, VS normal comfortable, awake, alert Lungs: clear Cor: RRR Abd: soft, nontender. fundus firm Ext: no edema; nontender Hgb 9.2 Urinary Catheter Management: Coronado Latex: Cath Placed During This Visit: yes, but has since been removed by the nurse Reason for Continuing Indwelling Catheter: Decision to DC Catheter Urinary Catheter Date of Insertion: 07/24/25 Urinary Catheter Time of Insertion: 13:10 Date Urinary Catheter Removed: 07/24/25 Time Urinary Catheter Discontinued: 18:15 Data 07/25/25 06:20 A&P Assessment and plan 1. Vaginal delivery: PPD #1 doing well discharge to home today instructions and precautions given call/return if fever, chills, headache, blurry vision, nausea, vomiting, abdominal pain; vaginal bleeding or discharge; shortness of breath, chest pain, leg pains or swelling; inability to void, perineal pain or swelling; feelings of depression or mood changes; thoughts of suicide or harming others; inability to care for baby. f/u in 6 weeks or PRN 2. Anemia: encouraged iron 1-2 tabs / day eat iron- and protein-rich foods call or go to ER if dizziness, weakness, chest pain, palpitations, shortness of breath PDMP PDMP Reviewed: Not Reviewed Attestations 2 Medical Necessity Statement*: patient s/p vaginal delivery, plan to discharge to home today Coding Level of Care Code Acute Code for Chg Fwd Diagnoses Vaginal delivery O80 Anemia D64.9
--- NOTE | 2025-07-25 14:20 | PM.OBGYDC ---
Discharge Providers INSTRUMENT INSTALLER Date of Admission: 07/24/25 11:53 Date of Discharge: 07/25/25 Attending Provider at Admission: Manav Hurtado MD Attending Provider at Discharge: Manav Hurtado MD Consults: none Primary INSTRUMENT INSTALLER: Manav Hurtado MD Primary Care Provider: Yumiko John DO Diagnoses at Discharge Discharge Diagnosis 1. Vaginal delivery: Details from hospital stay: 24 y.o. A3 EDC August 01, 2025 At 38 w 6 d No complications + active movements h/o x one presented to L&D c/o painful uterine contractions cervix was at 7-8 cm patient wanted trial of labor, vaginal delivery after patient progressed to complete dilatation fetus was reassuring throughout patient delivered vaginally without any complications A first-degree perineal laceration was repaired patient did well and was discharged to home on the first day 2. Anemia: Reason for Visit Reason for Visit: Ctx, ROM Brief History: 24 y.o. A3 EDC August 01, 2025 At 38 w 6 d No complications + active movements h/o x one presented to L&D c/o painful uterine contractions Hospital Course Hospital Course 24 y.o. A3 EDC August 01, 2025 At 38 w 6 d No complications + active movements h/o x one presented to L&D c/o painful uterine contractions cervix was at 7-8 cm patient wanted trial of labor, vaginal delivery after patient progressed to complete dilatation fetus was reassuring throughout patient delivered vaginally without any complications A first-degree perineal laceration was repaired patient did well and was discharged to home on the first day Information Peripartum Data: Infant Delivery Method: Vaginal Laceration description: Perineal - 1st Degree Episiotomy description: None complications: none Physical Exam Narrative: afebrile, VS normal comfortable, awake, alert Lungs: clear Cor: RRR Abd: soft, nontender. fundus firm Ext: no edema; nontender Hgb 9.2 Urinary Catheter Management: Coronado Latex: Cath Placed During This Visit: yes, but has since been removed by the nurse Reason for Continuing Indwelling Catheter: Decision to DC Catheter Urinary Catheter Date of Insertion: 07/24/25 Urinary Catheter Time of Insertion: 13:10 Date Urinary Catheter Removed: 07/24/25 Time Urinary Catheter Discontinued: 18:15 History History History 5 Term 1 0 Miscarriages/Ectopic 3 Living Children 1 Discharge Data Studies Completed and Pending Laboratory Results WBC 15.77 10^3/uL (3.29-11.43) H 07/25/25 06:20 RBC 3.51 10^6/uL (3.85-5.65) L 07/25/25 06:20 Hgb 9.20 g/dL (11.27-16.99) L 07/25/25 06:20 Hct 29.1 % (36-47) L 07/25/25 06:20 MCV 82.9 fl (85-98) L 07/25/25 06:20 MCH 26.2 pg (27-33) L 07/25/25 06:20 MCHC 31.6 g/dL (30-55) 07/25/25 06:20 RDW 15.3 % (12.1-15.1) H 07/25/25 06:20 Plt Count 151 10^3/cmm (157-399) L D 07/25/25 06:20 MPV 10.9 fL (7.4-10.4) H 07/25/25 06:20 Neut % (Auto) 88.2 % 07/24/25 11:35 Lymph % (Auto) 8.7 % 07/24/25 11:35 Harding % (Auto) 2.5 % 07/24/25 11:35 Eos % (Auto) 0.0 % 07/24/25 11:35 Baso % (Auto) 0.1 % 07/24/25 11:35 Neut # (Auto) 11.22 10^3/uL (1.8-7.7) H 07/24/25 11:35 Lymph # (Auto) 1.1 10^3/uL (0.8-4.8) 07/24/25 11:35 Harding # (Auto) 0.3 10^3/uL (0.2-0.9) 07/24/25 11:35 Eos # (Auto) 0.0 10^3/uL (0.0-0.8) 07/24/25 11:35 Baso # (Auto) 0.0 10^3/uL (0.0-0.1) 07/24/25 11:35 Nucleated RBC % (auto) 0 % 07/24/25 11:35 Nucleated RBCs # 0.0 /100WBC 07/24/25 11:35 Urine Opiates Screen Negative ng/mL (Negative) 07/24/25 13:00 Ur Barbiturates Screen Negative ng/mL (Negative) 07/24/25 13:00 Ur Phencyclidine Scrn Negative ng/mL (Negative) 07/24/25 13:00 Ur Amphetamines Screen Negative ng/mL (Negative) 07/24/25 13:00 U Benzodiazepines Scrn Negative ng/mL (Negative) 07/24/25 13:00 Urine Cocaine Screen Negative ng/mL (Negative) 07/24/25 13:00 U Marijuana (THC) Screen Positive ng/mL (Negative) H 07/24/25 13:00 Blood Type Cancelled 07/24/25 11:35 Rho(D) Type Cancelled 07/24/25 11:35 Antibody Screen Cancelled 07/24/25 11:35 Procedures Performed vaginal delivery repair of first-degree perineal laceration Vitals Last Vital Signs Temp 98.3 F 07/25/25 14:37 Pulse 62 07/25/25 14:37 Resp 17 07/25/25 14:37 BP 145/97 07/25/25 14:37 Pulse Ox 98 07/25/25 14:37 O2 Del Method Room Air 07/25/25 02:20 Results Labs OB ([facility]): Obstetrics US 03/17/25 Blood Type O Positive 02/03/25 Antibody Screen Negative 02/03/25 Hct, (36-47) 29.1 % L 07/25/25 Hgb, (11.27-16.99) 9.20 g/dL L 07/25/25 Rho(D) Type Rh positive 02/03/25 Plt Count, (157-399) 151 10^3/cmm L Δ 07/25/25 Hep Bs Antigen, (Nonreactive) Non-reactive 02/03/25 Hep B Core IgM Ab, (Nonreactive) Non-reactive 03/20/24 Hepatitis C Antibody, (Nonreactive) Non-reactive 02/03/25 Rubella IgG Antibody, (0.0-10.0) 91.3 IU/mL H 02/03/25 RPR, (Nonreactive) Nonreactive 02/03/25 HIV 1&2 Ab & HIV 1 Ag, (Non-Reactiv) Non-reactive 02/03/25 TSH, (0.27-4.20) 0.59 uIU/mL 12/25/24 Free T4, (0.82-1.77) 1.07 ng/dL 12/25/24 C.trachomatis RNA (TMA), (NOT DETECTED) Not detected 03/20/24 N.gonorrhoeae RNA (TMA), (NOT DETECTED) Not detected 03/20/24 Chlamydia/GC Comment See note 03/20/24 Glucose 1 Hr 50 gm, (85-140) 114 mg/dL 04/15/25 Hemoglobin A1c, (4.0-6.0) 4.5 % 12/25/24 Ser , Semi-Qnt 00899.00 mIU/mL 12/25/24 HCG, Qual, (Negative) Positive H 12/25/24 Urine Opiates Screen, (Negative) Negative ng/mL 07/24/25 Ur Barbiturates Screen, (Negative) Negative ng/mL 07/24/25 Ur Phencyclidine Scrn, (Negative) Negative ng/mL 07/24/25 Ur Amphetamines Screen, (Negative) Negative ng/mL 07/24/25 U Benzodiazepines Scrn, (Negative) Negative ng/mL 07/24/25 Urine Cocaine Screen, (Negative) Negative ng/mL 07/24/25 U Marijuana (THC) Screen, (Negative) Positive ng/mL H 07/24/25 Micro Urine Specimen 02/03/25 Pap Smear Interpret See note 02/03/25 Prolactin, (4.8-23.3) 23.41 ng/mL H 04/23/24 Discharge Plan Discharge Patient Disposition: Home Condition: Stable Prescriptions: Continued acetaminophen 325 mg capsule 325 mg PO QID PRN (Reason: Pain) Flintstones with Extra Iron 18 mg iron tablet,chewable 1 tab PO DAILY Patient Comments: with folic acid escitalopram oxalate 10 mg tablet See Rx Instructions .ROUTE .COMPLEX Qty: 30 1RF Dose Instruction: TAKE ONE TABLET BY MOUTH daily Rx Instructions: TAKE ONE TABLET BY MOUTH daily Discharge Order = DC NOW: Discharge Order (Routine); Ordered 07/25/25 Ordered By: Manav Hurtado Referrals: Manav Hurtado MD [Physician, INSTRUMENT INSTALLER] - 09/04/25 8:15 am Referral Note: * Your 6 week post op appointment is with Dr. Hurtado on 09/04/2025 Discharge Diet: Usual diet Discharge Activity: Increase activity as tolerated Patient Instructions: Laxative, Stool Softeners (By mouth), Abnormal (Dysfunctional) Uterine Bleeding (DC), and Nipple Soreness (DC), and Breast Engorgement (DC), and Your Diet (DC), Bleeding (DC), Vaginal Delivery (DC), OB Anesthesia Instructions, OB Food/Drug Interaction Guide, OB Home Care Instructions, OB Care at Home, Opioid Safety, OB Proud Parent Packet, Patient Portal & Arnold Instructions Discharge Attestations INSTRUMENT INSTALLER Time Spent in Discharge Care*: less than 30 min Coding Level of Care Code Acute Code for Chg Fwd Diagnoses Vaginal delivery O80 Anemia D64.9
[2025-07-25 14:37] VITALS: BP 145/97; PULSE 62; RESP 17; TEMP 36.8; O2SAT 98
== END 2025-07-25 14:35 | disposition home or self-care (01) | DRG 806 ==
LOC: OPOB 11:54 → OBGYN 11:54
PROVIDERS: Admitting Provider Obstetrics & Gynecology; PCP Family Medicine; Visit Provider Obstetrics & Gynecology
DX: O34.211 Maternal care for low transverse scar from previous cesarean delivery (principal); O98.32 Other infections with a predominantly sexual mode of transmission complicating childbirth; Z37.0 Single live birth; O99.324 Drug use complicating childbirth; N85.8 Other specified noninflammatory disorders of uterus; Z3A.38 38 weeks gestation of pregnancy; O99.344 Other mental disorders complicating childbirth; F41.9 Anxiety disorder, unspecified; F32.A Depression, unspecified; F12.90 Cannabis use, unspecified, uncomplicated; O99.334 Smoking (tobacco) complicating childbirth; F17.290 Nicotine dependence, other tobacco product, uncomplicated; A63.0 Anogenital (venereal) warts; O70.0 First degree perineal laceration during delivery; J45.909 Unspecified asthma, uncomplicated; O99.52 Diseases of the respiratory system complicating childbirth; F43.12 Post-traumatic stress disorder, chronic; O90.81 Anemia of the puerperium; D64.9 Anemia, unspecified
CPT/HCPCS: 36415; 51702; 59025; 59409; 80306; 85025; 85027; 96374; 99211; J2405; J2590; J2795; J7120; J7121; J9999

== ENCOUNTER 2025-08-21 16:34 | Emergency (ER) | payer MEDICAID, SELFPAY ==
[2025-01-17 10:06] VITALS: BP 140/85; BMI 34.8
--- NOTE | 2025-08-21 16:39 | W.ED.PSYCHS ---
HPI - Psych General: Chief Complaint: Psychiatric Symptoms Stated Complaint: SI Pt states she is feeling depressed and anxiaty Time Seen by Provider: 08/21/25 16:39 History of Present Illness: Depression and anxiety. Patient says she is breast-feeding her baby and she does not really have any intention of committing suicide. She said 1 time she had a thought of it and that she thought of her baby and that went away. She feels like she needs to be seen and medications need to be started and that she does not need to be admitted right now. Related Data Home Medications ?Medication ?Instructions ?Recorded ?Confirmed pediatric multivitamin 1 tab PO DAILY 05/13/25 07/24/25 no.226-ferrous sulfate 18 mg chewable tablet (Flintstones with Extra Iron) acetaminophen 325 mg capsule 325 mg PO QID PRN Pain 07/03/25 07/24/25 Previous Rx's ?Medication ?Instructions ?Recorded escitalopram oxalate 10 mg tablet See Rx Instructions .Route 07/15/25 .COMPLEX #30 tabs Allergies Allergy/AdvReac Type Severity Reaction Status Date / Time adhesive tape Allergy Mild ALGY-Rash Verified 07/10/25 07:36 Fish Containing Products Allergy Mild ALGY-Hives Verified 07/10/25 07:36 poison malorie extract Allergy ALGY-Rash Verified 07/10/25 07:36 poison oak extract Allergy ALGY-Rash Verified 07/10/25 07:36 Review of Systems Narrative: Constitutional symptoms: Negative except as documented in HPI. Skin symptoms: Negative except as documented in HPI. Eye symptoms: Negative except as documented in HPI. ENMT symptoms: Negative except as documented in HPI. Respiratory symptoms: Negative except as documented in HPI. Cardiovascular symptoms: Negative except as documented in HPI. Gastrointestinal symptoms: Negative except as documented in HPI. Genitourinary symptoms: Negative except as documented in HPI. Musculoskeletal symptoms: Negative except as documented in HPI. Neurologic symptoms: Negative except as documented in HPI. Psychiatric symptoms: Negative except as documented in HPI. Endocrine symptoms: Negative except as documented in HPI. [facility] ED PFSH: Medical History (Updated 08/21/25 @ 16:44 by Maru Weaver MD) History of loop electrosurgical excision procedure (LEEP) of cervix affecting in third trimester GIANNI I (cervical intraepithelial neoplasia I) (~07/23/24) on cone bx for ASCUS(H)-pathology demonstrated GIANNI 1 w/o clear margins; low grade dysplasia present at the margins. ECC was negative but suggestive of a fibroid. No pertinent past medical history neghx: dm, thyroid, dvt/pe PCP: none Abnormal uterine bleeding (AUB) Nicotine dependence, cigarettes, uncomplicated Cellulitis Marijuana use, episodic Generalized anxiety disorder Chronic post-traumatic stress disorder Cyclothymic disorder with anxious distress Psychiatric care Surgical History History of hysteroscopy (~07/23/24) Hysteroscopy with D&C History of cone biopsy of cervix (~07/23/24) performed by Dar at [facility] for ASCUS(H)-- pathology demonstrated GIANNI 1 w/o clear margins; low grade dysplasia present at the margins. ECC was negative but suggestive of a fibroid. History of cholecystectomy Previous section Family History Mother Cancer Reportedly Ovarian cancer in her late 20's resulting in a hysterectomy Unknown Cancer unknown family member, breast cancer Social History Smoking and tobacco/nicotine status: current every day tobacco/nicotine user (Vape, Tobacco, Marijuana use) Alcohol intake: former Substance/Drug Use: current Adopted: No Caregiver/support person: No Lives independently: Yes Household members: significant other Housing: Manufactured/Mobile home Marital status: Single Number of children: 7 Highest education level completed: High School Graduate service: No Current occupational status: unemployed Current occupational exposures/hazards: No Pets and animals: Yes Pets & animals: cat(s) and dog(s) Leisure activites: exercise and other Leisure activities details: going to the river Sexually active: Yes Do you think of yourself as: Straight/Heterosexual Current gender identity: Female Shirley/Faith: None Special shirley needs: No Agree to transfusion: Yes Female Reproductive History: Para: 1 Spontaneous abortions: Yes Physical Exam Narrative: EXAM NARRATIVE: General: Alert, no acute distress. Skin: Warm, dry. Head: Normocephalic, atraumatic. Neck: Supple, trachea midline. Eye: Extraocular movements are intact. Ears, nose, mouth and throat: mucosa moist. Cardiovascular: Regular, Normal peripheral perfusion. Respiratory: Lungs are clear to auscultation, respirations are non-labored, breath sounds are equal, Symmetrical chest wall expansion. Gastrointestinal: Soft, Nontender, Non distended Musculoskeletal: Normal ROM, no deformity. Neurological: Alert and oriented, No focal neurological deficit observed. Psychiatric: Cooperative, appropriate mood & affect. Denies suicidal thoughts at this time. Course Vital Signs: Vital signs: Vital Signs Temperature 98.3 F 08/21/25 16:44 Pulse Rate 84 08/21/25 16:44 Respiratory Rate 16 08/21/25 16:44 Blood Pressure 142/99 08/21/25 16:44 Pulse Oximetry 99 08/21/25 16:44 Oxygen Delivery Me thod Room Air 08/21/25 16:44 MDM - Psych Medical Decision Making Medical decision making: Differential diagnosis including but not limited to and based on the above HPI, review of systems and physical exam: Patient currently has no suicidal thoughts and has a baby that serves to prevent her having those thoughts she says. She just needs meds so we decided to go to the crisis center to seek help. Assessment and plan: Depression and anxiety ?Patient escorted to the crisis center - Discharged home - Discussed plan with patient. Answered any questions. - Evaluation and treatment of this problem were appropriate in the emergency setting. No radiology studies performed this visit Discharge Plan Discharge Patient Disposition: Home Clinical Impression: Depression Condition: Stable Prescriptions: No Action acetaminophen 325 mg capsule 325 mg PO QID PRN (Reason: Pain) Flintstones with Extra Iron 18 mg iron tablet,chewable 1 tab PO DAILY Patient Comments: with folic acid escitalopram oxalate 10 mg tablet See Rx Instructions .ROUTE .COMPLEX Qty: 30 1RF Dose Instruction: TAKE ONE TABLET BY MOUTH daily Rx Instructions: TAKE ONE TABLET BY MOUTH daily Discharge Orders: Discharge ED (Routine); Ordered 08/21/25 Ordered By: Maru Weaver Referrals: Yumiko John DO [Primary Care Provider, Family Practice] Discharge Diet: Usual diet Discharge Activity: Increase activity as tolerated Patient Instructions: Opioid Safety, Pain Management, Patient Portal & Arnold Instructions Activity Restrictions/Additional Instructions: Please follow-up with the [facility] crisis center immediately upon discharge from the emergency room. Phone number is [phone]. There is a 24-hour crisis hotline with the number of 255. Hours of operation are 8 AM to 6 PM. Thank you for choosing [facility] for your healthcare needs today. Please realize this is an emergency room and that we are providing you with a medical screening exam and this may not be complete and all inclusive of all the testing and or work up that you may need to determine your ailment or severity of your illness. You have been screened and evaluated and felt safe for discharge. Health conditions do change or evolve sometimes and as such it is important that you follow up with your Primary Doctor to be re checked, 3-5 days is a general good time frame for follow up. You are always welcome to return to the ED for re assessment if your symptoms are worsening or you have new concerns Print Language: Marshallese Coding Level of Care Code ED Plant Safety Leader for Holly Del Cid
[2025-08-21 16:44] VITALS: BP 142/99; PULSE 84; RESP 16; TEMP 36.8; O2SAT 99; BMI 34.3
== END 2025-08-21 16:47 | disposition home or self-care (01) ==
PROVIDERS: Emergency Provider Emergency Medicine; PCP Family Medicine
DX: F32.A Depression, unspecified (principal); F17.290 Nicotine dependence, other tobacco product, uncomplicated; F12.90 Cannabis use, unspecified, uncomplicated; F17.200 Nicotine dependence, unspecified, uncomplicated
CPT/HCPCS: 99283

== ENCOUNTER 2025-08-22 04:19 | Inpatient (IN) | payer MEDICAID, SELFPAY ==
[2025-01-17 10:06] VITALS: BP 140/85; BMI 34.8
[2025-08-22 04:19] VITALS: BP 125/89; PULSE 86; RESP 18; TEMP 36.8; O2SAT 98; BMI 32.8
--- NOTE | 2025-08-22 04:28 | XRR_ITS ---
PROCEDURE INFORMATION: Exam: XR Chest Exam date and time: 08/22/2025 5:38 AM Age: 25 years old Clinical indication: Cough; Additional info: Chest congestion, psych clearance TECHNIQUE: Imaging protocol: Radiologic exam of the chest. Views: 1 view. COMPARISON: CR XR chest 1V portable [id number] 09/25/2024 4:20 PM FINDINGS: Lungs: Unremarkable. No consolidation. Pleural spaces: Unremarkable. No pleural effusion. No pneumothorax. Heart/Mediastinum: Unremarkable. No cardiomegaly. Bones/joints: Unremarkable. XR/XR chest 1V portable [id number] IMPRESSION: No acute findings.
--- NOTE | 2025-08-22 04:34 | W.ED.PSYCHS ---
HPI - Psych General: Chief Complaint: Psychiatric Symptoms Stated Complaint: SI Time Seen by Provider: 08/22/25 04:20 History of Present Illness: 25-year-old female history of depression, previous attempts at self-harm greater than a year ago, recently 1 month ago, presenting the emergency department with ongoing depressive thoughts, sadness, stress related to recent childbirth and current conflict with her child's father who she lives with, was seen in the emergency department yesterday and escorted to crisis center who initiated Zoloft which she has not yet started. Reports that she feels as if her baby's father and his mother do not believe her regarding her mood related symptoms and this caused a lot of distress overnight which led to her feeling thoughts of wanting to , she does have reported passive plans to possibly cut herself or walk into traffic or attempt to hang herself which are self-harm attempt she has performed in the past, she denies any drug or substance abuse this evening, she denies any attempts at self-harm thus far. She does endorse medical symptoms of several day history of chest congestion and mild cough, as well as a moderate 6 out of 10 headache intermittently over the past few hours.. Related Data Home Medications ?Medication ?Instructions ?Recorded ?Confirmed pediatric multivitamin 1 tab PO DAILY 05/13/25 07/24/25 no.226-ferrous sulfate 18 mg chewable tablet (Flintstones with Extra Iron) acetaminophen 325 mg capsule 325 mg PO QID PRN Pain 07/03/25 07/24/25 Previous Rx's ?Medication ?Instructions ?Recorded escitalopram oxalate 10 mg tablet See Rx Instructions .Route 07/15/25 .COMPLEX #30 tabs Allergies Allergy/AdvReac Type Severity Reaction Status Date / Time adhesive tape Allergy Mild ALGY-Rash Verified 08/22/25 04:26 Fish Containing Products Allergy Mild ALGY-Hives Verified 08/22/25 04:26 poison malorie extract Allergy ALGY-Rash Verified 08/22/25 04:26 poison oak extract Allergy ALGY-Rash Verified 08/22/25 04:26 PFSH ED PFSH: Medical History History of loop electrosurgical excision procedure (LEEP) of cervix affecting in third trimester GIANNI I (cervical intraepithelial neoplasia I) (~07/23/24) on cone bx for ASCUS(H)-pathology demonstrated GIANNI 1 w/o clear margins; low grade dysplasia present at the margins. ECC was negative but suggestive of a fibroid. No pertinent past medical history neghx: dm, thyroid, dvt/pe PCP: none Abnormal uterine bleeding (AUB) Nicotine dependence, cigarettes, uncomplicated Cellulitis Marijuana use, episodic Generalized anxiety disorder Chronic post-traumatic stress disorder Cyclothymic disorder with anxious distress Psychiatric care Surgical History History of hysteroscopy (~07/23/24) Hysteroscopy with D&C History of cone biopsy of cervix (~07/23/24) performed by Dar at [facility] for ASCUS(H)-- pathology demonstrated GIANNI 1 w/o clear margins; low grade dysplasia present at the margins. ECC was negative but suggestive of a fibroid. History of cholecystectomy Previous section Family History Mother Cancer Reportedly Ovarian cancer in her late 20's resulting in a hysterectomy Unknown Cancer unknown family member, breast cancer Social History Smoking and tobacco/nicotine status: current every day tobacco/nicotine user (Vape, Tobacco, Marijuana use) Alcohol intake: former Substance/Drug Use: current Adopted: No Caregiver/support person: No Lives independently: Yes Household members: significant other Housing: Manufactured/Mobile home Marital status: Single Number of children: 7 Highest education level completed: High School Graduate service: No Current occupational status: unemployed Current occupational exposures/hazards: No Pets and animals: Yes Pets & animals: cat(s) and dog(s) Leisure activites: exercise and other Leisure activities details: going to the river Sexually active: Yes Do you think of yourself as: Straight/Heterosexual Current gender identity: Female Shirley/Islam: None Special shirley needs: No Agree to transfusion: Yes Female Reproductive History: Para: 1 Spontaneous abortions: Yes Physical Exam Narrative: EXAM NARRATIVE: Gen: A&Ox4, no acute distress, nontoxic appearing HEENT: Normocephalic, atraumatic, no scleral icterus, external ears normal, moist mucous membranes Neck: Supple, full range of motion, no observable masses Lungs: No Respiratory distress, Lungs clear to auscultation bilaterally no rales, rhonchi, wheezing CV: Regular rate and rhythm, no murmur, no pitting edema to lower extremities bilaterally Abdomen: Soft, nondistended, nontender to palpation MSK: No joint swelling, FROM all 4 extremities Skin: No rashes, petechiae, lesions. Normal color per patient. Neuro: Alert and oriented, no slurred speech, sensation and strength grossly intact all 4 extremities Psych: Appropriate for situation. Course Reevaluation(s): Reevaluation #1: Patient medically cleared as of this time for transfer for psychiatric evaluation, will admit to inpatient psych in the morning when beds become available Time: 06:11 Vital Signs: Vital signs: Vital Signs Temperature 98.3 F 08/22/25 04:19 Pulse Rate 86 08/22/25 04:19 Respiratory Rate 18 08/22/25 04:19 Blood Pressure 125/89 08/22/25 04:19 Pulse Oximetry 98 08/22/25 04:19 Oxygen Delivery Me thod Room Air 08/22/25 04:19 [facility] - Psych Medical Decision Making 25-year-old female presenting the emergency department with ongoing depressive thoughts and now reported suicidal ideation with potential plans elucidated, she does have a history of depression, she does have a history of attempts at self-harm in the past greater than a year ago, she is recently x 1 month and there is significant conflict with the baby's father per her report, she does endorse mild medical symptoms including chest congestion and mild headache with a normal neurologic exam, plan for initiation medical screening, discussion with psychiatry for disposition in a.m. Lab Data Labs with no leukocytosis, stable electrolytes, normal kidney function, no UTI, urine drug screen positive for marijuana otherwise negative for intoxicants 08/22/25 04:52 08/22/25 04:52 Laboratory Results WBC 4.55 10^3/uL (3.29-11.43) 08/22/25 04:52 RBC 4.16 10^6/uL (3.85-5.65) 08/22/25 04:52 Hgb 11.00 g/dL (11.27-16.99) L 08/22/25 04:52 Hct 36.3 % (36-47) 08/22/25 04:52 MCV 87.3 fl (85-98) 08/22/25 04:52 MCH 26.4 pg (27-33) L 08/22/25 04:52 MCHC 30.3 g/dL (30-55) 08/22/25 04:52 RDW 16.8 % (12.1-15.1) H 08/22/25 04:52 Plt Count 218 10^3/cmm (157-399) 08/22/25 04:52 MPV 9.7 fL (7.4-10.4) 08/22/25 04:52 Neut % (Auto) 59.1 % 08/22/25 04:52 Lymph % (Auto) 29.7 % 08/22/25 04:52 [place] % (Auto) 8.8 % 08/22/25 04:52 Eos % (Auto) 1.8 % 08/22/25 04:52 Baso % (Auto) 0.4 % 08/22/25 04:52 Neut # (Auto) 2.69 10^3/uL (1.8-7.7) 08/22/25 04:52 Lymph # (Auto) 1.4 10^3/uL (0.8-4.8) 08/22/25 04:52 [place] # (Auto) 0.4 10^3/uL (0.2-0.9) 08/22/25 04:52 Eos # (Auto) 0.1 10^3/uL (0.0-0.8) 08/22/25 04:52 Baso # (Auto) 0.0 10^3/uL (0.0-0.1) 08/22/25 04:52 Nucleated RBC % (auto) 0 % 08/22/25 04:52 Nucleated RBCs # 0.0 /100WBC 08/22/25 04:52 Sodium 141 mmol/L (136-145) 08/22/25 04:52 Potassium 3.7 mmol/L (3.5-5.1) 08/22/25 04:52 Chloride 105 mmol/L (98-107) 08/22/25 04:52 Carbon Dioxide 25 mmol/L (22-29) 08/22/25 04:52 Anion Gap 14.7 (5-19) 08/22/25 04:52 BUN 9 mg/dL (6-20) 08/22/25 04:52 Creatinine 0.9 mg/dL (0.5-0.9) 08/22/25 04:52 GFR Calculation 75.1 mL/min (90-130) L 08/22/25 04:52 Glucose 92 mg/dL (65-115) 08/22/25 04:52 Calculated Osmolality 290 mOsm/kg (285-295) 08/22/25 04:52 Calcium 8.9 mg/dL (8.5-10.5) 08/22/25 04:52 Total Bilirubin 0.2 mg/dL (0.15-1.2) 08/22/25 04:52 AST 29 U/L (0-32) 08/22/25 04:52 ALT 33 U/L (0-33) 08/22/25 04:52 Alkaline Phosphatase 119 U/L (35-105) H 08/22/25 04:52 Total Protein 6.6 g/dL (6.6-8.7) 08/22/25 04:52 Albumin 3.8 g/dL (3.5-5.2) 08/22/25 04:52 Globulin 2.8 g/dL (1.3-4.6) 08/22/25 04:52 TSH 2.47 uIU/mL (0.27-4.20) 08/22/25 04:52 HCG, Qual Negative (Negative) 08/22/25 04:33 Urine Color Yellow (Yellow) 08/22/25 04:33 Urine Appearance Clear (CLEAR) 08/22/25 04:33 Urine pH 7.0 (5-7) 08/22/25 04:33 Ur Specific [place] 1.026 (1.005-1.030) 08/22/25 04:33 Urine Protein Trace (Negative) A 08/22/25 04:33 Urine Glucose (UA) Negative (Normal) 08/22/25 04:33 Urine Ketones Trace (Negative) 08/22/25 04:33 Urine Blood Negative (Negative) 08/22/25 04:33 Urine Nitrate Negative (Negative) 08/22/25 04:33 Urine Bilirubin Negative (Negative) 08/22/25 04:33 Urine Urobilinogen 1.0 mg/dL (Negative) 08/22/25 04:33 Ur Leukocyte Esterase Trace (Negative) A 08/22/25 04:33 Urine RBC 0-4 /hpf (0-2) H 08/22/25 04:33 Urine WBC 5-10 /hpf (0-5) H 08/22/25 04:33 Ur Squamous Epith Cells 15-25 /hpf (0-5) H 08/22/25 04:33 Amorphous Sediment Not Reportable 08/22/25 04:33 Urine Bacteria 1+ /hpf (NONE) H 08/22/25 04:33 Urine Mucus 2+ /hpf 08/22/25 04:33 Salicylates < 0.3 mg/dL (3-10) L 08/22/25 04:52 Urine Opiates Screen Negative ng/mL (Negative) 08/22/25 04:33 Acetaminophen < 5.0 ug/mL (10-30) L 08/22/25 04:52 Ur Barbiturates Screen Negative ng/mL (Negative) 08/22/25 04:33 Ur Phencyclidine Scrn Negative ng/mL (Negative) 08/22/25 04:33 Ur Amphetamines Screen Negative ng/mL (Negative) 08/22/25 04:33 U Benzodiazepines Scrn Negative ng/mL (Negative) 08/22/25 04:33 Urine Cocaine Screen Negative ng/mL (Negative) 08/22/25 04:33 U Marijuana (THC) Screen Positive ng/mL (Negative) H 08/22/25 04:33 Ethyl Alcohol < 10 mg/dL (0-10) 08/22/25 04:52 Influenza A (PCR) Negative (Negative) 08/22/25 04:33 Influenza Type B (PCR) Negative (Negative) 08/22/25 04:33 RSV (PCR) Negative (Negative) 08/22/25 04:33 SARS-CoV-2 (PCR) Negative (Negative) 08/22/25 04:33 XR interpretation done by ED provider, pending radiology final review ED provider radiology interpretation(s): Chest x-ray negative for pneumonia Discharge Plan Discharge Patient Disposition: Admitted As Inpatient Clinical Impression: Suicidal ideation Condition: Stable Sign Out Sign Out Data: Patient Sign Out occurred on 08/22/25 at 06:03. Patient's care was discussed, and care was transferred from Obdulio Latham MD to Rick Henderson DO. Coding Level of Care Code ED Finance Consultant for Holly Del Cid
[2025-08-22 04:45] LABS: Glucose Urine UA Negative (Normal); Nitrate Urine Negative (Negative); Specific Gravity, Urine 1.026 (1.005-1.030)
[2025-08-22 04:53] LABS: PCP Screen Urine Negative (Negative)
[2025-08-22 04:56] LABS: HCG Qualitative Urine. Negative (Negative)
[2025-08-22 04:58] LABS: Hematocrit 36.3 % (36-47); Hemoglobin 11.00 g/dL (11.27-16.99); Mean Corpuscular HGB Conc 30.3 g/dL (30-55); Mean Corpuscular Hemoglobin 26.4 pg (27-33); Mean Corpuscular Volume 87.3 fl (85-98); Nucleated Red Blood Cells % 0 %; Platelet Count 218 10^3/cmm (157-399); Red Blood Count 4.16 10^6/uL (3.85-5.65); White Blood Count 4.55 10^3/uL (3.29-11.43)
[2025-08-22 05:06] LABS: UA Manual Slide Review YES
[2025-08-22 05:08] LABS: Add Urine Microscopic? YES
[2025-08-22 05:21] LABS: Respiratory Syncytial Virus Ce NEGATIVE (Negative); SARS-CoV-2 PCR NEGATIVE (Negative)
[2025-08-22 05:27] LABS: Alanine Aminotransferase 33 U/L (0-33); Albumin Level 3.8 g/dL (3.5-5.2); Alkaline Phosphatase 119 U/L (35-105); Anion Gap 14.7 (5-19); Aspartate Amino Transferase 29 U/L (0-32); Blood Urea Nitrogen 9 mg/dL (6-20); Calcium 8.9 mg/dL (8.5-10.5); Carbon Dioxide 25 mmol/L (22-29); Chloride 105 mmol/L (98-107); Creatinine Clr Calc Pharmacy 89.3057; Globulin 2.8 g/dL (1.3-4.6); Glucose 92 mg/dL (65-115); Osmolality Calculated 290 mOsm/kg (285-295); Potassium 3.7 mmol/L (3.5-5.1); Sodium 141 mmol/L (136-145); Thyroid Stimulating Hormone 2.47 uIU/mL (0.27-4.20); Total Protein 6.6 g/dL (6.6-8.7)
[2025-08-22 05:28] LABS: Acetaminophen < 5.0 ug/mL (10-30); Alcohol Level < 10 mg/dL (0-10); Salicylate < 0.3 mg/dL (3-10)
[2025-08-22 08:54] VITALS: BP 108/73; PULSE 79; O2SAT 97
--- NOTE | 2025-08-22 09:18 | CSC.DSPLAN ---
[facility] Discharge Plan Current SI: None Current HI: Denies any homicidal thoughts, plans, intentions, or time frames Safety Plan Completed: No Patient agrees with discharge safety plan: No Was the client admitted to [facility]?: Yes Were medication services provided during today's visit?: Yes Client Presentation upon Discharge: calm and cooperative Current Progress Towards Recovery and Well-Being: Client received prescription for new medication Continued Treatment Barriers: mental health, substance use, lack of transportation, unemployed, lack of support system Treatment Goals Achieved During Program Participation: Mental health services and Medication assistance Services referred from Center: Outpatient treatment ([facility]) Care Provided-Services the individual received: Crisis Services [facility] Outcome: Crisis Stabilized CSC Discharge Disposition/Location: Home/Residence Care Coordination Agencies Referred to:: None Client Follow up Plan to Referred agencies:: None
--- NOTE | 2025-08-22 09:19 | W.CSC.NURCN ---
CSC Nurse Contact Note Nurse Contact Note Client presented [place] [facility] [place], after referral from the [facility] emergency department. Client denied SI/HI. Client reported depression and anxiety, she discussed that she felt her symptoms are related to her living situation and relationship issues with her boyfriend. Client reported that she recently had a baby about 1 month ago and is . Client reported that she is currently taking Lexapro 10 mg PO once daily but feels that it is not enough to treat her depression. Client reports crying several times throughout the day almost every day. Nurse notified Dr. Glez and gave a brief report. Dr. Glez gave verbal orders to discontinue Lexapro and start Zoloft 50 mg PO once daily Qty 30, 0 RF and instructed nurse to have client follow up with [facility] in 1 week and discuss the potential of increasing the Zoloft dosage. Nurse called new prescription in to [facility] in [place] per client request. Nurse educated client on Crisis Services, discussed [phone] and gave client an [employer] green card. Client agreed to return to [facility] next week for medication follow up and to meet with a CSS to work on housing goals.
--- NOTE | 2025-08-22 12:41 | PC.NURSE ---
PT SITTING IN BED TEARFUL. PT VERBALIZED TO THIS NURSE THAT SHE IS MISSING HER SON. PT STATES SHE DOESN'T WANT TO HURT ANYONE BUT HERSELF. PT WAS EDUCATED BY THIS NURSE THTAT SHE NEEDED TO TAKE CARE OF HERSELF IN ORDER TO TAKE CARE OF HER SON. PT STILL TEARFUL AND REQUESTING SOMETHING FOR ANXIETY.
[2025-08-22 15:35] VITALS: BP 106/70; PULSE 90; O2SAT 100
[2025-08-22 16:11] VITALS: BP 113/80; PULSE 73; RESP 16; TEMP 37; O2SAT 98
[2025-08-22 21:54] VITALS: BP 117/82; PULSE 72; RESP 17; TEMP 36.8; O2SAT 98
[2025-08-23 06:00] VITALS: BP 116/73; PULSE 89; RESP 18; TEMP 37.2; O2SAT 97
--- NOTE | 2025-08-23 07:18 | W.PM.NPUH&PS ---
Providers/Chief Complaint Admitting Physician: Dru Glez MD Primary Care Provider: Yumiko John DO Chief Complaint: SI HPI NPU History of Present Illness Penelope Henson is a 25 year old female who presented to the emergency department with the following report: Chief Complaint: Psychiatric Symptoms Stated Complaint: SI Time Seen by Provider: 08/22/25 04:20 History of Present Illness: 25-year-old female history of depression, previous attempts at self-harm greater than a year ago, recently 1 month ago, presenting the emergency department with ongoing depressive thoughts, sadness, stress related to recent childbirth and current conflict with her child's father who she lives with, was seen in the emergency department yesterday and escorted to crisis center who initiated Zoloft which she has not yet started. Reports that she feels as if her baby's father and his mother do not believe her regarding her mood related symptoms and this caused a lot of distress overnight which led to her feeling thoughts of wanting to , she does have reported passive plans to possibly cut herself or walk into traffic or attempt to hang herself which are self-harm attempt she has performed in the past, she denies any drug or substance abuse this evening, she denies any attempts at self-harm thus far. She does endorse medical symptoms of several day history of chest congestion and mild cough, as well as a moderate 6 out of 10 headache intermittently over the past few hours. She was admitted to the neuropsychiatric unit for definitive treatment of those issues. She is known to [facility] psychiatry through outpatient services but no inpatient services here. An excerpt of her 08/10/2020 outpatient assessment is included below for context and given her is a limited historian. She presents reporting that things have been very challenging at home. She reports that there is significant stressors that occurred in her life. She had a psychiatric evaluation in July 2020 and an excerpt of that note is included below for context and the fact that when reviewed with her she said it was historically accurate. She is she has continued with outpatient services though she has not been seen since January of this year by her outpatient psychiatrist. She had a baby a month ago and has had worsening of symptoms since then. She reports that things have been going fairly well but then a couple years ago she connected with the person who is the father of her child and he said that things will be a certain way where he was in the daycare things she did need to have a job things of that nature but it appears the relationship is faltered and now he is pretending is that he does not recall that plan and acting like he is upset that she did not already have a job when I was never something that they had discussed. She reports that she is willing to do what she needs to do to have success in life but they had discussed things and she got and now the story is changed. She reports that the baby is fine and that she has a lot of anxiety about doing well by the baby because she does have an 8-year-old that was taken from her and she is trying to avoid that pattern returning. She reports that she feels the medication has not been effective that she is taking now we discussed the risks, benefits and alternatives of changing her medication and she understood and agreed to proceed as documented in this note. Per her 08/10/2020 [facility] outpatient psychiatric evaluation: [facility] History and Physical Time In: 15:05 Time Out: 16:00 Chief Complaint: Depression History of Present Illness: Patient is a 20-year-old female, she recently relocated to [place] from [place], needs to get established for her psychiatric medications. Prior to this she received care at [facility]. Currently her son is in foster care, ongoing DFS case. Patient has crying episodes, depressed mood, poor energy motivation, trouble with focus and concentration, feels worthless at times. She has restless sleep, good appetite. She continues to miss her son who is now 1 year and 3 months old, she has very limited support with just her boyfriend, no real family support to speak of. Patient does have a history of depression. When her baby was born 1 year and 3 months ago, she had never had any experience with DFS as a mother, at the 4-month checkup, the comic artist deemed her child's neglected and failure to thrive and called DFS. Her child's been in DFS custody since. Patient does visit her son on Tuesdays, she is working with [employer] and has accomplished some of her goals. She and the father of her baby broke up about 7 months ago and patient had nowhere else to live in [place] so she moved in with a former male friend who lived in [place]. Patient is living in a safe place, they are looking for a different house together, she denies any abuse occurring in her home. She has a past history of substance use but is now clean and sober and has random drug test through the Department of family services. She denies any complications from withdrawal, denies having any cravings. For the last year she mainly used marijuana and prior to that she used other illicit substances. She has a long list of things that DFS wants her to do: Continue to have clean drug screens, get into your own house that is suitable for a baby, get a miniature train driver's license?patient has never done this, get a job, and go to rehab?she is uncertain if this means in her outpatient and it is related to her past use and part of a relapse prevention strategy. She is also supposed to come have psychiatric services and counseling which she has started today. She denies PTSD, no OCD type rituals, denies james, she is not having panic attacks, no disordered eating, denies any history of suicidal or homicidal ideation, no history of psychosis or paranoia History Past Psychiatric History: Medications?Seroquel and trazodone Admissions?patient was admitted long time ago in [place] for psychiatric evaluation related to drug use. Family History: History of anxiety, bipolar disorder and depression in her family. Some family members have prescription medication addiction.'s Past Medical History: Patient has had a , she is currently on control Substance Use History: Cannabis Age of onset (years): 17 Duration: 3 months ago Pattern of use: was using until about 3 months ago. and Amphetamine Age of onset (years): 16 Duration: few times Pattern of use: none for about 4 years Social History: Patient was raised by a single mother, there were frequent moves, patient has 1 brother, DFS was frequently involved with the family. Patient has a son in foster care, and her boyfriend. 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 Meds NPU Home Medications ?Medication ?Instructions ?Recorded ?Confirmed ?Last Taken ?Type pediatric multivitamin 1 tab PO DAILY 05/13/25 08/22/25 07/23/25 History no.226-ferrous sulfate 18 mg chewable tablet (Flintstones with Extra Iron) acetaminophen 325 mg capsule 325 mg PO QID PRN Pain 07/03/25 08/22/2507/23/25 22:00 History escitalopram oxalate 10 mg tablet 10 mg PO DAILY 08/22/25 08/22/25 Unknown History Allergies Allergy/AdvReac Type Severity Reaction Status Date / Time adhesive tape Allergy Mild ALGY-Rash Verified 08/22/25 04:26 Fish Containing Products Allergy Mild ALGY-Hives Verified 08/22/25 04:26 poison malorie extract Allergy ALGY-Rash Verified 08/22/25 04:26 poison oak extract Allergy ALGY-Rash Verified 08/22/25 04:26 PFSH NPU PFSH: Medical History (Updated 08/24/25 @ 10:08 by Dru Glez MD) History of loop electrosurgical excision procedure (LEEP) of cervix affecting in third trimester GIANNI I (cervical intraepithelial neoplasia I) (~07/23/24) on cone bx for ASCUS(H)-pathology demonstrated GIANNI 1 w/o clear margins; low grade dysplasia present at the margins. ECC was negative but suggestive of a fibroid. No pertinent past medical history neghx: dm, thyroid, dvt/pe PCP: none Abnormal uterine bleeding (AUB) Nicotine dependence, cigarettes, uncomplicated Cellulitis Marijuana use, episodic Generalized anxiety disorder Chronic post-traumatic stress disorder Cyclothymic disorder with anxious distress Psychiatric care Surgical History History of hysteroscopy (~07/23/24) Hysteroscopy with D&C History of cone biopsy of cervix (~07/23/24) performed by Dar at [facility] for ASCUS(H)-- pathology demonstrated GIANNI 1 w/o clear margins; low grade dysplasia present at the margins. ECC was negative but suggestive of a fibroid. History of cholecystectomy Previous section Family History Mother Cancer Reportedly Ovarian cancer in her late 20's resulting in a hysterectomy Unknown Cancer unknown family member, breast cancer Social History Smoking and tobacco/nicotine status: current every day tobacco/nicotine user (Vape, Tobacco, Marijuana use) Alcohol intake: former Substance/Drug Use: current Adopted: No Caregiver/support person: No Lives independently: Yes Household members: significant other Housing: Manufactured/Mobile home Marital status: Single Number of children: 7 Highest education level completed: High School Graduate service: No Current occupational status: unemployed Current occupational exposures/hazards: No Pets and animals: Yes Pets & animals: cat(s) and dog(s) Leisure activites: exercise and other Leisure activities details: going to the river Sexually active: Yes Do you think of yourself as: Straight/Heterosexual Current gender identity: Female Shirley/Muslim: None Special shirley needs: No Agree to transfusion: Yes Female Reproductive History: Para: 1 Spontaneous abortions: Yes Mental Status Exam MSE Comments: This is an obese white female in hospital scrubs with limited grooming but adequate eye contact. No abnormal movements except for mild psychomotor retardation. Cooperative with exam in mild to moderate distress. Speech was slightly decreased rate and volume. Mood described as depressed, affect congruent. Thought process organized. Thought content: Patient denies suicidal or homicidal ideation right now, there are no delusions reported or noted, she denies any auditory or visual hallucinations. Attention and concentration were intact and memory appeared reliable but none were formally tested. Alert and oriented x 3. Insight is fair, judgment and impulse control are impaired. Vitals/I&O/Wt Last Vital Signs Temp 98.9 F 08/23/25 06:00 Pulse 89 08/23/25 06:00 Resp 18 08/23/25 06:00 BP 116/73 08/23/25 06:00 Pulse Ox 97 08/23/25 06:00 O2 Del Method Room Air 08/23/25 06:00 Weight last 48 hrs Weight 78.925 kg Data NPU 08/22/25 04:52 08/22/25 04:52 A&P Assessment and plan 1. Cyclothymic disorder: 2. Chronic post-traumatic stress disorder: 3. Generalized anxiety disorder: 4. Depression: 5. Suicidal ideation: 6. Cannabis use disorder: Plan: This is a 25-year-old white female 1 month with a long history of mental health and addiction issues with reports of sobriety from past drugs of abuse but continued marijuana use with significant relationship issues and stressors, recent worsening of her depression with limited connection with the outpatient services hoping for assistance with her medication. 1. Continue current medication except officially discontinue Lexapro and start Zoloft 50 mg p.o. daily for treatment of her depression during her breast-feeding. 2. Continue every 15 minute checks for safety. 3. Encourage individual, group and milieu therapy. 4. Obtain collateral information. 5. Monitor against the backdrop of safety concerns related to affidavit. PDMP PDMP Reviewed: Not Reviewed Involuntary Hold Information Hold Status: Date/Time Hold Expires: voluntary w/ affidavit Attestations NPU Medical Necessity Statement*: Inpatient hospitalization is medically necessary and the clinically appropriate intervention at this time. We will monitor/initiate medications and make changes as indicated. She will be in the hospital for over 2 midnights. Likely length of stay 3 to 5 days. Coding Level of Care Code Acute Code for Chg Fwd Diagnoses Cyclothymic disorder F34.0 Chronic post-traumatic stress disorder F43.12 Generalized anxiety disorder F41.1 Depression F32.A Suicidal ideation R45.851 Cannabis use disorder F12.90
--- NOTE | 2025-08-23 10:17 | PC.NURSE ---
Patient is mostly isolating to her room. Affect is sad. She denies SI/HI/AVH. She endorses that her depression is better today. She states that she just wants to see her son. Patient reported that she has been taking an antidepressant at home. She reports that she was changed to Zoloft unknown dose that was to start today.
[2025-08-23 12:57] VITALS: BP 119/84; PULSE 74; RESP 20; TEMP 37.4; O2SAT 99
[2025-08-23 19:54] VITALS: BP 131/84; PULSE 86; RESP 18; TEMP 36.6; O2SAT 98
[2025-08-24 06:00] VITALS: BP 113/73; PULSE 71; RESP 16; TEMP 36.6; O2SAT 98
[2025-08-24 14:00] VITALS: BP 112/73; PULSE 79; RESP 16; TEMP 37.2; O2SAT 96
--- NOTE | 2025-08-24 14:41 | W.PM.NPUPNS ---
Subjective NPU Subjective: Patient presented today reporting that things seem to be feeling a little better since the medication change. She continues to pump for breast-feeding during her free time. We continued to discuss as needed medications for her anxiety. Vistaril she reports is totally ineffective but has had some perceived benefit from Zyprexa 5 mg as needed when given. We agreed to discuss with the nurses allowing access to the breast pump as needed. She denied any side effects to her medication. Mental Status Exam MSE Comments: This is an obese white female in hospital scrubs with limited grooming but adequate eye contact. No abnormal movements except for mild psychomotor retardation. Cooperative with exam in mild distress. Speech was slightly decreased rate and volume. Mood described as maybe a little better, affect congruent. Thought process organized. Thought content: Patient denies suicidal or homicidal ideation right now, there are no delusions reported or noted, she denies any auditory or visual hallucinations. Attention and concentration were intact and memory appeared reliable but none were formally tested. Alert and oriented x 3. Insight is fair, judgment and impulse control are improving. Vitals/I&O/Wt Last Vital Signs Temp 99 F 08/24/25 14:00 Pulse 79 08/24/25 14:00 Resp 16 08/24/25 14:00 BP 112/73 08/24/25 14:00 Pulse Ox 96 08/24/25 14:00 O2 Del Method Room Air 08/24/25 14:00 Weight last 48 hrs Weight 78.834 kg Data NPU 08/22/25 04:52 08/22/25 04:52 A&P Assessment and plan 1. Cyclothymic disorder: 2. Chronic post-traumatic stress disorder: 3. Generalized anxiety disorder: 4. Depression: 5. Suicidal ideation: 6. Cannabis use disorder: Plan: This is a 25-year-old white female 1 month with a long history of mental health and addiction issues with reports of sobriety from past drugs of abuse but continued marijuana use with significant relationship issues and stressors, recent worsening of her depression with limited connection with the outpatient services hoping for assistance with her medication. 1. Continue current medication except officially discontinue Lexapro and start Zoloft 50 mg p.o. daily for treatment of her depression during her breast-feeding. 2. Continue every 15 minute checks for safety. 3. Encourage individual, group and milieu therapy. 4. Obtain collateral information. 5. Monitor against the backdrop of safety concerns related to affidavit. PDMP PDMP Reviewed: Not Reviewed Involuntary Hold Information Hold Status: Date/Time Hold Expires: voluntary w/ affidavit Attestations NPU Medical Necessity Statement*: Inpatient hospitalization is medically necessary and the clinically appropriate intervention at this time. We will monitor/initiate medications and make changes as indicated. Likely length of stay 2-4 days. Coding Level of Care Code Acute Code for [facility] Fwd Diagnoses Cyclothymic disorder F34.0 Chronic post-traumatic stress disorder F43.12 Generalized anxiety disorder F41.1 Depression F32.A Suicidal ideation R45.851 Cannabis use disorder F12.90
[2025-08-24 19:48] VITALS: BP 129/84; PULSE 82; RESP 18; TEMP 37.3; O2SAT 97
[2025-08-25 06:00] VITALS: BP 116/71; PULSE 74; RESP 18; TEMP 37; O2SAT 98
[2025-08-25] MEDS: DOCUSATE SODIUM 100 MG/10 ML UDC 50 MG PO (07:52)
[2025-08-25 14:00] VITALS: BP 101/74; PULSE 85; RESP 16; TEMP 36.9; O2SAT 97
--- NOTE | 2025-08-25 18:25 | P.NPUPN_ITS ---
Subjective NPU 2 Subjective: Patient presented today reporting that the medication seems to be helping. She reports that she misses her son and is certain she does not want to feel the way she was feeling again. We discussed an overview of how the discharge process occurs and agreed we would take it a day at a time and make sure that she has appropriate outpatient follow-up when discharged. We discussed her working with the social work team towards that end. He denied any side effects to the medication. Mental Status Exam 2 MSE Comments: This is an obese white female in hospital scrubs with limited grooming but adequate eye contact. No abnormal movements except for mild psychomotor retardation. Cooperative with exam in mild distress. Speech was slightly decreased rate and volume. Mood described a little better, affect congruent. Thought process organized. Thought content: Patient denies suicidal or homicidal ideation right now, there are no delusions reported or noted, she denies any auditory or visual hallucinations. Attention and concentration were intact and memory appeared reliable but none were formally tested. Alert and oriented x 3. Insight is fair, judgment and impulse control are improving. Vitals/I&O/Wt Last Vital Signs Temp 98.8 F 08/25/25 19:42 Pulse 117 H 08/25/25 19:42 Resp 18 08/25/25 19:42 BP 110/78 08/25/25 19:42 Pulse Ox 95 08/25/25 19:42 O2 Del Method Room Air 08/25/25 19:42 Data NPU 08/22/25 04:52 08/22/25 04:52 A&P Assessment and plan 1. Cyclothymic disorder: 2. Chronic post-traumatic stress disorder: 3. Generalized anxiety disorder: 4. Depression: 5. Suicidal ideation: 6. Cannabis use disorder: Plan: This is a 25-year-old white female 1 month with a long history of mental health and addiction issues with reports of sobriety from past drugs of abuse but continued marijuana use with significant relationship issues and stressors, recent worsening of her depression with limited connection with the outpatient services hoping for assistance with her medication. 1. Continue current medication except officially discontinue Lexapro and start Zoloft 50 mg p.o. daily for treatment of her depression during her breast- feeding. 2. Continue every 15 minute checks for safety. 3. Encourage individual, group and milieu therapy. 4. Obtain collateral information. 5. Monitor against the backdrop of safety concerns related to affidavit. PDMP PDMP Reviewed: Not Reviewed Involuntary Hold Information 2 Hold Status: Date/Time Hold Expires: voluntary w/ affidavit Attestations NPU 2 Medical Necessity Statement*: Inpatient hospitalization is medically necessary and the clinically appropriate intervention at this time. We will monitor/initiate medications and make changes as indicated. Likely length of stay 1-3 days. Coding Level of Care Code Acute Code for g Fwd Diagnoses Cyclothymic disorder F34.0 Chronic post-traumatic stress disorder F43.12 Generalized anxiety disorder F41.1 Depression F32.A Suicidal ideation R45.851 Cannabis use disorder F12.90
[2025-08-25 19:42] VITALS: BP 110/78; PULSE 117; RESP 18; TEMP 37.1; O2SAT 95
--- NOTE | 2025-08-25 20:14 | PC.NURSE ---
Medication Patient requested for Hydroxyzine be removed from her medication list. She stated this medication does not work for her.
[2025-08-26 06:00] VITALS: BP 107/71; PULSE 87; RESP 16; TEMP 37.1; O2SAT 97
--- NOTE | 2025-08-26 13:32 | P.NPUPN_ITS ---
Subjective NPU 2 Subjective: Patient presented today reporting that she is going better each day. She feels a switch to Lexapro was the right idea and seems to be working for her. She starting to feel optimistic about facing the stressors in her home situation. We discussed the likelihood of discharge in the next 48 hours. She denied any side effects of her medication. Mental Status Exam 2 MSE Comments: This is an obese white female in hospital scrubs with limited grooming but adequate eye contact. No abnormal movements except for mild psychomotor retardation. Cooperative with exam in mild distress. Speech was slightly decreased rate and volume. Mood described as better, affect congruent. Thought process organized. Thought content: Patient denies suicidal or homicidal ideation right now, there are no delusions reported or noted, she denies any auditory or visual hallucinations. Attention and concentration were intact and memory appeared reliable but none were formally tested. Alert and oriented x 3. Insight is fair, judgment and impulse control are improving. Vitals/I&O/Wt Last Vital Signs Temp 98.8 F 08/26/25 06:00 Pulse 87 08/26/25 06:00 Resp 16 08/26/25 06:00 BP 107/71 08/26/25 06:00 Pulse Ox 97 08/26/25 06:00 O2 Del Method Room Air 08/26/25 06:00 Data NPU 08/22/25 04:52 08/22/25 04:52 A&P Assessment and plan 1. Cyclothymic disorder: 2. Chronic post-traumatic stress disorder: 3. Generalized anxiety disorder: 4. Depression: 5. Suicidal ideation: 6. Cannabis use disorder: Plan: This is a 25-year-old white female 1 month with a long history of mental health and addiction issues with reports of sobriety from past drugs of abuse but continued marijuana use with significant relationship issues and stressors, recent worsening of her depression with limited connection with the outpatient services hoping for assistance with her medication. 1. Continue current medication except officially discontinue Lexapro and start Zoloft 50 mg p.o. daily for treatment of her depression during her breast- feeding. 2. Continue every 15 minute checks for safety. 3. Encourage individual, group and milieu therapy. 4. Obtain collateral information. 5. Monitor against the backdrop of safety concerns related to affidavit. PDMP PDMP Reviewed: Not Reviewed Involuntary Hold Information 2 Hold Status: Date/Time Hold Expires: voluntary w/ affidavit Attestations NPU 2 Medical Necessity Statement*: Inpatient hospitalization is medically necessary and the clinically appropriate intervention at this time. We will monitor/initiate medications and make changes as indicated. Likely length of stay 1-3 days. Coding Level of Care Code Acute Code for Chg Fwd Diagnoses Cyclothymic disorder F34.0 Chronic post-traumatic stress disorder F43.12 Generalized anxiety disorder F41.1 Depression F32.A Suicidal ideation R45.851 Cannabis use disorder F12.90
[2025-08-26 13:57] VITALS: BP 143/75; PULSE 103; RESP 16; TEMP 36.9; O2SAT 100
[2025-08-26 20:20] VITALS: BP 111/75; PULSE 102; RESP 18; TEMP 36.7; O2SAT 98
[2025-08-27 06:00] VITALS: BP 107/75; PULSE 90; RESP 16; TEMP 36.6; O2SAT 99
[2025-08-27 14:00] VITALS: BP 109/73; PULSE 90; RESP 15; TEMP 36.8; O2SAT 97
--- NOTE | 2025-08-27 14:37 | W.PM.NPUDCS ---
Diagnoses at Discharge Discharge Diagnosis 1. Cyclothymic disorder: 2. Chronic post-traumatic stress disorder: 3. Generalized anxiety disorder: 4. Depression: 5. Suicidal ideation: 6. Cannabis use disorder: Reason for Visit Reason for Visit: SI Involuntary Hold Information Hold Status: Date/Time Hold Expires: voluntary w/ affidavit Discharge Data Studies Completed and Pending: Completed Studies During Hospitalization Category Date Time Status XR chest 1V primo ble [id number] Stat Exams 08/22/25 04:28 Completed Radiology Impressions Chest X-Ray 08/22/25 04:28 IMPRESSION: No acute findings. Laboratory Results WBC 4.55 10^3/uL (3.2 9-11.43) 08/22/25 04:52 RBC 4.16 10^6/uL (3.8 5-5.65) 08/22/25 04:52 Hgb 11.00 g/dL (11.27 -16.99) L 08/22/25 04:52 Hct 36.3 % (36-47) 08/22/25 04:52 MCV 87.3 fl (85-98) 08/22/25 04:52 MCH 26.4 pg (27-33) L 08/22/25 04:52 MCHC 30.3 g/dL (30-55) 08/22/25 04:52 RDW 16.8 % (12.1-15.1 ) H 08/22/25 04:52 Plt Count 218 10^3/cmm (157 -399) 08/22/25 04:52 MPV 9.7 fL (7.4-10.4) 08/22/25 04:52 Neut % (Auto) 59.1 % 08/22/25 04:52 Lymph % (Auto) 29.7 % 08/22/25 04:52 [place] % (Auto) 8.8 % 08/22/25 04:52 Eos % (Auto) 1.8 % 08/22/25 04:52 Baso % (Auto) 0.4 % 08/22/25 04:52 Neut # (Auto) 2.69 10^3/uL (1.8 -7.7) 08/22/25 04:52 Lymph # (Auto) 1.4 10^3/uL (0.8- 4.8) 08/22/25 04:52 [place] # (Auto) 0.4 10^3/uL (0.2- 0.9) 08/22/25 04:52 Eos # (Auto) 0.1 10^3/uL (0.0- 0.8) 08/22/25 04:52 Baso # (Auto) 0.0 10^3/uL (0.0- 0.1) 08/22/25 04:52 Nucleated RBC % (a uto) 0 % 08/22/25 04:52 Nucleated RBCs # 0.0 /100WBC 08/22/25 04:52 Sodium 141 mmol/L (136-1 45) 08/22/25 04:52 Potassium 3.7 mmol/L (3.5-5 .1) 08/22/25 04:52 Chloride 105 mmol/L (98-10 7) 08/22/25 04:52 Carbon Dioxide 25 mmol/L (22-29) 08/22/25 04:52 Anion Gap 14.7 (5-19) 08/22/25 04:52 BUN 9 mg/dL (6-20) 08/22/25 04:52 Creatinine 0.9 mg/dL (0.5-0. 9) 08/22/25 04:52 GFR Calculation 75.1 mL/min (90-1 30) L 08/22/25 04:52 Glucose 92 mg/dL (65-115) 08/22/25 04:52 Calculated Osmolal ity 290 mOsm/kg (285- 295) 08/22/25 04:52 Calcium 8.9 mg/dL (8.5-10 .5) 08/22/25 04:52 Total Bilirubin 0.2 mg/dL (0.15-1 .2) 08/22/25 04:52 AST 29 U/L (0-32) 08/22/25 04:52 ALT 33 U/L (0-33) 08/22/25 04:52 Alkaline Phosphata se 119 U/L (35-105) H 08/22/25 04:52 Total Protein 6.6 g/dL (6.6-8.7 ) 08/22/25 04:52 Albumin 3.8 g/dL (3.5-5.2 ) 08/22/25 04:52 Globulin 2.8 g/dL (1.3-4.6 ) 08/22/25 04:52 TSH 2.47 uIU/mL (0.27 -4.20) 08/22/25 04:52 HCG, Qual Negative (Negati ve) 08/22/25 04:33 Urine Color Yellow (Yellow) 08/22/25 04:33 Urine Appearance Clear (CLEAR) 08/22/25 04:33 Urine pH 7.0 (5-7) 08/22/25 04:33 Ur Specific Gravit y 1.026 (1.005-1.0 30) 08/22/25 04:33 Urine Protein Trace (Negative) A 08/22/25 04:33 Urine Glucose (UA) Negative (Normal ) 08/22/25 04:33 Urine Ketones Trace (Negative) 08/22/25 04:33 Urine Blood Negative (Negati ve) 08/22/25 04:33 Urine Nitrate Negative (Negati ve) 08/22/25 04:33 Urine Bilirubin Negative (Negati ve) 08/22/25 04:33 Urine Urobilinogen 1.0 mg/dL (Negati ve) 08/22/25 04:33 Ur Leukocyte Juanita ase Trace (Negative) A 08/22/25 04:33 Urine RBC 0-4 /hpf (0-2) H 08/22/25 04:33 Urine WBC 5-10 /hpf (0-5) H 08/22/25 04:33 Ur Squamous Epith Cells 15-25 /hpf (0-5) H 08/22/25 04:33 Amorphous Sediment Not Reportable 08/22/25 04:33 Urine Bacteria 1+ /hpf (NONE) H 08/22/25 04:33 Urine Mucus 2+ /hpf 08/22/25 04:33 Salicylates < 0.3 mg/dL (3-10 ) L 08/22/25 04:52 Urine Opiates Scre en Negative ng/mL (N egative) 08/22/25 04:33 Acetaminophen < 5.0 ug/mL (10-3 0) L 08/22/25 04:52 Ur Barbiturates Sc reen Negative ng/mL (N egative) 08/22/25 04:33 Ur Phencyclidine S crn Negative ng/mL (N egative) 08/22/25 04:33 Ur Amphetamines Sc reen Negative ng/mL (N egative) 08/22/25 04:33 U Benzodiazepines Scrn Negative ng/mL (N egative) 08/22/25 04:33 Urine Cocaine Scre en Negative ng/mL (N egative) 08/22/25 04:33 U Marijuana (THC) Screen Positive ng/mL (N egative) H 08/22/25 04:33 Ethyl Alcohol < 10 mg/dL (0-10) 08/22/25 04:52 Influenza A (PCR) Negative (Negati ve) 08/22/25 04:33 Influenza Type B ( PCR) Negative (Negati ve) 08/22/25 04:33 RSV (PCR) Negative (Negati ve) 08/22/25 04:33 SARS-CoV-2 (PCR) Negative (Negati ve) 08/22/25 04:33 Vitals: Last Vital Signs Temp 97.9 F 08/27/25 06:00 Pulse 90 08/27/25 06:00 Resp 16 08/27/25 06:00 BP 107/75 08/27/25 06:00 Pulse Ox 99 08/27/25 06:00 O2 Del Method Room Air 08/27/25 06:00 Discharge Plan Discharge Patient Disposition: Home Condition: Stable Prescriptions: New sertraline 100 mg tablet 100 mg PO DAILY 30 Days Qty: 30 1RF Rx Instructions: Continue one half for 6 days then go to 1 tablet docusate sodium 100 mg Capsule 100 mg PO DAILY PRN (Reason: Constipation) 30 Days Qty: 30 1RF olanzapine 5 mg Tablet,Disintegrating 5 mg PO DAILY PRN (Reason: Agitation/Psychosis) 30 Days Qty: 30 1RF Continued acetaminophen 325 mg capsule 325 mg PO QID PRN (Reason: Pain) [place] with Extra Iron 18 mg iron tablet,chewable 1 tab PO DAILY Patient Comments: with folic acid Discontinued escitalopram oxalate 10 mg tablet 10 mg PO DAILY Discharge Order = DC NOW: Discharge Order (Routine); Ordered 08/27/25 Ordered By: Dru Glez Referrals: Yumiko John DO [Primary Care Provider, Family Practice] Discharge Diet: Regular Discharge Activity: Resume usual activity Patient Instructions: Opioid Safety, Patient Portal & Arnold Instructions Coding Level of Care Code Acute Code for Chg Fwd Diagnoses Cyclothymic disorder F34.0 Chronic post-traumatic stress disorder F43.12 Generalized anxiety disorder F41.1 Depression F32.A Suicidal ideation R45.851 Cannabis use disorder F12.90
[2025-08-27 14:51] VITALS: BP 107/75; PULSE 90; RESP 16; TEMP 36.6; O2SAT 99
== END 2025-08-27 17:15 | disposition home or self-care (01) | DRG 883 ==
LOC: ER 06:12 → NP 15:41
PROVIDERS: Admitting Provider Psychiatry & Neurology Psychiatry; Emergency Provider Student in an Organized Health Care Education/Training Program; PCP Family Medicine; Visit Provider Psychiatry & Neurology Psychiatry
DX: F34.0 Cyclothymic disorder (principal); R45.851 Suicidal ideations; E66.9 Obesity, unspecified; Z68.32 Body mass index [BMI] 32.0-32.9, adult; F43.12 Post-traumatic stress disorder, chronic; F41.1 Generalized anxiety disorder; F32.A Depression, unspecified; F12.90 Cannabis use, unspecified, uncomplicated; F17.210 Nicotine dependence, cigarettes, uncomplicated; F17.290 Nicotine dependence, other tobacco product, uncomplicated
CPT/HCPCS: 36415; 71045; 80053; 80306; 80307; 81001; 81025; 84443; 85025; 87637; 97150; 97165; 99285; J9999; Q0162; Q0163

== ENCOUNTER → 2025-09-04 13:54 | Outpatient (BNVA) | payer MEDICAID, SELFPAY ==
[2025-01-17 10:06] VITALS: BP 140/85; BMI 34.8
== END ==
PROVIDERS: PCP Family Medicine; Visit Provider Obstetrics & Gynecology
DX: Z01.419 Encounter for gynecological examination (general) (routine) without abnormal findings (principal)
CPT/HCPCS: 87624